=== PATIENT | female | born 1970 | race Caucasian/White ===

== ENCOUNTER 2022-01-22 07:48 | Inpatient (IN) ==
--- NOTE | 2022-01-22 07:52 | Emergency Department Note ---
Impression & Plan Reactive airway disease, Acute respiratory failure with hypoxia and hypercarbia, Bilateral lower leg cellulitis ED Provider Note NAME: RAJEEV ARELLANO AGE: 51 SEX: F : 1970 ARRIVES VIA: Ambulance INFORMANT: Patient, ED PROVIDER(S): Jacky Willis MD Chief Complaint: Shortness of breath HPI: Patient presents from a skilled facility due to concern for verbalizing shortness of breath earlier today and was noted to be hypotensive and hypoxic with a systolic in the 90s and SPO2 86 to low 90s at the facility. EMS stated the patient had an improved blood pressure and was never hypoxic and room air sats were in the 90s. Patient did receive a DuoNeb in route. The patient states that she does have cough but is not sure as whether or not it is productive. Patient has any chest pain or abdominal pain nausea vomiting. Patient denies any head or neck pain. No recent falls. History may be limited given the patient's prior history of trisomy 21. ROS: See HPI for pertinent positives and negatives. A total of 10 systems were reviewed and otherwise negative. May be limited given patient's history of trisomy 21. Past medical history: See below Surgical history: See below Social history: See below Physical Exam: GENERAL: NAD, wearing a mask, non-toxic. Wearing glasses. EYE EXAM: Normal conjunctiva. PERRL, no anisocoria and EOM's grossly intact w/o pain. NECK: Supple, no nuchal rigidity, no adenopathy, non-tender. No signs of meningismus. FROM of the neck with good chin to chest and neck extension. No stridor. LUNGS: Audible wheezes throughout. Slightly prolonged expiratory phase. Normal chest wall mechanics. HEART: NSR, no MRG. ABDOMEN: Abdomen soft, non-tender, normo-active bowel sounds, no masses, no rebound or guarding. BACK: No CVA TTP. SKIN: No rashes and no bruising. UPPER EXTREMITIES: Upper extremities are grossly normal. LOWER EXTREMITIES: Grossly normal, 1-2+ symmetric bilateral lower extremity edema with associated erythema. No fluctuance or drainage, compartments are soft neurovascular tact distally. NEURO EXAM: A&O x3, cranial nerves II-XII grossly intact, normal speech, moves all 4 extremities. Differential diagnoses: Reactive airway disease, pneumonia, pneumothorax, COPD, CHF, infections, cardiac ischemia, pulmonary embolism, musculoskeletal, gastrointestinal, as well as other pathologies. Course: Patient was seen and evaluated the bedside. Full history physical exam was performed. EKG interpreted by me Normal sinus rhythm, rate of 63, normal intervals, normal axis, T wave version lead III no ST elevations. Imaging Studies: See Below Cardiac monitoring: An order was placed for continuous cardiac monitoring. The monitor shows a rate of 67 with sinus rhythm. MDM: Patient presented due to concern for hypoxemia and associated shortness of breath. Did review patient's most recent visit back in November and patient did have some pulmonary vascular congestion. The patient was treated from a respiratory standpoint with duo nebs and steroids. The patient was trialed on BiPAP to see if she would tolerate. Patient did have chest x-ray completed along with COVID swab troponin BMP and VBG. Patient does have symmetric bilateral lower extremities erythema. Rocephin was ordered. Patient's blood work showed a normal white count H&H and platelet count. The patient's kidney function was unremarkable as the patient is at virtual baseline with creatinine 1.35. Slightly elevated. Patient did receive additional IV fluids as the patient's troponin and BNP were negative but the patient did have an elevated PCO2 of 80 the VBG pH is 7.31. Patient was also ordered additional neb treatments. I did encourage the patient remain on the BiPAP. The patient's chest x-ray does not show any acute findings. I did speak with Amy Poole PA-C and the patient was admitted by Dr. Murillo. Critical Care: I have personally spent 77 minutes of critical care time in direct management of this patient. This includes bedside care, interpretation of diagnostic studies, and testing, discussion with consultants, patient, and family members, and other require inpatient management activities. This 77 minutes is in excess of all separately billable procedures. Past Med/Surg History Medical History Acute respiratory failure with hypercapnia Acute respiratory failure with hypoxia and hypercapnia Dementia Depression Down syndrome Hx of breast lump Hypercapnia Hypercholesteremia Hypertension Hypoxia Primary hypothyroidism Surgical History S/P cataract surgery Family History Unknown History not obtained Per new pt paperwork family history is "unknown" Social History Smoking Status: Never smoker Hx Alcohol Use: No Hx Substance Use: No Feels Safe at Home: Yes Allergies Allergies Allergy/AdvReac Type Severity Reaction Status Date / Time No Known Drug Allergies Allergy Verified 12/23/21 12:57 Home Meds Home Medications Medication Instructions Recorded Confirmed atorvastatin 10 mg tablet 10 mg PO HS 01/18/19 01/22/22 bupropion HCl 300 mg 24 hr tablet, 300 mg PO DAILY 01/18/19 01/22/22 extended release calcium carbonate 600 mg calcium 600 mg PO DAILY 01/18/19 01/22/22 (1,500 mg) tablet carboxymethylcellulose sodium 0.5 1 drp ophthalmic (eye) BID 01/18/19 01/22/22 % eye drops in a dropperette donepezil 10 mg tablet 10 mg PO DAILY 01/18/19 01/22/22 quetiapine 25 mg tablet 25 mg PO DAILY 01/18/19 01/22/22 levothyroxine 100 mcg tablet 125 mcg PO DAILY 10/15/21 01/22/22 docusate sodium 100 mg capsule 100 mg PO BID 01/22/22 01/22/22 Results & Data (ED) Vital Signs Vital Signs - 24 hr 01/22/22 07:55 01/22/22 07:55 01/22/22 08:01 Temperature 36.6 C Temperature Source Oral Pulse Rate 64 Pulse Rate [Apical] Respiratory Rate 20 Respiratory Effort / Characteristics Respiratory Depth Blood Pressure 109/48 L Blood Pressure [Left Arm] Blood Pressure Mean 68 Blood Pressure Mean [Left Arm] Pulse Oximetry 93 92 99 Oxygen Delivery Method Room Air Room Air Nasal Cannula Nasal Cannula Oxygen Flow Rate 0 4 Fraction of Inspired Oxygen Sepsis Recent Fever Within 48 Hours No Sepsis New/Unexplained Change in Mental Status No Sepsis Action Taken by Nursing No Action Required Oxygen Flow Rate - Titration 4 Pulse Oximetry Post Tiitration 99 01/22/22 08:09 01/22/22 08:12 01/22/22 09:41 Temperature Temperature Source Pulse Rate 67 Pulse Rate [Apical] 67 60 Respiratory Rate 34 H 34 H 25 H Respiratory Effort / Characteristics Spontaneous Spontaneous Non-Labored Spontaneous Respiratory Depth Shallow Blood Pressure Blood Pressure [Left Arm] Blood Pressure Mean Blood Pressure Mean [Left Arm] Pulse Oximetry 96 96 95 Oxygen Delivery Method BiPAP BiPAP Oxygen Flow Rate Fraction of Inspired Oxygen 24 24 21 Sepsis Recent Fever Within 48 Hours Sepsis New/Unexplained Change in Mental Status Sepsis Action Taken by Nursing Oxygen Flow Rate - Titration Pulse Oximetry Post Tiitration 01/22/22 09:49 Temperature Temperature Source Pulse Rate Pulse Rate [Apical] 62 Respiratory Rate 20 Respiratory Effort / Characteristics Respiratory Depth Blood Pressure Blood Pressure [Left Arm] 126/69 Blood Pressure Mean Blood Pressure Mean [Left Arm] 88 Pulse Oximetry 95 Oxygen Delivery Method BiPAP Oxygen Flow Rate Fraction of Inspired Oxygen Sepsis Recent Fever Within 48 Hours Sepsis New/Unexplained Change in Mental Status Sepsis Action Taken by Nursing Oxygen Flow Rate - Titration Pulse Oximetry Post Tiitration Home Medications Current Medication List: was personally reviewed by me Laboratory Data Attestation: I reviewed the patient's lab results. Result diagrams: 01/22/22 08:35 01/22/22 08:35 Lab Results 01/22/22 01/22/22 01/22/22 Range/Units 08:05 08:35 08:35 WBC 5.23 (4.8-10.8) K/ul RBC 4.28 (3.93-5.22) M/uL Hgb 13.6 (12.0-16.0) g/dl Hct 42.2 (34.1-44.9) % MCV 98.6 (80.0-100.0) fL MCH 31.8 (25.0-34.0) pg MCHC 32.2 (32.0-36.0) g/dL RDW Std Deviation 50.4 H (36.4-46.3) fL RDW Coeff of Matt 13.7 (11.5-14.5) % Plt Count 153 (130-400) K/uL MPV 10.1 (9.4-12.3) fL Immature Gran % (Auto) 1.1 % Neut % (Auto) 33.4 % Lymph % (Auto) 52.0 % [place] % (Auto) 10.1 % Eos % (Auto) 2.3 % Baso % (Auto) 1.1 % Neut # (Auto) 1.74 (1.4-6.5) K/uL Lymph # (Auto) 2.72 (1.2-3.4) K/uL [place] # (Auto) 0.53 (0.24-0.82) K/uL Eos # (Auto) 0.12 (0-0.50) K/uL Baso # (Auto) 0.06 (0-0.2) K/uL Immature Gran # (Auto) 0.06 H (0.00-0.02) K/uL PT (9.0-12.0) Seconds INR (0.9-1.1) APTT (21.0-31.0) Seconds PTT Ratio VBG pH (7.36-7.41) VBG pCO2 (38-50) mmHg VBG pO2 mmHg VBG HCO3 mmol/L VBG O2 Saturation % VBG Base Excess mEq/L Sodium 139 (136-145) mmol/L Potassium 4.4 (3.5-5.1) mmol/L Chloride 100 (98-107) mmol/L Carbon Dioxide 35 H (21-32) mmol/L Anion Gap 4 (3-11) BUN 20 (6-23) mg/dl Creatinine 1.35 H (0.6-1.2) mg/dl Est Cr Clr Drug Dosing 62.2 ml/min Est GFR ( Amer) 51.8 ml/min Est GFR (Non-Af Amer) 44.7 ml/min BUN/Creatinine Ratio 14.8 (10-20) Glucose 108 H (70-99(Fasting)) mg/dl Calcium 8.9 (8.5-10.1) mg/dl Magnesium 1.9 (1.7-2.4) mg/dl Total Bilirubin 0.4 (0.2-1.0) mg/dl AST 23 (13-39) U/L ALT 14 (7-52) U/L Alkaline Phosphatase 80 (34-104) U/L Troponin I High Sens 6.2 (0-14) pg/ml B-Natriuretic Peptide (0-100) pg/ml Total Protein 6.1 (6.0-8.3) gm/dl Albumin 3.7 (3.4-5.0) gm/dl Globulin 2.4 L (2.5-4.0) gm/dl Albumin/Globulin Ratio 1.5 (0.9-2) Procalcitonin (0-0.5) ng/ml SARS-CoV-2, RNA, NAAT NEGATIVE (NEGATIVE) 01/22/22 01/22/22 01/22/22 Range/Units 08:35 08:35 08:35 WBC (4.8-10.8) K/ul RBC (3.93-5.22) M/uL Hgb (12.0-16.0) g/dl Hct (34.1-44.9) % MCV (80.0-100.0) fL MCH (25.0-34.0) pg MCHC (32.0-36.0) g/dL RDW Std Deviation (36.4-46.3) fL RDW Coeff of Matt (11.5-14.5) % Plt Count (130-400) K/uL MPV (9.4-12.3) fL Immature Gran % (Auto) % Neut % (Auto) % Lymph % (Auto) % [place] % (Auto) % Eos % (Auto) % Baso % (Auto) % Neut # (Auto) (1.4-6.5) K/uL Lymph # (Auto) (1.2-3.4) K/uL [place] # (Auto) (0.24-0.82) K/uL Eos # (Auto) (0-0.50) K/uL Baso # (Auto) (0-0.2) K/uL Immature Gran # (Auto) (0.00-0.02) K/uL PT (9.0-12.0) Seconds INR (0.9-1.1) APTT (21.0-31.0) Seconds PTT Ratio VBG pH 7.31 L (7.36-7.41) VBG pCO2 80 H (38-50) mmHg VBG pO2 33 mmHg VBG HCO3 40 mmol/L VBG O2 Saturation < 60.0 % VBG Base Excess 10.6 mEq/L Sodium (136-145) mmol/L Potassium (3.5-5.1) mmol/L Chloride (98-107) mmol/L Carbon Dioxide (21-32) mmol/L Anion Gap (3-11) BUN (6-23) mg/dl Creatinine (0.6-1.2) mg/dl Est Cr Clr Drug Dosing ml/min Est GFR ( Amer) ml/min Est GFR (Non-Af Amer) ml/min BUN/Creatinine Ratio (10-20) Glucose (70-99(Fasting)) mg/dl Calcium (8.5-10.1) mg/dl Magnesium (1.7-2.4) mg/dl Total Bilirubin (0.2-1.0) mg/dl AST (13-39) U/L ALT (7-52) U/L Alkaline Phosphatase (34-104) U/L Troponin I High Sens (0-14) pg/ml B-Natriuretic Peptide 20 (0-100) pg/ml Total Protein (6.0-8.3) gm/dl Albumin (3.4-5.0) gm/dl Globulin (2.5-4.0) gm/dl Albumin/Globulin Ratio (0.9-2) Procalcitonin < 0.05 (0-0.5) ng/ml SARS-CoV-2, RNA, NAAT (NEGATIVE) 01/22/22 Range/Units 09:03 WBC (4.8-10.8) K/ul RBC (3.93-5.22) M/uL Hgb (12.0-16.0) g/dl Hct (34.1-44.9) % MCV (80.0-100.0) fL MCH (25.0-34.0) pg MCHC (32.0-36.0) g/dL RDW Std Deviation (36.4-46.3) fL RDW Coeff of Matt (11.5-14.5) % Plt Count (130-400) K/uL MPV (9.4-12.3) fL Immature Gran % (Auto) % Neut % (Auto) % Lymph % (Auto) % [place] % (Auto) % Eos % (Auto) % Baso % (Auto) % Neut # (Auto) (1.4-6.5) K/uL Lymph # (Auto) (1.2-3.4) K/uL [place] # (Auto) (0.24-0.82) K/uL Eos # (Auto) (0-0.50) K/uL Baso # (Auto) (0-0.2) K/uL Immature Gran # (Auto) (0.00-0.02) K/uL PT 14.5 H (9.0-12.0) Seconds INR 1.4 H (0.9-1.1) APTT 29.1 (21.0-31.0) Seconds PTT Ratio 1.1 VBG pH (7.36-7.41) VBG pCO2 (38-50) mmHg VBG pO2 mmHg VBG HCO3 mmol/L VBG O2 Saturation % VBG Base Excess mEq/L Sodium (136-145) mmol/L Potassium (3.5-5.1) mmol/L Chloride (98-107) mmol/L Carbon Dioxide (21-32) mmol/L Anion Gap (3-11) BUN (6-23) mg/dl Creatinine (0.6-1.2) mg/dl Est Cr Clr Drug Dosing ml/min Est GFR ( Amer) ml/min Est GFR (Non-Af Amer) ml/min BUN/Creatinine Ratio (10-20) Glucose (70-99(Fasting)) mg/dl Calcium (8.5-10.1) mg/dl Magnesium (1.7-2.4) mg/dl Total Bilirubin (0.2-1.0) mg/dl AST (13-39) U/L ALT (7-52) U/L Alkaline Phosphatase (34-104) U/L Troponin I High Sens (0-14) pg/ml B-Natriuretic Peptide (0-100) pg/ml Total Protein (6.0-8.3) gm/dl Albumin (3.4-5.0) gm/dl Globulin (2.5-4.0) gm/dl Albumin/Globulin Ratio (0.9-2) Procalcitonin (0-0.5) ng/ml SARS-CoV-2, RNA, NAAT (NEGATIVE) Administered Medications Azithromycin 500 mg/ Dextrose 255 mls @ 125 mls/hr IV ONE ONE Stop: 01/22/22 15:06 Last Admin: 01/22/22 14:00 Dose: 125 mls/hr Documented By: ENS Discontinued Medications Albuterol (Albut/Ipratrop 3mg/0.5mg Neb 3 Ml Vial) 3 ml INH NOW STA Stop: 01/22/22 07:59 Last Admin: 01/22/22 08:11 Dose: 3 ml Documented By: KMS Albuterol (Albut/Ipratrop 3mg/0.5mg Neb 3 Ml Vial) 6 ml NEB NOW STA; Protocol Stop: 01/22/22 09:21 Last Admin: 01/22/22 09:40 Dose: 6 ml Documented By: EM Furosemide (Furosemide Inj 20 Mg/2 Ml Vial) 20 mg IV ONE ONE Stop: 01/22/22 12:07 Last Admin: 01/22/22 12:32 Dose: 20 mg Documented By: AY Sodium Chloride (Nss 1000ml) 250 mls @ 999 mls/hr IV .Q16M ONE Stop: 01/22/22 08:17 Last Infusion: 01/22/22 09:12 Dose: 0 mls/hr Documented By: Admin: 01/22/22 08:55 Dose: 999 mls/hr Documented By: OL Ceftriaxone Sodium (Rocephin) 2,000 mg in 70 mls @ 140 mls/hr IV NOW STA Stop: 01/22/22 08:31 Last Infusion: 01/22/22 09:27 Dose: 0 mls/hr Documented By: Admin: 01/22/22 08:55 Dose: 140 mls/hr Documented By: OL Sodium Chloride (Nss 1000ml) 500 mls @ 999 mls/hr IV .Q31M ONE Stop: 01/22/22 09:50 Last Infusion: 01/22/22 10:19 Dose: 0 mls/hr Documented By: Admin: 01/22/22 09:48 Dose: 999 mls/hr Documented By: OL Lorazepam (Lorazepam 2 Mg/2 Ml Syr) 1 mg IV NOW STA; Protocol Stop: 01/22/22 08:24 Last Admin: 01/22/22 09:00 Dose: Not Given Documented By: OL Magnesium Oxide (Magnesium Oxide 400 Mg Tab) 400 mg PO ONCE ONE Stop: 01/22/22 12:16 Last Admin: 01/22/22 12:32 Dose: 400 mg Documented By: AY Methylprednisolone (Methylprednisolone 125 Mg/2 Ml Vial) 60 mg IV NOW STA Stop: 01/22/22 07:59 Last Admin: 01/22/22 08:55 Dose: 60 mg Documented By: OL Imaging Data Radiologist's Impression: Chest X-Ray 01/22/22 07:58 XR chest 1V portable CLINICAL HISTORY: Dyspnea. COMPARISON STUDY: Chest radiograph December 14, 2021. FINDINGS: Lung volumes are normal. Lungs are clear. There is no pneumothorax or pleural effusion. Cardiac size is normal. Mediastinal contours are normal. There is no evidence for pulmonary edema. Pulmonary vascular congestion has slightly improved. IMPRESSION: No acute cardiopulmonary findings. ACT 112: Negative or not required by law. Electronically signed by: Darryl Hays M.D. 01/22/2022 8:33 AM Discharge Plan Visit Data Chief Complaint: Shortness of Breath/Dyspnea Stated Complaint: SOB ED Provider: Jacky Willis Discharge Problem: Reactive airway disease, Acute respiratory failure with hypoxia and hypercarbia, Bilateral lower leg cellulitis
[2022-01-22] MEDS ORDERED: ALBUT/IPRATROP 3MG/0.5MG NEB 3 ML VIAL INH STA (07:58)
[2022-01-22] MEDS ORDERED: methylPREDNISolone 125 MG/2 ML VIAL IV STA (07:58)
[2022-01-22] MEDS ORDERED: cefTRIAXone SODIUM 2,000 MG/70 ML BAG IV STA (08:02)
[2022-01-22] MEDS ORDERED: SODIUM CHLORIDE 0.9% 1000ML 250 ML IV ONE (08:02)
[2022-01-22] MEDS ORDERED: LORazepam 2 MG/2 ML SYR IV STA (08:23)
--- NOTE | 2022-01-22 08:34 | XRay Report ---
XR chest 1V portable CLINICAL HISTORY: Dyspnea. COMPARISON STUDY: Chest radiograph December 14, 2021. FINDINGS: Lung volumes are normal. Lungs are clear. There is no pneumothorax or pleural effusion. Car diac size is normal. Mediastinal contours are normal. There is no evidence for pulmonary edema. Pulmo nary vascular congestion has slightly improved. IMPRESSION: No acute cardiopulmonary findings. ACT 112: Negative or not required by law. Electronically signed by: Darryl Hays M.D. 01/22/2022 8:33 AM
[2022-01-22 08:51] LABS: Hematocrit (blood only) 42.2 % (34.1-44.9); Hemoglobin 13.6 g/dl (12.0-16.0); Mean Corpuscular Hemoglobin 31.8 pg (25.0-34.0); Mean Corpuscular Hgb Conc 32.2 g/dL (32.0-36.0); Mean Corpuscular Volume 98.6 fL (80.0-100.0); Mean Platelet Volume 10.1 fL (9.4-12.3); Platelet Count 153 K/uL (130-400); RDW Coefficient of Variation 13.7 % (11.5-14.5); RDW Standard Deviation 50.4 fL (36.4-46.3); Red Blood Count 4.28 M/uL (3.93-5.22); White Blood Count 5.23 K/ul (4.8-10.8)
[2022-01-22 09:02] LABS: Base Excess VBG 10.6 mEq/L; HCO3 VBG 40 mmol/L; Oxygen Saturation VBG < 60.0 %; PCO2 VBG 80 mmHg (38-50); PO2 VBG 33 mmHg; pH VBG 7.31 (7.36-7.41)
[2022-01-22] MEDS ORDERED: SODIUM CHLORIDE 0.9% 1000ML 500 ML IV ONE (09:20)
[2022-01-22] MEDS ORDERED: ALBUT/IPRATROP 3MG/0.5MG NEB 3 ML VIAL NEB STA (09:20)
[2022-01-22 09:21] LABS: Albumin Globulin Ratio 1.5 (0.9-2); Albumin Level 3.7 gm/dl (3.4-5.0); BUN Creatinine Ratio 14.8 (10-20); Bilirubin,Total 0.4 mg/dl (0.2-1.0); Calcium 8.9 mg/dl (8.5-10.1); Creatinine Clr Calc Pharmacy 62.2 ml/min; Est GFR (African American) 51.8 ml/min; Est GFR (Non-African American) 44.7 ml/min; Globulin 2.4 gm/dl (2.5-4.0); Magnesium 1.9 mg/dl (1.7-2.4); Potassium 4.4 mmol/L (3.5-5.1); Total Protein 6.1 gm/dl (6.0-8.3)
[2022-01-22 09:23] LABS: Troponin I High Sensitivity 6.2 pg/ml (0-14)
[2022-01-22 09:43] LABS: Basophils # (auto) 0.06 K/uL (0-0.2); Basophils % (auto) 1.1 %; Eosinophils # (auto) 0.12 K/uL (0-0.50); Eosinophils % (auto) 2.3 %; Immature Granulocytes # (auto) 0.06 K/uL (0.00-0.02); Immature Granulocytes % (auto) 1.1 %; Lymphocytes # (auto) 2.72 K/uL (1.2-3.4); Monocytes # (auto) 0.53 K/uL (0.24-0.82); Monocytes % (auto) 10.1 %; Neutrophils # (auto) 1.74 K/uL (1.4-6.5); Neutrophils % (auto) 33.4 %
[2022-01-22 09:46] LABS: INR 1.4 (0.9-1.1); Partial Thromboplastin Ratio 1.1; Partial Thromboplastin Time 29.1 Seconds (21.0-31.0); Prothrombin Time 14.5 Seconds (9.0-12.0)
--- NOTE | 2022-01-22 10:49 | History & Physical Report ---
Date of Service January 22, 2022 Assessment & Plan (1) Acute respiratory failure with hypoxia and hypercapnia: (2) Dementia: (3) Primary hypothyroidism: (4) Depression: (5) Down syndrome: Plan Ms. Wayen is a 51 year old female who presents to the [facility] from her home at [facility] with shortness of breath and hypotension. VBG done; will obtain ABG. On Bipap and improving. Pulm consult for new respiratory failure (possible COPD), CXR in AM, IV abx x 5 days. Consideration for her symptoms being cardiogenic in nature vs coexisting alveolar disease. Will consult pulmonary for further direction. Acute Respiratory failure with hypoxia and hypercapnia: Multi-factorial. 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 CXR negative today; compared with 12/14 with vascular congestion. Possible cardiogenic in nature; will give one dose Lasix now. Pulmonary consult placed; poss PFT's when stable, none in history. No history of asthma or documented COPD If tolerating Bipap, may need to look at Pulm recc on Trilogy VBG: pH 7.31, CO2 80, HCO3 40; will repeat Last ECHO 07/03: EF 55%; will repeat today procal pending Pt was placed on Bipap in ED FiO2 21%, Pinsp 8, PEEP 5 Mg+ 1.9; replete with PO; trend in AM. Started on Rocephin in ED. Will order Azithromycin IV x 5 days Methylprednisone IV TID CXR in AM. Covid negative BNP and Trop neg Down Syndrome: Some history obtained not reliable due to intellect challenges Pt lives at [facility]; has 09/11 nursing caregiver Follows bowel regimen every third day; due today. They use MOM PO once. Dementia: Stable; on Aricept FAST score: all of 6 requires staff to anticipate most of her ADL needs Primary Hypothyroidism: Stable; TSH 12/31: 0.87; continue Levothyroxine Depression with Anxiety: Follows at [facility] with Psych caregiver notes audible and visual hallucinations Takes Seroquel and Buproprion; continue HLD: Stable; continue atorvastatin lipid panel in AM Disposition: PCP: Dr. uDmont Code: Full VTE Prophylaxis: Lovenox Plan to return to [facility] upon DC I personally was able to review all current laboratory work and diagnostic images obtained in the ED. Additionally, I was able to review the patients past medication reconciliation and history with direct visualization in the patients chart. I collaborated about this patient with Dr. Murillo. History of Present Illness Chief Complaint: shortness of breath/hypotension Primary Care Provider: Christine Dumont MD Ms. Wayne is a 51 year old female who presents to the [facility] from her home at [facility] with shortness of breath and hypotension. Per EMS she was noted to be hypoxic in the mid to high 80s and hypotensive with a SBP in the 90s. In route she was given a duoneb treatment. CXR was obtained and negative. She was recently in the ED on 12/14/2021 for similar symptoms and some vascular congestion was noted. Patient was placed on Bipap FiO2 21% and is tolerating well. Will admit patient and check ABG. She was given a dose of Methylprednisone and was started on Rocephin for possible bilateral lower extremity cellulitis. Patient has a PMH that includes Trisomy 21, HLD, primary HTN, hypothyroidism, dementia, and depression with anxiety. In the ED, the patient was sitting upright in her bed in no apparent distress. She is awake, alert, and oriented to herself, but all medical details obtained from her caregiver Marla in the room. Patient denies SOTO, dizziness, SOB and CP. Poor historian and not reliable with ROS. During my review of the chart, the patients most recent ECHO was 07/08 with an EF of 55%. Patient does not have a reportable pulmonary history with no report of asthma or COPD. No PFTs on file. Pt does have a rescue inhaler but has not used it recently. Consideration for her symptoms being cardiogenic in nature vs coexisting alveolar disease. Will consult pulmonary for further direction. Patient will be admitted under the hospitalist service for further evaluation and management. Please see A/P for further details. Allergies Allergy/AdvReac Type Severity Reaction Status Date / Time No Known Drug Allergies Allergy Verified 12/23/21 12:57 Home Medications Medication Instructions Recorded Confirmed Type atorvastatin 10 mg tablet 10 mg PO HS 01/18/19 01/22/22 History bupropion HCl 300 mg 24 hr tablet, 300 mg PO DAILY 01/18/19 01/22/22 History extended release calcium carbonate 600 mg calcium 600 mg PO DAILY 01/18/19 01/22/22 History (1,500 mg) tablet carboxymethylcellulose sodium 0.5 1 drp ophthalmic (eye) BID 01/18/19 01/22/22 History % eye drops in a dropperette donepezil 10 mg tablet 10 mg PO DAILY 01/18/19 01/22/22 History quetiapine 25 mg tablet 25 mg PO DAILY 01/18/19 01/22/22 History levothyroxine 100 mcg tablet 125 mcg PO DAILY 10/15/21 01/22/22 History docusate sodium 100 mg capsule 100 mg PO BID 01/22/22 01/22/22 History Past Med/Surg History Medical History Acute respiratory failure with hypercapnia Acute respiratory failure with hypoxia and hypercapnia Dementia Depression Down syndrome Hx of breast lump Hypercapnia Hypercholesteremia Hypertension Hypoxia Primary hypothyroidism Surgical History S/P cataract surgery Family History Unknown History not obtained Per new pt paperwork family history is "unknown" Social History Smoking Status: Never smoker Hx Alcohol Use: No Hx Substance Use: No Preferred Language: Albanian Communication Ability: Effective 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 Lungs posteriorly expiratory wheezes GI: Abdomen large S/NT/ND, hypoactive bowel sounds, (-) CVA tenderness Musculoskeletal: 4/5 B/L UE strength, 4/5 B/L LE strength. No gait disturbance; uses walker Skin: (-) rashes , (-) erythema. Psych: euthymic mood Results & Data Results & Data ([facility]) Vital Signs (Past 12 Hours) Vital Signs Temp Pulse Pulse Resp BP BP Pulse Ox 01/22/22 09:49 62 20 126/69 95 01/22/22 09:41 60 25 H 95 01/22/22 08:12 67 34 H 96 01/22/22 08:09 67 34 H 96 01/22/22 08:01 99 01/22/22 07:55 92 01/22/22 07:55 36.6 C 64 20 109/48 L 93 O2 Del Method O2 Flow Rate FiO2 01/22/22 09:49 BiPAP 01/22/22 09:41 BiPAP 21 01/22/22 08:12 BiPAP 24 01/22/22 08:09 24 01/22/22 08:01 Nasal Cannula 4 01/22/22 07:55 Room Air, Nasal Cannula 0 01/22/22 07:55 Room Air Laboratory Results Short CBC 01/22/22 Range/Units 08:35 WBC 5.23 (4.8-10.8) K/ul Hgb 13.6 (12.0-16.0) g/dl Hct 42.2 (34.1-44.9) % Plt Count 153 (130-400) K/uL BMP 01/22/22 08:35 Sodium 139 Potassium 4.4 Chloride 100 Carbon Dioxide 35 H BUN 20 Creatinine 1.35 H Glucose 108 H Calcium 8.9 Liver Function 01/22/22 Range/Units 08:35 Total Bilirubin 0.4 (0.2-1.0) mg/dl AST 23 (13-39) U/L ALT 14 (7-52) U/L Alkaline Phosphatase 80 (34-104) U/L Albumin 3.7 (3.4-5.0) gm/dl Diagnostic Findings Chest X-Ray 01/22/22 07:58 XR chest 1V portable CLINICAL HISTORY: Dyspnea. COMPARISON STUDY: Chest radiograph December 14, 2021. FINDINGS: Lung volumes are normal. Lungs are clear. There is no pneumothorax or pleural effusion. Cardiac size is normal. Mediastinal contours are normal. There is no evidence for pulmonary edema. Pulmonary vascular congestion has slightly improved. IMPRESSION: No acute cardiopulmonary findings. ACT 112: Negative or not required by law. Electronically signed by: Darryl Hays M.D. 01/22/2022 8:33 AM ECG Additional Comments: NSR Vent. Rate : 063 BPM Atrial Rate : 063 BPM P-R Int : 128 ms QRS Dur : 076 ms QT Int : 410 ms QTc Int : 419 ms Code Status & VTE Plan Code Status full code in the event of cardiac or respiratory arrest VTE Prophylaxis Plan VTE Prophylaxis will be ordered: Yes Supervising Physician Co-Signing Physician Notes 51-year-old lady from a skilled assisted living with PMH of Down syndrome, dementia, primary hypothyroidism, depression with anxiety, HLD presented to ED 01/22 with complaint of shortness of breath and hypertension. Per EMS, she was noted to be hypoxic in the 80s and hypotensive with SBP in the 90s. Per patient's caregiver at bedside, her SPO2 varied between 84 to 91% and blood pressure was in 90s/60s [generally her blood pressure is in 130s/80s]. Patient reports some dry cough, denies any fever or chest pain or sore throat. Her baseline creatinine is around 1.3-1.5. Admitting CXR with no acute findings. Admitting BNP of 20. Patient does take Lasix every other day for lower extremity swelling. Per caregiver, patient does have history of heart f ailure. We will get updated echo. Received a dose of iv lasix today. Patient was wheezing on exam. Admitting VBG with hypercapnia noted. Patient was placed on BiPAP in the ED. Patient received Solu-Medrol in the ED. Likely reactive airway disease, concern for asthma, not a prior diagnosis of asthma COPD per patient's caregiver. We will continue with Solu-Medrol 3 times daily. rocephin/azithro for pulmonary coverage initiated initially, procal and WBC normal, will monitor off of antibiotic. Pulmonology consult. Monitor and replete electrolytes. Continue with/resume home meds as and when appropriate. Also concern for likely MICHI/OHS secondary to morbid obesity, will benefit from outpatient sleep study. On exam: GENERAL: Alert and oriented x3. NAD, on BiPAP, obese class III. HEENT: No pallor, no icterus. Pupils equal, round and reactive to light. Oral mucosa moist. NECK: No JVD, no neck masses. HEART: S1 and S2 heard. Regular rate and rhythm. No murmur, no gallop. RESPIRATORY SYSTEM: Normal AP diameter. No accessory muscle use. + wheezing, no crackles. ABDOMEN: Soft, bowel sounds present, nontender, no distention. CENTRAL NERVOUS SYSTEM: No facial droop. Speech is clear. Obeys simple commands. Moves extremities. EXTREMITIES: 1-2+ edema, no erythema seen. I have seen and examined the patient and have discussed the case with the provider above. I agree with the assessment and plan as stated.
[2022-01-22] MEDS ORDERED: FUROSEMIDE INJ 20 MG/2 ML VIAL IV ONE (12:06)
[2022-01-22] MEDS ORDERED: MAGNESIUM OXIDE 400 MG TAB PO ONE (12:15)
--- NOTE | 2022-01-22 12:19 | Pulmonary Consultation ---
Date of Consultation January 22, 2022 Assessment & Plan (1) Reactive airway disease: Asthma complication type: with acute exacerbation Asthma persi stence: unspecified Asthma severity: unspecified severity Qualified Code(s): J45.901 - Unspecified asthma with (acute) exacerbation (2) Acute respiratory failure with hypoxia and hypercapnia: (3) Morbid obesity: Plan Chest x-ray 01/22/2022 personally reviewed: Portable film, good respiratory eff ort, bilateral costophrenic and cardiophrenic encircling, no clear lung infiltrate appreciated VBG 01/22/2022: pH 7.31/80/33 -- Acute on chronic hypercapnic respiratory failure Likely secondary to MICHI/OHS Possibility of asthma is also there, expiratory wheeze could also be from dynamic collapse COVID-19 NAAT negative Continue with BiPAP nightly and as needed shortness of breath Will repeat ABG in the morning, if the patient is still hypercapnic and she might benefit from trilogy machine Do not over oxygenate the patient. Keep O2 saturation between 88-92% -- Morbid obesity with probable MICHI/OHS Bicarb 35 in the serum -- Lower extremity edema Could be from pulmonary hypertension Would recommend 2D echo Plan: Continue with BiPAP 01/22 Do not over oxygenate the patient Keep O2 saturation between 88-92% Decree Solu-Medrol to 40 mg every 12, start the patient on Perforomist nebulized twice daily Please note the above document was generated using voice recognition software. It may contain grammatical, syntax or spelling errors.Any formal questions or concerns about the content, text or information contained within the body of this dictation should be directly addressed to the provider for clarification. History of Present Illness History of Present Illness 51-year-old female presented to the hospital with complaints of shortness of breath Past medical history Down syndrome, dyslipidemia, hypothyroidism, depression with anxiety Patient was found to be mildly hypercapnic on the VBG, pulmonary were consulted for the same At the time of examination patient was saturating well on room air Patient is a poor historian. Patient said that she is feeling better since coming to the hospital She was on room air saturating 94%. Denied any chest pain, no headache, occasional cough with clear phlegm No diarrhea, no fever or chills at home. Social history: Lifetime non-smoker. Allergies Allergy/AdvReac Type Severity Reaction Status Date / Time No Known Drug Allergies Allergy Verified 12/23/21 12:57 Home Medications Medication Instructions Recorded Confirmed Type atorvastatin 10 mg tablet 10 mg PO HS 01/18/19 01/22/22 History bupropion HCl 300 mg 24 hr tablet, 300 mg PO DAILY 01/18/19 01/22/22 History extended release calcium carbonate 600 mg calcium 600 mg PO DAILY 01/18/19 01/22/22 History (1,500 mg) tablet carboxymethylcellulose sodium 0.5 1 drp ophthalmic (eye) BID 01/18/19 01/22/22 History % eye drops in a dropperette donepezil 10 mg tablet 10 mg PO DAILY 01/18/19 01/22/22 History quetiapine 25 mg tablet 25 mg PO DAILY 01/18/19 01/22/22 History levothyroxine 100 mcg tablet 125 mcg PO DAILY 10/15/21 01/22/22 History docusate sodium 100 mg capsule 100 mg PO BID 01/22/22 01/22/22 History Patient History Medical History Acute respiratory failure with hypercapnia Acute respiratory failure with hypoxia and hypercapnia Dementia Depression Down syndrome Hx of breast lump Hypercapnia Hypercholesteremia Hypertension Hypoxia Primary hypothyroidism Surgical History S/P cataract surgery Family History Unknown History not obtained Per new pt paperwork family history is "unknown" Social History Smoking Status: Never smoker Hx Alcohol Use: No Hx Substance Use: No Preferred Language: Vietnamese Communication Ability: Effective Litharge Supervisor Required: No Beliefs That Will Affect Care: None Current Living Situation: Other Current Living Situation Comment: Lives at the [facility] Feels Safe at Home: Yes Safety Concerns: Feels Safe At This Time Assistive Devices: Glasses and Walker Review of Systems Review of Systems: All systems reviewed & are unremarkable except as noted in HPI & below Physical Exam Physical Exam: Constitutional: No acute distress HEENT: EOMI, PERRLA, thick short neck Respiratory system: Decreased air entry bilaterally, no rhonchi, mild crackles bilateral lower lobes, minimal expiratory wheeze CVS: S1-S2 positive, no murmurs or gallops Abdomen: Soft, nontender, nondistended, positive bowel sounds x4 Extremities: +2 pulses bilaterally radialis/ dorsalis pedis, no cyanosis, +2 pitting edema bilateral lower extremity Neuro: Awake alert oriented to self and place Psych: Normal mood and affect G/U: No [place] Skin: no rashes, warm and dry Lymphatic: no cervical or axillary lymphadenopathy Results & Data Results & Data ([facility]) Vital Signs (Past 12 Hours) Vital Signs Temp Pulse Pulse Resp BP BP Pulse Ox 01/22/22 09:49 62 20 126/69 95 01/22/22 09:41 60 25 H 95 01/22/22 08:12 67 34 H 96 01/22/22 08:09 67 34 H 96 01/22/22 08:01 99 01/22/22 07:55 92 01/22/22 07:55 36.6 C 64 20 109/48 L 93 O2 Del Method O2 Flow Rate FiO2 01/22/22 09:49 BiPAP 01/22/22 09:41 BiPAP 21 01/22/22 08:12 BiPAP 24 01/22/22 08:09 24 01/22/22 08:01 Nasal Cannula 4 01/22/22 07:55 Room Air, Nasal Cannula 0 01/22/22 07:55 Room Air Laboratory Results 01/22/22 08:35 01/22/22 08:35 PG Care Time/CCT Total # of Minutes Spent Total Time Spent with Patient: Total time spent is greater than 50% in coordination of care (as documented) at patient's floor/unit and/or counseling patient: Coding Level of Care Code 47117 Initial Inpt Care Lvl 3 Diagnoses Reactive airway disease J45.901 Asthma complication type: with acute exacerbation Asthma persistence: unspecified Asthma severity: unspecified severity Acute respiratory failure with hypoxia and hypercapnia J96.01; J96.02 Morbid obesity E66.01
[2022-01-22 12:53] LABS: Appearance Urine Clear (Clear); Bacteria Urine Automated Negative (Negative); Bilirubin Urine Negative (Negative); Blood Urine Negative (Negative); Color Urine Yellow; Epithelial Cell Urine Auto >30 /lpf (0-5); Glucose Urine UA Negative (Negative); Ketones Urine Negative (Negative); Leukocyte Esterase Urine Trace (Negative); Nitrite Urine Negative (Negative); Specific Gravity Urine 1.021 (1.000-1.030); Urobilinogen Urine Negative (Negative)
[2022-01-22 12:55] LABS: Protein Urine Trace (Negative)
[2022-01-22] MEDS ORDERED: POLYETHYLENE (MIRALAX) 17 GM PACK PO PRN (13:04)
[2022-01-22] MEDS ORDERED: MAGNESIUM HYDROXIDE SUSP 30 ML UDC PO PRN (13:04)
[2022-01-22] MEDS ORDERED: ALUMINUM/MAGNESIUM SUSP 30 ML UDC PO PRN (13:04)
[2022-01-22] MEDS ORDERED: AZITHROMYCIN 500 MG in DEXTROSE 5% 250 ML IV ONE (13:04)
[2022-01-22] MEDS ORDERED: ONDANSETRON INJ 2 MG/ML 2 ML VIAL IV PRN (13:04)
[2022-01-22] MEDS ORDERED: ACETAMINOPHEN 325 MG TAB PO PRN (13:04)
--- NOTE | 2022-01-22 13:30 | Electrocardiogram Report ---
Test Reason : Blood Pressure : / mmHG Vent. Rate : 063 BPM Atrial Rate : 063 BPM P-R Int : 128 ms QRS Dur : 076 ms QT Int : 410 ms P-R-T Axes : 045 019 012 degrees QTc Int : 419 ms Normal sinus rhythm Normal ECG When compared with ECG of 14-DEC-2021 12:00, No significant change was found Confirmed by Evin Montgomery ([id number]) on 01/22/2022 1:30:11 PM Referred By: Confirmed By:Kei Montgomery
[2022-01-22] MEDS ORDERED: methylPREDNISolone 40 MG in SYRINGE 0 ML IV SCH (14:00)
[2022-01-22 16:52] LABS: Base Excess ABG 6.6 mEq/L (-9-1.8); HCO3 ABG 31 mmol/L (19-24); Oxygen Saturation ABG 96.3 % (90-95); PCO2 ABG 40 mmHg (35-46); PO2 ABG 69 mmHg (80-95); pH ABG 7.49 (7.35-7.45)
[2022-01-22 17:29] LABS: Allen Test POS (Pos)
[2022-01-22] MEDS ORDERED: FORMOTEROL 20 MCG/2 ML VIAL ONE (19:01)
[2022-01-22] MEDS: FORMOTEROL 20 MCG/2 ML VIAL NEB SCH (19:25)
[2022-01-22] MEDS: ARTIFICIAL TEARS OP SCH (20:18)
[2022-01-22] MEDS: methylPREDNISolone 40 MG in SYRINGE 0 ML IV SCH (20:18)
[2022-01-22] MEDS: ATORVASTATIN 10 MG TAB PO SCH (20:19)
[2022-01-22] MEDS: DOCUSATE SODIUM 100 MG CAP PO SCH (20:19)
[2022-01-23] MEDS: LEVOTHYROXINE SODIUM 125 MCG TABLET PO SCH (06:02)
[2022-01-23 06:54] LABS: HCO3 ABG 34 mmol/L (19-24); Oxygen Saturation ABG 92.9 % (90-95); PCO2 ABG 44 mmHg (35-46); PO2 ABG 61 mmHg (80-95); pH ABG 7.49 (7.35-7.45)
[2022-01-23 06:57] LABS: Allen Test Pos (Pos)
[2022-01-23] MEDS: FORMOTEROL 20 MCG/2 ML VIAL NEB SCH ×2 (07:04→19:30)
[2022-01-23 07:28] LABS: BUN Creatinine Ratio 16.8 (10-20); Calcium 8.7 mg/dl (8.5-10.1); Creatinine Clr Calc Pharmacy 68.6 ml/min; Est GFR (African American) 60.4 ml/min; Est GFR (Non-African American) 52.1 ml/min; Magnesium 1.8 mg/dl (1.7-2.4); Potassium 4.3 mmol/L (3.5-5.1)
[2022-01-23 07:33] LABS: Hematocrit (blood only) 38.8 % (34.1-44.9); Hemoglobin 13.2 g/dl (12.0-16.0); Mean Corpuscular Hemoglobin 31.4 pg (25.0-34.0); Mean Corpuscular Volume 92.4 fL (80.0-100.0); Mean Platelet Volume 10.4 fL (9.4-12.3); Platelet Count 180 K/uL (130-400); RDW Coefficient of Variation 13.6 % (11.5-14.5); RDW Standard Deviation 45.7 fL (36.4-46.3); White Blood Count 8.77 K/ul (4.8-10.8)
--- NOTE | 2022-01-23 08:02 | Pulmonology Progress Note ---
Date of Service January 23, 2022 Assessment & Plan (1) Reactive airway disease: Asthma complication type: with acute exacerbation Asthma persistence: unspecified Asthma severity: unspecified severity Qualified Code(s): J45.901 - Unspecified asthma with (acute) exacerbation (2) Acute respiratory failure with hypoxia and hypercapnia: (3) Morbid obesity: Plan Chest x-ray 01/22/2022 personally reviewed: Portable film, good respiratory effort, bilateral costophrenic and cardiophrenic encircling, no clear lung infiltrate appreciated VBG 01/22/2022: pH 7.31/80/33 ABG on room air 01/23/2022: 7.49/44/61 -- Acute on chronic hypercapnic respiratory failure Likely secondary to MICHI/OHS Possibility of asthma is also there, expiratory wheeze could also be from dynamic collapse COVID-19 NAAT negative Continue with BiPAP nightly and as needed shortness of breath Will repeat ABG in the morning, if the patient is still hypercapnic and she might benefit from trilogy machine Do not over oxygenate the patient. Keep O2 saturation between 88-92% -- Morbid obesity with probable MICHI/OHS Bicarb 35 in the serum -- Lower extremity edema Likely from combination of diastolic dysfunction and MICHI/OHS 2D echo 01/23/2022: EF 60-65%, grade 2 diastolic dysfunction, RV normal in size and function Plan: I think patient will benefit from CPAP/BiPAP at home Doing a dedicated polysomnography would be the best way to go Keep O2 saturation between 88-92% Do not over oxygenate Decrease Solu-Medrol to daily Case was discussed with Dr. Murillo Please note the above document was generated using voice recognition software. It may contain grammatical, syntax or spelling errors.Any formal questions or concerns about the content, text or information contained within the body of this dictation should be directly addressed to the provider for clarification. Admission and Anticipated Discharge Date Admission Date: January 22, 2022 Subjective Patient seen and examined at bedside. No acute distress, no adverse events overnight. Patient used BiPAP only for an hour or so overnight. Says that she is feeling better when it comes to her breathing Denies any headache, no nausea, no vomiting Fair appetite No chest pain. Review of Systems Review of Systems: All systems reviewed & are unremarkable except as noted in Subjective Physical Exam Physical Exam: Constitutional: No acute distress HEENT: EOMI, PERRLA, thick short neck Respiratory system: Decreased air entry bilaterally, no rhonchi, mild crackles bilateral lower lobes, no wheeze CVS: S1-S2 positive, no murmurs or gallops Abdomen: Soft, nontender, nondistended, positive bowel sounds x4 Extremities: +2 pulses bilaterally radialis/ dorsalis pedis, no cyanosis, +2 pitting edema bilateral lower extremity Neuro: Awake alert oriented to self and place Psych: Normal mood and affect G/U: No [place] Skin: no rashes, warm and dry Lymphatic: no cervical or axillary lymphadenopathy Results & Data Results & Data ([facility]) Vital Signs (Past 12 Hours) Vital Signs Temp Pulse Pulse Resp BP Pulse Ox O2 Del Method 01/23/22 07:46 75 01/23/22 07:46 37.3 C 75 22 116/71 91 Room Air 01/23/22 07:07 74 19 90 Room Air 01/23/22 03:13 37.1 C 72 20 129/71 90 Room Air 01/23/22 01:19 01/22/22 23:09 37.4 C 75 20 128/68 95 BiPAP 01/22/22 22:39 71 25 H 95 O2 Flow Rate FiO2 01/23/22 07:46 01/23/22 07:46 01/23/22 07:07 21 01/23/22 03:13 01/23/22 01:19 21 01/22/22 23:09 2 01/22/22 22:39 2 Laboratory Results 01/23/22 06:45 01/23/22 06:45 PG Care Time/CCT Total # of Minutes Spent Total Time Spent with Patient: Total time spent is greater than 50% in coordination of care (as documented) at patient's floor/unit and/or counseling patient: Coding Level of Care Code 84475 Subseq Hosp Care Lvl 2 Diagnoses Reactive airway disease J45.901 Asthma complication type: with acute exacerbation Asthma persistence: unspecified Asthma severity: unspecified severity Acute respiratory failure with hypoxia and hypercapnia J96.01; J96.02 Morbid obesity E66.01
[2022-01-23] MEDS ORDERED: AZITHROMYCIN 250 MG in DEXTROSE 5% 250 ML IV SCH (09:00)
[2022-01-23] MEDS ORDERED: ENOXAPARIN INJ 30 MG/0.3 ML SYR SQ SCH (09:00)
[2022-01-23] MEDS: methylPREDNISolone 40 MG in SYRINGE 0 ML IV SCH (09:16)
[2022-01-23] MEDS: ARTIFICIAL TEARS OP SCH ×2 (09:18→20:21)
[2022-01-23] MEDS: CALCIUM CARBONATE 1250MG TAB PO SCH (09:19)
[2022-01-23] MEDS: buPROPion XL 300 MG TABCR PO SCH (09:19)
[2022-01-23] MEDS: QUEtiapine FUMARATE 25 MG TABLET PO SCH (09:19)
[2022-01-23] MEDS: DOCUSATE SODIUM 100 MG CAP PO SCH ×2 (09:19→20:21)
[2022-01-23] MEDS: DONEPEZIL HCL 10 MG TAB PO SCH (09:20)
[2022-01-23] MEDS: ENOXAPARIN INJ 40 MG/0.4 ML SYR SQ SCH (09:21)
--- NOTE | 2022-01-23 13:49 | Electrocardiogram Report ---
Test Reason : Blood Pressure : / mmHG Vent. Rate : 077 BPM Atrial Rate : 077 BPM P-R Int : 142 ms QRS Dur : 080 ms QT Int : 386 ms P-R-T Axes : 066 025 016 degrees QTc Int : 436 ms Normal sinus rhythm Normal ECG When compared with ECG of 22-JAN-2022 08:13, No significant change was found Confirmed by Evin Montgomery ([id number]) on 01/23/2022 1:49:23 PM Referred By: REFERRED SELF Confirmed By:Kei Montgomery
[2022-01-23] MEDS: FUROSEMIDE 20 MG TAB PO SCH (14:30)
--- NOTE | 2022-01-23 14:31 | Hospitalist Progress Note ---
Date of Service January 23, 2022 Assessment & Plan (1) Acute respiratory failure with hypoxia and hypercapnia: (2) Dementia: (3) Primary hypothyroidism: (4) Depression: (5) Down syndrome: Plan 51 year old female who presented 01/22 to the [facility] from her home at [place] with shortness of breath and hypotension. She is being managed for the following: Acute Respiratory failure with hypoxia and hypercapnia: Multi-factorial. 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 Could be underlying asthma, also can be contributed by her underlying CHF history. Admitting CXR negative; compared with 12/14 with vascular congestion. Admitting VBG with CO2 retention. Patient was found to be hypoxic prior to arrival which was the reason for admission. 07/03 echo with EF of 55%, 01/23 echo with EF of 60 to 65%, grade 2 diastolic dysfunction, no ventricular wall motion abnormalities noted. Possible cardiogenic in nature; received an IV dose of Lasix at admission, will continue her home dose of Lasix but daily (takes 20 mg every other day) Discussed with pulmonology, possible underlying MICHI/OHS given her Down syndrome, possibility of asthma. Patient will benefit from outpatient polysomnography, will need BiPAP 10/ upon discharge, will be started on Perforomist twice daily and budesonide 250 MCG twice daily from this admission. Patient will need pulmonary function test as an outpatient in 4 to 6 weeks. Patient received Rocephin and azithromycin on the day of admission, Pro-Adebayo was negative, continue to monitor off of antibiotic. Patient will need tapering dose of steroid and then budesonide started upon discharge. Down Syndrome: Pt lives at [place]; has 24/ nursing caregiver Follows bowel regimen every third day; They use MOM PO once. Dementia: Stable; on Aricept FAST score: all of 6 requires staff to anticipate most of her ADL needs Primary Hypothyroidism: Stable; TSH 12/31: 0.87; continue Levothyroxine Depression with Anxiety: Follows at [facility] with Psych caregiver notes audible and visual hallucinations Takes Seroquel and Buproprion; continue HLD: Stable; continue atorvastatin lipid panel in AM Disposition: PCP: Dr. Dumont Code: Full VTE Prophylaxis: Lovenox Disposition: PT/OT, CM to assist with DC planning. Likely DC in next 1 to 2 days. Patient will need BiPAP 10/6 upon discharge. Admission and Anticipated Discharge Date Admission Date: January 22, 2022 Subjective Patient seen and examined at bedside as a follow-up of acute respiratory failure with hypoxia and hypercapnia. Patient was sitting up in bed, on room air, reports eating okay, denies any shortness of breath or chest pain or cough, denies any new acute events overnight. Patient denies any feeling of heart racing or any acute problems with her bowel and bladder habits. Per RN, patient had has been able to maintain on room air, some dyspnea with exertion noted while going to the bathroom. Appetite has been okay. Overnight patient used BiPAP only for an hour. Patient reports she is feeling better. Physical Exam Physical Exam: GENERAL: Alert and oriented x3. NAD, on room air, obese class III. HEENT: No pallor, no icterus. Pupils equal, round and reactive to light. Oral mucosa moist. NECK: No JVD, no neck masses. HEART: S1 and S2 heard. Regular rate and rhythm. No murmur, no gallop. RESPIRATORY SYSTEM: Normal AP diameter. No accessory muscle use. + wheezing--has improved, no crackles. ABDOMEN: Soft, bowel sounds present, nontender, no distention. CENTRAL NERVOUS SYSTEM: No facial droop. Speech is clear. Obeys simple comma nds. Moves extremities. EXTREMITIES: 1+ edema, no erythema seen. Results & Data Results & Data ([facility]) Vital Signs (Past 12 Hours) Vital Signs Temp Pulse Pulse Resp BP Pulse Ox O2 Del Method 01/23/22 07:45 Room Air 01/23/22 12:00 37.0 C 76 22 142/78 H 91 Room Air 01/23/22 07:46 75 01/23/22 07:46 37.3 C 75 22 116/71 91 Room Air 01/23/22 07:07 74 19 90 Room Air 01/23/22 03:13 37.1 C 72 20 129/71 90 Room Air FiO2 01/23/22 07:45 01/23/22 12:00 01/23/22 07:46 01/23/22 07:46 01/23/22 07:07 21 01/23/22 03:13
[2022-01-23] MEDS: ATORVASTATIN 10 MG TAB PO SCH (20:22)
[2022-01-24] MEDS: LEVOTHYROXINE SODIUM 125 MCG TABLET PO SCH (05:36)
[2022-01-24 07:40] LABS: Hematocrit (blood only) 40.5 % (34.1-44.9); Hemoglobin 13.2 g/dl (12.0-16.0); Mean Corpuscular Hemoglobin 31.2 pg (25.0-34.0); Mean Corpuscular Hgb Conc 32.6 g/dL (32.0-36.0); Mean Corpuscular Volume 95.7 fL (80.0-100.0); Mean Platelet Volume 10.1 fL (9.4-12.3); Platelet Count 170 K/uL (130-400); RDW Standard Deviation 49.3 fL (36.4-46.3); Red Blood Count 4.23 M/uL (3.93-5.22); White Blood Count 8.33 K/ul (4.8-10.8)
[2022-01-24] MEDS: FORMOTEROL 20 MCG/2 ML VIAL NEB SCH (08:02)
[2022-01-24 08:13] LABS: BUN Creatinine Ratio 20.2 (10-20); Calcium 8.9 mg/dl (8.5-10.1); Creatinine Clr Calc Pharmacy 67.9 ml/min; Est GFR (African American) 60.4 ml/min; Est GFR (Non-African American) 52.1 ml/min; Phosphorus 3.8 mg/dl (2.5-4.9); Potassium 4.4 mmol/L (3.5-5.1)
[2022-01-24] MEDS: FUROSEMIDE 20 MG TAB PO SCH (08:54)
[2022-01-24] MEDS: CALCIUM CARBONATE 1250MG TAB PO SCH (08:54)
[2022-01-24] MEDS: DONEPEZIL HCL 10 MG TAB PO SCH (08:54)
[2022-01-24] MEDS: buPROPion XL 300 MG TABCR PO SCH (08:54)
[2022-01-24] MEDS: ARTIFICIAL TEARS OP SCH (08:54)
[2022-01-24] MEDS: DOCUSATE SODIUM 100 MG CAP PO SCH (08:54)
[2022-01-24] MEDS: QUEtiapine FUMARATE 25 MG TABLET PO SCH (08:54)
[2022-01-24] MEDS: ENOXAPARIN INJ 40 MG/0.4 ML SYR SQ SCH (08:55)
[2022-01-24] MEDS ORDERED: methylPREDNISolone 40 MG in SYRINGE 0 ML IV SCH (09:00)
[2022-01-24 10:16] LABS: Base Excess VBG 8.1 mEq/L; HCO3 VBG 35 mmol/L; Oxygen Saturation VBG 71.2 %; PCO2 VBG 58 mmHg (38-50); PO2 VBG 43 mmHg; pH VBG 7.39 (7.36-7.41)
--- NOTE | 2022-01-24 10:50 | Pulmonology Progress Note ---
Date of Service January 24, 2022 Assessment & Plan (1) Reactive airway disease: Asthma complication type: with acute exacerbation Asthma persistence: unspecified Asthma severity: unspecified severity Qualified Code(s): J45.901 - Unspecified asthma with (acute) exacerbation (2) Acute respiratory failure with hypoxia and hypercapnia: (3) Morbid obesity: Plan Chest x-ray 01/22/2022 personally reviewed: Portable film, good respiratory effort, bilateral costophrenic and cardiophrenic encircling, no clear lung infiltrate appreciated VBG 01/22/2022: pH 7.31/80/33 ABG on room air 01/23/2022: 7.49/44/61 -- Acute on chronic hypercapnic respiratory failure Likely secondary to MICHI/OHS Possibility of asthma is also there, expiratory wheeze could also be from dynamic collapse COVID-19 NAAT negative Continue with BiPAP nightly and as needed shortness of breath Will repeat ABG in the morning, if the patient is still hypercapnic and she might benefit from trilogy machine Do not over oxygenate the patient. 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 I do think patient will benefit from a dedicated sleep study but it will be difficult for patient to be compliant given her underlying mental challenges. Would recommend to step to check for oxygen on exertion prior to discharge No further recommendation from pulmonary perspective. We will sign off Please call directly with any questions Case was discussed with Dr. Murillo Please note the above document was generated using voice recognition software. It may contain grammatical, syntax or spelling errors.Any formal questions or concerns about the content, text or information contained within the body of this dictation should be directly addressed to the provider for clarification. Admission and Anticipated Discharge Date Admission Date: January 22, 2022 Subjective Seen and examined at bedside. No acute distress, no adverse events overnight. Patient was sitting on a chair at the time of examination She was saturating 93% on room air Said her breathing is better. Denies any chest pain, no headache, no nausea, no vomiting Review of Systems Review of Systems: All systems reviewed & are unremarkable except as noted in Subjective Physical Exam Physical Exam: Constitutional: No acute distress HEENT: EOMI, PERRLA, thick short neck Respiratory system: Decreased air entry bilaterally, no rhonchi, mild crackles bilateral lower lobes, no wheeze CVS: S1-S2 positive, no murmurs or gallops Abdomen: Soft, nontender, nondistended, positive bowel sounds x4 Extremities: +2 pulses bilaterally radialis/ dorsalis pedis, no cyanosis, +1 pitting edema bilateral lower extremity Neuro: Awake alert oriented to self and place Psych: Normal mood and affect G/U: No [place] Skin: no rashes, warm and dry Lymphatic: no cervical or axillary lymphadenopathy Results & Data Results & Data ([facility]) Vital Signs (Past 12 Hours) Vital Signs Temp Pulse Pulse Pulse Pulse Resp BP 01/24/22 09:00 66 01/24/22 09:00 01/24/22 08:00 36.9 C 18 L 66 18 120/59 L 01/24/22 08:02 66 16 01/24/22 03:45 66 01/24/22 02:54 36.5 C 60 18 148/81 H 01/24/22 01:04 66 01/23/22 23:00 36.8 C 69 20 137/75 Pulse Ox Pulse Ox O2 Del Method O2 Del Method O2 Flow Rate O2 Flow Rate 01/24/22 09:00 01/24/22 09:00 Room Air 01/24/22 08:00 97 01/24/22 08:02 93 Room Air 01/24/22 03:45 97 Nasal Cannula 2 01/24/22 02:54 98 Nasal Cannula 2 01/24/22 01:04 96 Nasal Cannula 2 01/23/22 23:00 97 Nasal Cannula 2 Laboratory Results 01/24/22 07:06 01/24/22 07:06 PG Care Time/CCT Total # of Minutes Spent Total Time Spent with Patient: Total time spent is greater than 50% in coordination of care (as documented) at patient's floor/unit and/or counseling patient: Coding Level of Care Code 60902 Subseq Hosp Care Lvl 2 Diagnoses Reactive airway disease J45.901 Asthma complication type: with acute exacerbation Asthma persistence: unspecified Asthma severity: unspecified severity Acute respiratory failure with hypoxia and hypercapnia J96.01; J96.02 Morbid obesity E66.01
--- NOTE | 2022-01-24 14:45 | Discharge Summary ---
Discharge Summary Date of Service January 24, 2022 Notes For Next Care Provider Patient will need PCP follow-up in 1 week time as a part of transition of care. Patient will likely need BMP. Patient is started on Perforomist and budesonide for likely reactive airway disease as patient presented with wheezing along with hypercapnia/hypoxia. Patient will need outpatient dedicated sleep study and will likely need BiPAP. BiPAP was denied by insurance while in hospital during discharge. Patient will also need pulmonary function test in 6 weeks time upon discharge. Patient is also discharged on a tapering dose of steroid. Patient advised to take her Lasix every other day, will need evaluation if she is retaining fluid and may need dose adjustment with Lasix. Medication Changes From Visit Perforomist and budesonide added, use twice a day as prescribed. Tapering dose of prednisone added, he will be done with prednisone doses in 5 days. Admission HPI Per Admitting Provider Ms. Wayne is a 51 year old female who presents to the [facility] from her home at [facility] with shortness of breath and hypotension. Per EMS she was noted to be hypoxic in the mid to high 80s and hypotensive with a SBP in the 90s. In route she was given a duoneb treatment. CXR was obtained and negative. She was recently in the ED on 12/14/2021 for similar symptoms and some vascular congestion was noted. Patient was placed on Bipap FiO2 21% and is tolerating well. Will admit patient and check ABG. She was given a dose of Methylprednisone and was started on Rocephin for possible bilateral lower extremity cellulitis. Patient has a PMH that includes Trisomy 21, HLD, primary HTN, hypothyroidism, dementia, and depression with anxiety. In the ED, the patient was sitting upright in her bed in no apparent distress. She is awake, alert, and oriented to herself, but all medical details obtained from her caregiver Marla in the room. Patient denies SOTO, dizziness, SOB and CP. Poor historian and not reliable with ROS. During my review of the chart, the patients most recent ECHO was 07/08 with an EF of 55%. Patient does not have a reportable pulmonary history with no report of asthma or COPD. No PFTs on file. Pt does have a rescue inhaler but has not used it recently. Consideration for her symptoms being cardiogenic in nature vs coexisting alveolar disease. Will consult pulmonary for further direction. Patient will be admitted under the hospitalist service for further evaluation and management. Please see A/P for further details. Admission Exam Per Admitting Provider Neuro: AAOx2, PERRLA, no aphagia, memory changes, CNII-XII grossly intact HEENT: head normocephalic, moist mucus membranes CV: S1/S2, (-) M/G/R, (-) edema, cap refill < 3 seconds Resp: On Bipap; FiO2 21%, PEEP5, Pinsp 8. Lungs posteriorly expiratory wheezes GI: Abdomen large S/NT/ND, hypoactive bowel sounds, (-) CVA tenderness Musculoskeletal: 4/5 B/L UE strength, 4/5 B/L LE strength. No gait disturbance; uses walker Skin: (-) rashes , (-) erythema. Psych: euthymic mood Principal Dx & Hospital Course #1 = Principal Diagnosis (1) Acute respiratory failure with hypoxia and hypercapnia: (2) Dementia: (3) Primary hypothyroidism: (4) Depression: (5) Down syndrome: Plan 51 year old female who presented 01/22 to the [facility] from her home at [facility] with shortness of breath and hypotension. She is being managed for the following: Acute Respiratory failure with hypoxia and hypercapnia: Multi-factorial. 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 Could be underlying asthma, also can be contributed by her underlying CHF history. Admitting CXR negative; compared with 12/14 with vascular congestion. Admitting VBG with CO2 retention. Patient was found to be hypoxic prior to arrival which was the reason for admission. 07/03 echo with EF of 55%, 01/23 echo with EF of 60 to 65%, grade 2 diastolic dysfunction, no ventricular wall motion abnormalities noted. Possible cardiogenic in nature; received an IV dose of Lasix at admission, fluid restriction of 1.8 L/day, patient advised to take Lasix every other day and to be evaluated by PCP in a week time on outpatient visit. Patient to get BMP in a week time. Discussed with pulmonology, possible underlying MICHI/OHS given her Down syndrome, possibility of asthma. Patient will benefit from outpatient polysomnography, will need BiPAP 01/22 upon discharge [insurance declined], started on Perforomist twice daily and budesonide 250 MCG twice daily from this admission. Patient will need pulmonary function test as an outpatient in 4 to 6 weeks.OK to dc from Pul POV. Patient will be discharged on tapering dose of steroid. Two-step test will be done prior to discharge. Down Syndrome: Pt lives at [facility]; has 24/7 nursing caregiver Follows bowel regimen every third day; They use MOM PO once. Dementia: Stable; on Aricept FAST score: all of 6 requires staff to anticipate most of her ADL needs Primary Hypothyroidism: Stable; TSH 12/31: 0.87; continue Levothyroxine Depression with Anxiety: Follows at [facility] with Psych caregiver notes audible and visual hallucinations Takes Seroquel and Buproprion; continue HLD: Stable; continue atorvastatin lipid panel in AM Disposition: PCP: Dr. Dumont Code: Full Patient being discharged to skilled facility with following instruction at the point of discharge: Follow-up with your primary care physician within a week time. You will likely be ordered blood test BMP in a week time by your PCP upon visit. Coordinate with your primary care physician for dedicated sleep study as an outpatient and also pulmonary function test in 6 weeks upon discharge. Because of the concern of sleep apnea and hypoventilation syndrome, he will need sleep study as an outpatient to establish the diagnosis. Because of the concern of reactive airway disease, you are being discharged on p .o. steroid tapering dose, and also on inhalers. Use them as prescribed. Your hypoxia could also be due to your heart failure component, continue to use your Lasix every other day and restrict fluid intake to 1.8 L/day. Take your medications as prescribed. Discharge Exam GENERAL: Alert and oriented x3. NAD, on room air, obese class III. HEENT: No pallor, no icterus. Pupils equal, round and reactive to light. Oral mucosa moist. NECK: No JVD, no neck masses. HEART: S1 and S2 heard. Regular rate and rhythm. No murmur, no gallop. RESPIRATORY SYSTEM: Normal AP diameter. No accessory muscle use. + wheezing--has improved, no crackles. ABDOMEN: Soft, bowel sounds present, nontender, no distention. CENTRAL NERVOUS SYSTEM: No facial droop. Speech is clear. Obeys simple commands. Moves extremities. EXTREMITIES: 1+ edema, no erythema seen. Updated Medication List Medication Instructions Recorded Confirmed Type atorvastatin 10 mg tablet 10 mg PO HS 01/18/19 01/22/22 History bupropion HCl 300 mg 24 hr tablet, 300 mg PO DAILY 01/18/19 01/22/22 History extended release calcium carbonate 600 mg calcium 600 mg PO DAILY 01/18/19 01/22/22 History (1,500 mg) tablet carboxymethylcellulose sodium 0.5 1 drp ophthalmic (eye) BID 01/18/19 01/22/22 History % eye drops in a dropperette donepezil 10 mg tablet 10 mg PO DAILY 01/18/19 01/22/22 History quetiapine 25 mg tablet 25 mg PO DAILY 01/18/19 01/22/22 History levothyroxine 100 mcg tablet 125 mcg PO DAILY 10/15/21 01/22/22 History docusate sodium 100 mg capsule 100 mg PO BID 01/22/22 01/22/22 History budesonide 0.25 mg/2 mL suspension 0.25 mg (2 mL) inhalation BID #60 01/24/22 Rx for nebulization mL formoterol fumarate 20 mcg/2 mL 20 mcg (2 mL) NEB BID #120 mL 01/24/22 Rx solution for nebulization (Perforomist) furosemide 20 mg tablet 20 mg PO Q OTHER DAY #15 tabs 01/24/22 Rx prednisone 20 mg tablet 20 mg PO DAILY 5 days #5 tabs 01/24/22 Rx Hospital Stay Data Consultations 01/22/22 10:54 ED Decision to Admit Stat 01/22/22 12:06 Consult Pulmonology Routine Pending Results Patient Have Any Pending Studies at Discharge: No Discharge Instructions Given to Patient (Per Discharging Provider) Follow-up with your primary care physician within a week time. You will likely be ordered blood test BMP in a week time by your PCP upon visit. Coordinate with your primary care physician for dedicated sleep study as an outpatient and also pulmonary function test in 6 weeks upon discharge. Because of the concern of sleep apnea and hypoventilation syndrome, he will need sleep study as an outpatient to establish the diagnosis. Because of the concern of reactive airway disease, you are being discharged on p.o. steroid tapering dose, and also on inhalers. Use them as prescribed. Your hypoxia could also be due to your heart failure component, continue to use your Lasix every other day and restrict fluid intake to 1.8 L/day. Take your medications as prescribed. Total Time Total Time Spent Total Time Spent (In Minutes): 45
== END 2022-01-24 15:52 | disposition home or self-care (01) | DRG 189 ==
LOC: ED 07:48 → 2S 11:11

== ENCOUNTER 2023-04-24 14:23 | Inpatient (IN) ==
--- OUTSIDE RECORDS SUMMARY | 2023-04-24 14:29 | External Medical Summary | Summary of Care ---
Author Name Unknown Organization [facility] Address [address] [place] [address] Phone [phone] Care Team Providers Care Plant Mechanic Name Role Phone Christine Dumont MD Primary Care Provider [phone] Reason for Referral * Evaluate & Treat - Unlimited Visits (Within 10 days (routine)) - Authorized Specialty Diagnoses / Procedures Referred By Mable quigley Referred To Contact Orthopaedic Surgery / Orthopedics Diagnoses Personal history of fall Acute pain of left knee Hip pain, left Christine Dumont MD [address] [place] [phone] Referral ID Status Reason Start Date Expiration Date Visits Requested Visits Authorized [id number] Authorized Specialty Services Required 3 [phone] Question Answer Referral Priority Within 10 days (routine) Where should this appointment be scheduled? [facility] What body part is the patient being seen for? Thigh/Knee - lat hip What condition is the patient being seen for? Sprain/Strain/Tear/Other Reason for Visit * Reason Comments Emergency Department Follow-Up The pt's aide stated that the pt is following up after a recent trip to the [facility] ED r/t altered mental status. 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 Devices (WHEEL CHAIR K1 BASIC DESK ARM) MISCIndications:Hip pain, bilateral Use as directed. Bilateral hip pain 1 Each 0 02/09/2017 Active Misc. Devices (WHEELCHAIR) MISCIndications:Guilherme ntia due to medical condition with behavioral disturbance (HCC),Down's syndrome,Hallucinati ons,Difficulty walking DX F02.81, Q90.9, R44.3 Please dispense one standard wheelchair with leg rests 1 Each 0 02/24/2017 Active Misc. Devices (BENJAMIN ROLLING WALKER BASIC) MISCIndications:Hip pain, right Rt HIP pain and imbalance 1 Each 0 09/15/2017 Active Restasis 0.05 % Ophthalmic Emulsion (cycloSPORINE) Instill 1 Drop into both eyes in the morning and 1 Drop before bedtime. affected eye(s). 0 04/29/2021 Active Sodium Fluoride 1.1 % Dental Cream (Denta 5000 Plus) Use a pea size amount as toothpaste twice daily 153 g 4 03/11/2022 Active Spacer/Aero-Holding Chambers DeviceIndications:Re active airway disease without complication, unspecified asthma severity, unspecified whether persistent Use with inhaler. 1 Each 0 03/23/2022 Active Medical Compression StockingsIndications :Edema of both legs Please put compression stockings on in the morning and remove in the evening. 2 Each 0 04/08/2022 Active Budesonide-Formotero l Fumarate 160-4.5 MCG/ACT Inhalation Aerosol (Symbicort) Inhale 2 Puffs by mouth in the morning and 2 Puffs before bedtime. 10.2 g 12 04/22/2022 Active Donepezil HCl 10 MG Oral Tablet (Aricept)Indications :Memory change TAKE ONE TABLET BY MOUTH DAILY (5PM) 31 Tablet 11 06/25/2022 Active Ciclopirox 0.77 % External Gel apply small amount to affected webspaces twice daily as needed. let air dry prior to sock/shoe application. 0 08/19/2022 Active Debrox 6.5 % Otic Solution (Carbamide Peroxide)Indications :Bilateral impacted cerumen Instill 5 drops twice daily To both ear canals for 4 days once a month , lay on side for 5 min after placing drops. 15 mL 11 08/25/2022 Active Nyamyc [id number] UNIT/GM External Powder (Nystatin)Indication s:Candidal dermatitis Apply topically to affected area 2 times a day. Apply topically to dermatitis around breasts and abdominal folds as needed. 60 g 1 09/02/2022 Active Calcium 600 1500 (600 Ca) MG Oral Tablet (Calcium Carbonate) TAKE 1 TABLET BY MOUTH DAILY 31 Tablet 09/22/2022 Active Albuterol Sulfate HFA 108 (90 Base) MCG/ACT Inhalation Aerosol Solution INHALE 2 PUFFS BY MOUTH EVERY 4 HOURS NEEDED FOR COUGH, SHORTNESS OF BREATH 18 g 1 10/29/2022 Active Famotidine 20 MG Oral Tablet (Pepcid)Indications: Dysphagia, unspecified type TAKE 1 TABLET BY MOUTH DAILY 31 Tablet 5 11/21/2022 Active Docusate Sodium 100 MG Oral Capsule (Stool Softener)Indications :Constipation, unspecified constipation type TAKE 1 CAPSULE BY MOUTH TWICE DAILY( 8am.8pm) 62 Capsule 11/23/2022 Active Atorvastatin Calcium 40 MG Oral Tablet (Lipitor)Indications :Dyslipidemia, goal LDL below 100 TAKE 1 TABLET BY MOUTH ONCE DAILY 31 Tablet 5 11/21/2022 Active Vitamin D (Cholecalciferol) 25 MCG (1000 UT) Oral Capsule Take 1 Capsule by mouth daily. 30 Capsule 01/14/2023 Active Levothyroxine Sodium 137 MCG Oral TabletIndications:Hy pothyroidism due to acquired atrophy of thyroid TAKE 1 TABLET BY MOUTH ONCE DAILY AT LEAST 30 MINUTES PRIOR TO BREAKFAST OR OTHER MEDS FOR HYPERTHYROIDISM. 31 Tablet 11 02/23/2023 Active MEDICAL INSTRUCTIONS Okay for Stacey to receive flu vaccine now and covid booster in 4-6 weeks. 1 Each 1 02/25/2023 Active Desitin 40 % External Paste (Zinc Oxide)Indications:Sk in breakdown APPLY A THIN LAYER TO BUTTOCKS TWICE DAILY TO PREVENT BREAKDOWN, NO STOP DATE 113 g 5 03/04/2023 Active Furosemide 20 MG Oral Tablet (Lasix)Indications:R espiratory failure with hypoxia and hypercapnia, unspecified chronicity (HCC),Grade II diastolic dysfunction,Obesity hypoventilation syndrome (HCC) Take 1 Tablet by mouth every other day. AND may take extra 20 mg tablet daily up to 3 days for weight gain more than 3 pounds in 24 hours or more than 5 pounds in 48 hours 30 Tablet 11 03/04/2023 Active traZODone HCl 50 MG Oral Tablet (Desyrel) Take 2 Tablets by mouth at bedtime. 0 03/24/2023 Active buPROPion HCl ER (SR) 200 MG Oral Tablet Extended Release 12 Hour (Wellbutrin SR) Take 1 Tablet by mouth in the morning. In the morning.. 0 03/24/2023 Active QUEtiapine Fumarate 100 MG Oral Tablet (SEROquel) Take 1 Tablet by mouth in the morning and 1 Tablet before bedtime. 0 03/23/2023 Active RSVPreF3 Vac Recomb Adjuvanted 120 MCG/0.5ML Intramuscular Suspension ReconstitutedIndicat ions:Need for RSV vaccination 0.5ml one dose 1 Each 0 03/30/2023 Active Acetaminophen 500 MG Oral Tablet (Tylenol)Indications :Personal history of fall,Acute pain of left knee,Hip pain, left TWO pills twice a day x 5 days from 04/05/2023 then 1 tab every 4 hrs as needed for pain/fever 30 Tablet 0 04/05/2023 Active Acetaminophen 500 MG Oral Tablet (Tylenol)Indications :Personal history of fall,Acute pain of left knee one pill twice a day x 5 days then 1 tab every 4 hrs as needed for pain/fever 0 03/30/2023 04/05/20 23 Discontinu ed(Refill) documented as of this encounter (statuses as of 04/09/2023) Active Problems Problem Noted Date Diagnosed Date Dyslipidemia 08/26/2022 Super obese 08/26/2022 Grade II diastolic dysfunction 06/26/2022 Obesity hypoventilation syndrome 06/26/2022 MICHI (obstructive sleep apnea) 06/26/2022 Reactive airway disease without complication 01/2023 Physician orders for life-chavira staining treatment (POLST) form indicates patient wish for full code resuscitation status 01/30/2022 Chronic kidney disease, stage 3b 08/27/2020 Overview: Per CKD protocol Renal osteodystrophy 06/03/2018 Dementia due to medical cond ition with behavioral disturbance 06/23/2016 Hypothyroidism due to acquired atrophy of thyroi d 06/23/2016 Dyslipidemia, goal LDL below 100 04/04/2009 Overview: Per Lipid Taxonomy. Depression with anxiety 02/17/2005 Overview: [facility] by [facility]. Down's syndrome 07/29/2004 documented as of this encounter (statuses as of 04/09/2023) Resolved Problems Problem Noted Date Diagnosed Date Resolved Date Body mass index (BMI) of 45. 0 to 49.9 in adult 07/27/2022 08/26/2022 Overview: Per Obesity protocol - Per Obesity protocol - Per Obesity protocol - Per Obesity protocol - Per Obesity protocol - Nocturnal hypoxia 06/26/2022 08/26/2022 Body mass index (BMI) of 50. 0 to 59.9 in adult 04/27/2022 07/30/2022 Overview: Per Obesity protocol - Per Obesity protocol - Per Obesity protocol - Per Obesity protocol - Body mass index (BMI) of 45. 0 to 49.9 in adult 03/02/2022 04/30/2022 Overview: Per Obesity protocol - Per Obesity protocol - Per Obesity protocol - Mass of right lung 08/29/2021 Overview: 09/07--cxr-New right perihilar mass measuring up to 2.[address] is recommended for further evaluation. Body mass index (BMI) of 50. 0 to 59.9 in adult 07/28/2021 03/05/2022 Overview: Per Obesity protocol - Per Obesity protocol - Body mass index (BMI) of 45. 0 to 49.9 in adult 02/27/2019 07/31/2021 Overview: Per Obesity protocol - Body mass index (BMI) of 40. 0 to 44.9 in adult 02/28/2018 03/03/2019 Overview: Per Obesity protocol #1 Obesity, Class I, BMI 30.0-3 4.9 (see actual BMI) 02/21/2013 03/04/2018 Overview: Per Obesity protocol #1 Dyslipidemia, goal LDL below 160 12/12/2008 04/04/2009 Overview: Per Lipid Taxonomy. KIDNEY DZ,CHRONIC (GFR>30-59) STAGE III 06/21/2007 08/29/2020 Overview: Added per CKD clinical protocol 1 Allergic rhinitis 07/30/2004 08/26/2022 Hallucinations 07/29/2004 04/29/2021 ABN LIVER FUNCTION STUDY 07/29/200402/2022 documented as of this encounter (statuses as of 04/09/2023) Immunizations Name Administration Dates Next Due COVID-19 mRNA, LNP-s, No Pre serve, 2-Dose Series (Moderna) 06/14/2020,05/10/2020 COVID-19, mRNA, LNP-s, PF, B ooster, 100mcg/0.5mg (Moderna) 09/26/2021,04/07/2021 Covid-19, Mrna, Lnp-s, Pf, B ivalent, 50 Mcg, IM, 12 yrs and above (Moderna) 03/06/2022 H1N1 2009 Influenza, IM 03/19/2009 Hepatitis B, 20+ yrs 03/30/2023,10/26/2022,09/22 PPD 09/22/2022, 2,04/29/2020,04/25,05/10/2018,07/20/2017,06/23/2016 ,07/15/2015,07/11/2013,07/21/2011,07/19,08/06/2008,07/27/2006, 5 Pneumococcal Conjugate Vacci ne, 20-valent ([id number]) 01/30/2022 Seasonal Influenza Virus Vac cine, Unspecified Formulation 01/31/2021,01/08/2020,01/25/2018,12/29,01/15/2016,02/14/2015,02/09/2013 ,02/11/2012,02/18/2011,01/11/2010,10/2008,02/08/2008,03/31/2006, 5 Seasonal Influenza, PF, 6 M & above, IM , (FluLaval or Fluzone) 03/04/2023,01/30/2022,01/31/2021,01/07,01/25/2018 Seasonal Influenza, Quadriva lent, No Preserve, IM 12/29/2016,01/15/2016,02/14/2015 Seasonal Influenza, Quadriva lent, No Preserve, Mdck 01/17/2019 Seasonal Influenza, Split, I IV3, With Preserve, Inj 02/03/2014,02/09/2013,02/11/2012,02/18,01/11/2010,01/23/2009,02/08/2008 ,03/31/2006,02/17/2005 02/03/2015 TDAP (age 10 and older)(Boostrix) 07/11/2013 Tetanus Toxid Adsorbed 04/19/1993 Zoster Vaccine Recombinant (Shingrix) 09/18/2020,04/29/2020 documented as of this encounter Social History Tobacco Use Types Packs/Day Years Used Date Smoking Tobacco: Never Smokeless Tobacco: Never Alcohol Use Standard Drinks/Week Comments No 0 (1 standard drink = 0.6 oz pur e alcohol) PHQ-2 Answer Date Recorded PHQ Adult Total Score 0 09/22/2022 Hunger Vital Sign Answer Date Recorded Within the past 12 months, y ou worried that your food would run out before you got the money to buy more. Never true 09/23/19 23 Within the past 12 months, t he food you bought just didn't last and you didn't have money to get more. Never true 09/22/2022 Sex and Gender Information Value Date Recorded Sex Assigned at Not on file Gender Identity Not on file Sexual Orientation Not on file Job Start Date Occupation Industry Not on file Not on file Not on file documented as of this encounter Last Filed Vital Signs Vital Sign Reading Time Taken Comments Blood Pressure 104/60 04/05/2023 1:52 PM EST Pulse 60 04/05/2023 1:52 PM EST Temperature 35.4 C (95.7 F) 04/05/2023 1:52 PM ES T Respiratory Rate - - Oxygen Saturation - - Inhaled Oxygen Concentration - - Weight 105.6 kg (232 lb 14.4 oz) 04/05/2023 1:52 PM EST Height - - Body Mass Index 50.4 07/31/2022 12:10 PM EDT documented in this encounter Progress Notes * Christine Dumont MD - 04/05/2023 2:01 PM EST SUBJECTIVE: Stacey Wayne is a 52 year old female. Chief Complaint Patient presents with Emergency Department Follow-Up The pt's aide stated that the pt is following up after a recent trip to the [facility] ED r/t altered mental status. HPI: Patient with a problem list as below presents today accompanied by her caregiver for ER follow-up from 03/30/23 I saw her ER f/u from 03/26/2023 on , seen status post fall injuring her left knee and had struck her head. Had some tenderness over the anterior left knee no bruising. CT cervical spine-no acute fracture or subluxation, straightening of cervical lordosis, multilevel cervical spondylosis and degenerative disc disease. CT head-no acute findings, sinuses clear. X-ray of the pelvis, left hip, left knee negative per ER report, final report awaited. No medication changes at discharge -since the fall she has been very afraid to walk, she does good some days but with certain other caregiver she does not walk, 1 time she sat down and they had to call an ambulance to get her up. Also had some medication changes per her psychiatrist due to increase in hallucinations. Wellbutrin decreased from 300 mg XL to 200 mg ER, Seroquel increased to 100 mg twice a day from 50/100 and trazodone 50 mg added at night, she remains somnolent during the day. Is not scheduled for CPAP titration at the [facility] till 05/27/23 -seen in the ED 03/30/2023 as caregiver felt there was a lapse in her consciousness. ED labs-WBC 4.3(nml LL in our lab , at er 4.8), rest CBC normal, normal CMP except BUN/CR 29/1.4, bicarb 34, mg 2, UA concentrated and a poor sample. EKG normal sinus rhythm no acute findings. Knee x-ray was normal. -patient had received her hep B 3rd dose on the and she also got COVID booster that evening atP. By the time patient was in the ER she was following all commands, smiling and was interactive. --has not been very ambulatory, complains of pain in the knee as well as on the lateral hip, they are unsure if she got Tylenol on a regular basis, they have been icing the area, will increase Tylenol to 2 tablets twice daily for 5 days continue icing the area 2 to 3 times a day, refer to ortho forevaluation. She was also referred to physical therapy, she is unsure when she is scheduled for. --labs 03/23/23-stable BMP with a BUN/CR 20/1.4, bicarb 26, A1c 5.5%, FBS 96, lipids-189/93/76/94 Patient is a pleasant female accompanied by her vehicle modification technician/s from the [facility]. Down syndrome, depression with anxiety, dementia with behavioral disturbance, history of auditory and visual hallucinations f/b Psychiatry at [facility] CKD 3 without hypertension, renal osteodystrophy followed by Nephrology. Dyslipidemia on [id number], inc 20mg 05/11, hypothyroidism, morbid obesity History of allergic rhinitis, constipation., intermittent intertrigo under breast, dry eyes 08/2017- Mild hip arthritis and degenerative changes of the spine on x-ray of the hip 03/08- MBS- no aspiration.;;Recommended thin liquids and regular diet 02/07--diagnosis of diastolic LV dysfunction, obesity hypoventilation with hypoxia and hypercapnia,possible RAD 03/31/22--ALYSON-nml Since last visit saw Nephrology 03/04/23, was advised to attempt to decrease Lasix to 20 mg every other day and may take extra 20 mg daily up to 3 days if weight gain more than 3 lb in 24 hours or more than 5 lb in 48 hours Saw Cardiology 03/22/2023, no med changes were done, fu 1 yrs -per caregiver they have not had to do any extra doses of Lasix. Wt Readings from Last 6 Encounters: 04/05/23 105.6 kg (232 lb 14.4 oz) 03/30/23 107.7 kg (237 lb 6.4 oz) 03/22/23 107.5 kg (237 lb) 03/04/23 106.9 kg (235 lb 9.6 oz) 12/28/22 108.7 kg (239 lb 9.6 oz) 12/09/22 106.5 kg (234 lb 11.2 oz) BP Readings from Last 6 Encounters: 04/05/23 104/60 03/30/23 112/72 03/22/23 100/62 03/04/23 90/52 12/28/22 112/64 12/09/22 102/62 Had covid inf 02/08 Had covid booster , RSV vaccine. Completed Hep B vaccine series 03/30/23 Immunization History Administered Date(s) Administered COVID-19 mRNA, LNP-s, No Preserve, 2-Dose Series (Moderna) 05/10/2020, 06/14/2020 COVID-19, mRNA, LNP-s, PF, Booster, 100mcg/0.5mg (Moderna) 04/07/2021, 09/26/2021 Covid-19, Mrna, Lnp-s, Pf, Bivalent, 50 Mcg, IM, 12 yrs and above (Moderna) 03/06/2022 H1N1 2009 Influenza, IM 03/19/2009 Hepatitis B, 20+ yrs 09/22/2022, 10/26/2022, 03/30/2023 PPD 07/25/2004, 07/27/2006, 08/06/2008, 08/08/2009, 07/21/2011, 07/11/2013, 07/15/2015, 06/23/2016,07/20/2017, 05/10/2018, 04/25/2019, 04/29/2020, 09/19/2021, 09/22/2022 Pneumococcal Conjugate Vaccine, 20-valent ([id number]) 01/30/2022 Seasonal Influenza Virus Vaccine, Unspecified Formulation 02/17/2005, 03/31/2006, 02/08/2008, 01/23/2009, 01/11/2010, 02/18/2011, 02/11/2012, 02/09/2013, 02/14/2015, 01/15/2016, 12/29/2016, 01/25/2018, 01/08/2020, 01/31/2021 Seasonal Influenza, PF, 6 M & above, IM , (FluLaval or Fluzone) 01/25/2018, 01/08/2020, 01/31/2021, 01/30/2022, 03/04/2023 Seasonal Influenza, Quadrivalent, No Preserve, IM 02/14/2015, 01/15/2016, 12/29/2016 Seasonal Influenza, Quadrivalent, No Preserve, Mdck 01/17/2019 Seasonal Influenza, Split, IIV3, With Preserve, Inj 02/17/2005, 03/31/2006, 02/08/2008, 01/23/2009,01/11/2010, 02/18/2011, 02/11/2012, 02/09/2013, 02/03/2014 TDAP (age 10 and older)(Boostrix) 07/11/2013 Tetanus Toxid Adsorbed 04/19/1993 Zoster Vaccine Recombinant (Shingrix) 04/29/2020, 09/18/2020 Patient Active Problem List Diagnosis Code Down's syndrome Q90.9 Depression with anxiety F41.8 Dyslipidemia, goal LDL below 100 E78.5 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 Devices (WHEEL CHAIR K1 BASIC DESK ARM) MISC Use as directed. Bilateral hip pain 1 Each 0 [facility] [facility] DX F02.81, Q90.9, R44.3 Please dispense one standard wheelchair with leg rests 1 Each 0 Misc. Devices (BENJAMIN ROLLING WALKER BASIC) [facility] Rt HIP pain and imbalance 1 Each 0 Restasis 0.05 % Ophthalmic Emulsion (cycloSPORINE) Instill 1 Drop into both eyes in the morning and1 Drop before bedtime. affected eye(s). Sodium Fluoride 1.1 % Dental Cream (Denta 5000 Plus) Use a pea size amount as toothpaste twice daily 153 g 4 Spacer/Aero-Holding Chambers Device Use with inhaler. 1 Each 0 Medical Compression Stockings Please put compression stockings on in the morning and remove in the evening. 2 Each 0 Budesonide-Formoterol Fumarate 160-4.5 MCG/ACT Inhalation Aerosol (Symbicort) Inhale 2 Puffs by mouth in the morning and 2 Puffs before bedtime. 10.2 g 12 Donepezil HCl 10 MG Oral Tablet (Aricept) TAKE ONE TABLET BY MOUTH DAILY (5PM) 31 Tablet 11 Ciclopirox 0.77 % External Gel apply small amount to affected webspaces twice daily as needed. let air dry prior to sock/shoe application. Debrox 6.5 % Otic Solution (Carbamide Peroxide) Instill 5 drops twice daily To both ear canals for 4 days once a month , lay on side for 5 min after placing drops. 15 mL 11 Nyamyc [id number] UNIT/GM External Powder (Nystatin) Apply topically to affected area 2 times a day. Apply topically to dermatitis around breasts and abdominal folds as needed. 60 g 1 Calcium 600 1500 (600 Ca) MG Oral Tablet (Calcium Carbonate) TAKE 1 TABLET BY MOUTH DAILY 31 [id number] Albuterol Sulfate HFA 108 (90 Base) MCG/ACT Inhalation Aerosol Solution INHALE 2 PUFFS BY MOUTH EVERY 4 HOURS NEEDED FOR COUGH, SHORTNESS OF BREATH 18 g 1 Famotidine 20 MG Oral Tablet (Pepcid) TAKE 1 TABLET BY MOUTH DAILY 31 Tablet 5 Docusate Sodium 100 MG Oral Capsule (Stool Softener) TAKE 1 CAPSULE BY MOUTH TWICE DAILY( 8am.8pm) 62 Capsule 5 Atorvastatin Calcium 40 MG Oral Tablet (Lipitor) TAKE 1 TABLET BY MOUTH ONCE DAILY 31 Tablet 5 Vitamin D (Cholecalciferol) 25 MCG (1000 UT) Oral Capsule Take 1 Capsule by mouth daily. 30 Capsule5 Levothyroxine Sodium 137 MCG Oral Tablet TAKE 1 TABLET BY MOUTH ONCE DAILY AT LEAST 30 MINUTES PRIOR TO BREAKFAST OR OTHER MEDS FOR HYPERTHYROIDISM. 31 Tablet 11 MEDICAL INSTRUCTIONS Okay for Stacey to receive flu vaccine now and covid booster in 4-6 weeks. 1Each 1 Desitin 40 % External Paste (Zinc Oxide) APPLY A THIN LAYER TO BUTTOCKS TWICE DAILY TO PREVENT BREAKDOWN, NO STOP DATE 113 g 5 Furosemide 20 MG Oral Tablet (Lasix) Take 1 Tablet by mouth every other day. AND may take extra 20 mg tablet daily up to 3 days for weight gain more than 3 pounds in 24 hours or more than 5 pounds in48 hours 30 Tablet 11 traZODone HCl 50 MG Oral Tablet (Desyrel) Take 2 Tablets by mouth at bedtime. buPROPion HCl ER (SR) 200 MG Oral Tablet Extended Release 12 Hour (Wellbutrin SR) Take 1 Tablet by mouth in the morning. In the morning.. QUEtiapine Fumarate 100 MG Oral Tablet (SEROquel) Take 1 Tablet by mouth in the morning and 1 Tablet before bedtime. Acetaminophen 500 MG Oral Tablet (Tylenol) one pill twice a day x 5 days then 1 tab every 4 hrs as needed for pain/fever RSVPreF3 Vac Recomb Adjuvanted 120 MCG/0.5ML Intramuscular Suspension Reconstituted 0.5ml one dose 1 Each 0 No current facility-administered medications for this visit. Review of patient's allergies indicates: No Known Allergies OBJECTIVE: BP 104/60 | Pulse 60 | Temp 35.4 C (95.7 F) | Wt 105.6 kg (232 lb 14.4 oz) | LMP (LMP Unknown) | BMI 50.40 kg/m | BSA 2.06 m PHYSICAL EXAM: General: alert, healthy, no distress, well developed Neck: supple, short, no adenopathy, thyroid Not enlarged without nodularity Heart: regular rhythm and rate,No murmurs. Lungs: lungs clear to auscultation Extremities: no edema Left knee--no bruise, good ROM,TTP left medial knee, is able to stand but refuses to come up onto exam table Gait--with support ambulates few steps, is afraid to walk ASSESSMENT/PLAN: Excessive somnolence disorder (Primary) Obesity hypoventilation syndrome (HCC) Down's syndrome MICHI (obstructive sleep apnea) ---try to sleep on Right side with long pillow on sides and try to keep HOB 30 deg with wedge pillow. --await cpap titration in may, check to see if she can get on a cancellation list Personal history of fall - ORTHOPAEDICS REFERRAL OP - Acetaminophen 500 MG Oral Tablet (Tylenol); TWO pills twice a day x 5 days from 04/05/2023 then 1tab every 4 hrs as needed for pain/fever Acute pain of left knee - ORTHOPAEDICS REFERRAL OP - Acetaminophen 500 MG Oral Tablet (Tylenol); TWO pills twice a day x 5 days from 04/05/2023 then 1tab every 4 hrs as needed for pain/fever Hip pain, left - ORTHOPAEDICS REFERRAL OP - Acetaminophen 500 MG Oral Tablet (Tylenol); TWO pills twice a day x 5 days from 04/05/2023 then 1tab every 4 hrs as needed for pain/fever Apply cold compress to affected area 2-3 timed /d 15 min each for 5 days, for symptomatic relief. 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 X-ray reports received CT head and CT C-spine negative for acute findings, multilevel cervical spondylosis and degenerative disc disease with straightening of cervical lordosis X-ray left knee-questionable lateral subluxation of patella on AP view likely positional, x-ray left hip-no abnormalities Seen by ortho at 04/07/2023-, had rpt xrays knee-rec to cyt cons Rx (This note was completed using the dictation program Fluency Direct. As such, there may be misspellings, word substitutions, or other variations that should not change the essence of the clinical content of this encounter note. If there is need for further clarification, please direct questions to the provider listed above.) Patient and / caregiver verbalize understanding of above instructions and agrees with plan of care. Christine Dumont MD 04/05/2023 documented in this encounter Nursing Notes * Clapper, Ayaz Florentin, DIGITAL ENGINEER - 04/05/2023 1:52 PM EST Chief Complaint Patient presents with Emergency Department Follow-Up The pt's aide stated that the pt is following up after a recent trip to the [facility] ED r/t altered mental status. documented in this encounter Plan of Treatment Upcoming Encounters Date Type Department Care Team (Late st Contact Info) Description 04/27/2023 3:15 PM EST Office Visit Dental Hygiene, [place] [address], [place] [id number] Reny Ruffin, [facility] [address] [place] [address] 05/05/2023 1:45 PM EST Office Visit Orthopaedics [facility] [address] [facility] [place] [address] Ayaz Butler PA-C [address] [facility] [place] [address] 06/22/2023 7:40 AM EST Laboratory Laboratory, [place] [address] [place] [id number] [place] [address] [place] [address] 06/28/2023 10:00 AM EDT Office Visit General Internal Medicine [facility] [place] [address] [place] [address] Christine Dumont MD [address] [facility] [place] [address] 09/14/2023 3:00 PM EDT Office Visit Nephrology, [facility] [address] [place] [address] Katlin Berry PA-C [address] [place] [address] 09/24/2023 2:40 PM EDT Office Visit General Internal Medicine [facility] [place] [address] [facility] [place] [address] Christine Dumont MD [address] [facility] [place] [address] 10/26/2023 10:45 AM EDT Imaging Radiology [facility] [address] [facility] [place] [address] Scheduled Referrals Name Type Priority Associated Diagnoses Order Schedule ORTHOPAEDICS REFERRAL OP Referral Within 10 days (routine) Personal history of fall Acute pain of left knee Hip pain, left Ordered: 04/05/2023 Health Maintenance Due Date Last Done Comments HIV Screening 06/19/1983 COVID-19 Vaccine ( season) 2022 03/06/2022, 09/26/2021, 04/07/2021, Additional history exists PAP SMEAR-EVERY 5 YRS,AGES 21-100 03/15/2023 03/15/2018, 08/16/2014, 06/17/2010, Additional history exists DTaP,Tdap,and Td Vaccines (2 - Td or Tdap) 07/12/2023 07/11/2013 GFR 09/22/2023 03/23/2023, 070 10/2022, 07/31/2022, Additional history exists Depression Screening 09/23/2023 09/22/2022 Mammogram 10/15/2023 10/14/2022, 09/18, 10/13/2021, Additional history exists CKD HGB USE SMARTSET 81150 10/24/202310/23, 10/23/2022, 03/27/2022, Additional history exists CKD PHOS USE SMARTSET 70687 10/24/2023 07/0 10/2022, 03/27/2022, 12/31/2021, Additional history exists TSH 10/24/2023 10/23/2022, 08/17, 06/24/2022, Additional history exists Albumin/Creatinine Ratio 03/06/2024 023, 12/31/2021, 05/01/2021, Additional history exists Diabetes Screening 03/23/2026 03/23/2023, 1 05/24/2022, 03/23/2023, Additional history exists Lipid Panel 03/23/2028 03/23/2023, 070 10/2022, 06/24/2022, Additional history exists Pap Smear Discontinued 03/15/2018, 07/20, 06/22/2011 (Done elsewhere), Additional history exists Cologuard Discontinued 08/02/2018 Colorectal Cancer Screening Discontinued Zoster Vaccines Completed 09/18/2020, 04/29/2020 Pneumococcal Vaccine: Pediatrics (0 to 5 Years) and At-Risk Patients (6 to 64 Years) Completed 01/30/2022 Influenza Vaccine (FLU shot) Completed 03/04/2023, 01/30/2022, 01/31/2021, Additional history exists Hepatitis B Completed 03/30/2023, 10/17, 09/22/2022 Colonoscopy Discontinued Fecal Occult Blood Test Discontinued GARDASIL-HPV IMMUNIZATION SERIES Aged Out No longer eligible based on patient's age to complete this topic MENINGOCOCCAL (MENACTRA/MENVEO) Aged Out No longer eligible based on patient's age to complete this topic Sigmoidoscopy Discontinued documented as of this encounter Medical Devices Not on filedocumented as of this encounter Visit Diagnoses Diagnosis Excessive somnolence disorder- Primary Hypersomnia, unspecified Obesity hypoventilation syndrome (HCC) Obesity hypoventilation syndrome Down's syndrome MICHI (obstructive sleep apnea) Obstructive sleep apnea (adult) (pediatric) Personal history of fall Acute pain of left knee Hip pain, left Pain in joint, pelvic region and thigh Hallucination, visual Psychophysical visual disturbances 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
--- OUTSIDE RECORDS SUMMARY | 2023-04-24 14:29 | External Medical Summary | Summary of Care ---
Author Name Unknown Organization [facility] Address [address] [place] [address] Phone [phone] Care Team Providers Care Open Hearth Melter Name Role Phone Christine Dumont MD Primary Care Provider [phone] Reason for Referral * Evaluate & Treat - Unlimited Visits (Within 10 days (routine)) - Authorized Specialty Diagnoses / Procedures Referred By Mable quigley Referred To Contact Physical Therapy / Physical Medicine And Rehab Diagnoses Left knee injury, initial encounter Ayaz Butler PA-C [address] [facility] [address] Referral ID Status Reason Start Date Expiration Date Visits Requested Visits Authorized [id number] Authorized Specialty Services Required [phone] Question Answer Referral Priority Within 10 days (routine) Where should this appointment be scheduled? [facility] Comments Probable ligamentous injury left knee underlying osteoarthritis Reason for Visit * Reason Comments NEW PATIENT Left knee injury 11/2022 * Evaluate & Treat - Unlimited Visits (Within 10 days (routine)) - Authorized Specialty Diagnoses / Procedures Referred By Mable quigley Referred To Contact Orthopaedic Surgery / Orthopedics Diagnoses Personal history of fall Acute pain of left knee Hip pain, left Christine Dumont MD [address] [facility] [place] [address] Referral ID Status Reason Start Date Expiration Date Visits Requested Visits Authorized [id number] Authorized Specialty Services Required [phone] Encounter Details Date Type Department Care Team (Late st Contact Info) Description 04/07/2023 2:00 PM EST Office Visit Orthopaedics [facility] [address] [place] [address] Ayaz Butler PA-C [address] [place] [address] Left knee injury, initial encounter* Allergies No known active allergiesdocumented as of this encounter (statuses as of 04/07/2023) Medications Medication Sig Dispensed Refills Start Date End Date Status Misc. Devices (WHEEL CHAIR K1 BASIC DESK ARM) MISCIndications:Hip pain, bilateral Use as directed. Bilateral hip pain 1 Each 0 02/09/2017 Active Misc. Devices (WHEELCHAIR) MISCIndications:Demen tia due to medical condition with behavioral disturbance (HCC),Down's syndrome,Hallucinatio ns,Difficulty walking DX F02.81, Q90.9, R44.3 Please dispense [...] 153 g 4 03/11/2022 Active Spacer/Aero-Holding Chambers DeviceIndications:[place] ctive airway disease without complication, unspecified asthma severity, unspecified whether persistent Use with inhaler. 1 Each 0 03/23/2022 Active Medical Compression StockingsIndications: Edema of both legs Please put compression stockings on in the morning and remove in the evening. 2 Each 0 04/08/2022 Active Budesonide-Formoterol Fumarate 160-4.5 MCG/ACT Inhalation Aerosol (Symbicort) Inhale 2 Puffs by mouth in the morning and 2 Puffs before bedtime. 10.2 g 12 04/22/2022 Active Donepezil HCl 10 MG Oral Tablet (Aricept)Indications: Memory change TAKE ONE TABLET BY MOUTH DAILY (5PM) 31 Tablet 11 06/25/2022 Active Ciclopirox 0.77 % External Gel apply small amount to affected webspaces twice daily as needed. let air dry prior to sock/shoe application. 0 08/19/2022 Active Debrox 6.5 % Otic Solution (Carbamide Peroxide)Indications: Bilateral impacted cerumen Instill 5 drops twice daily To both ear canals for 4 days once a month , lay on side for 5 min after placing drops. 15 mL 11 08/25/2022 Active Nyamyc 778252 UNIT/GM External Powder (Nystatin)Indications :Candidal dermatitis Apply topically to affected area 2 times a day. Apply topically to dermatitis around breasts and abdominal folds as needed. 60 g 1 09/02/2022 Active Calcium 600 1500 (600 Ca) MG Oral Tablet (Calcium Carbonate) TAKE 1 TABLET BY MOUTH DAILY 31 Tablet 11 09/22/2022 Active Albuterol Sulfate HFA 108 (90 Base) MCG/ACT Inhalation Aerosol Solution INHALE 2 PUFFS BY MOUTH EVERY 4 HOURS NEEDED FOR COUGH, SHORTNESS OF BREATH 18 g 1 10/29/2022 Active Famotidine 20 MG Oral Tablet (Pepcid)Indications:D ysphagia, unspecified type TAKE 1 TABLET BY MOUTH DAILY 31 Tablet 5 11/21/2022 Active Docusate Sodium 100 MG Oral Capsule (Stool Softener)Indications: Constipation, unspecified constipation type TAKE 1 CAPSULE BY MOUTH TWICE DAILY( 8am.8pm) 62 Capsule 11/23/2022 Active Atorvastatin Calcium 40 MG Oral Tablet (Lipitor)Indications: Dyslipidemia, goal LDL below 100 TAKE 1 TABLET BY MOUTH ONCE DAILY 31 Tablet 5 11/21/2022 Active Vitamin D (Cholecalciferol) 25 MCG (1000 UT) Oral Capsule Take 1 Capsule by mouth daily. 30 Capsule 01/14/2023 Active Levothyroxine Sodium 137 MCG Oral TabletIndications:Hyp othyroidism due to acquired atrophy of thyroid TAKE 1 TABLET BY MOUTH ONCE DAILY AT LEAST 30 MINUTES PRIOR TO BREAKFAST OR OTHER MEDS FOR HYPERTHYROIDISM. 31 Tablet 11 02/23/2023 Active MEDICAL INSTRUCTIONS Okay for Stacey to receive flu vaccine now and covid booster in 4-6 weeks. 1 Each 1 02/25/2023 Active Desitin 40 % External Paste (Zinc Oxide)Indications:Ski n breakdown APPLY A THIN LAYER TO BUTTOCKS TWICE DAILY TO PREVENT BREAKDOWN, NO STOP DATE 113 g 5 03/04/2023 Active Furosemide 20 MG Oral Tablet (Lasix)Indications:Re spiratory failure with hypoxia and hypercapnia, unspecified chronicity [...] Vac Recomb Adjuvanted 120 MCG/0.5ML Intramuscular Suspension ReconstitutedIndicati ons:Need for RSV vaccination 0.5ml one dose 1 Each 0 03/30/2023 Active Acetaminophen 500 MG Oral Tablet (Tylenol)Indications: Personal history of fall,Acute pain of left knee,Hip pain, left TWO pills twice a day x 5 days from 04/05/2023 then 1 tab every 4 hrs as needed for pain/fever 30 Tablet 0 04/05/2023 Active documented as of this encounter (statuses as of 04/07/2023) Active Problems Problem Noted Date Diagnosed Date [...] 02/17/2005 Overview: treated by dr castaneda at [facility]. Down's syndrome 07/29/2004 documented as of this encounter (statuses as of 04/07/2023) Resolved Problems Problem Noted Date Diagnosed Date [...] as of this encounter (statuses as of 04/07/2023) Immunizations Name Administration Dates Next Due COVID-19 mRNA, LNP-s, No Pre serve, 2-Dose Series (Moderna) 06/14/2020,05/10/2020 COVID-19, mRNA, LNP-s, PF, B ooster, 100mcg/0.5mg (Moderna) 09/26/2021,04/07/2021 Covid-19, Mrna, Lnp-s, Pf, B ivalent, 50 Mcg, IM, 12 yrs and above (Moderna) 03/06/2022 H1N1 2009 Influenza, IM 03/19/2009 Hepatitis B, 20+ yrs 03/30/2023,10/26/2022,09/22 PPD 09/22/2022,,04/29/2020,04/25,05/10/2018,07/20/2017,06/23/2016 ,07/15/2015,07/11/2013,07/21/2011,07/19,08/06/2008,07/27/2006 Pneumococcal Conjugate Vacci ne, 20-valent ([id number]) 01/30/2022 Seasonal Influenza Virus Vac cine, Unspecified Formulation 01/31/2021,01/08/2020,01/25/2018,12/29,01/15/2016,02/14/2015,02/09/2013 ,02/11/2012,02/18/2011,01/11/2010,10/2008,02/08/2008,03/31/2006, 5 Seasonal Influenza, PF, 6 M & above, IM , (FluLaval or Fluzone) 03/04/2023,01/30/2022,01/31/2021,01/07,01/25/2018 Seasonal Influenza, Quadriva lent, No Preserve, IM 12/29/2016,01/15/2016,02/14/2015 Seasonal Influenza, Quadriva lent, No Preserve, Mdck 01/17/2019 Seasonal Influenza, Split, I IV3, With Preserve, Inj 02/03/2014,02/09/2013,02/11/2012,02/18,01/11/2010,01/23/2009,02/08/2008 ,03/31/2006 02/03/2015 TDAP (age 10 and older)(Boostrix) 07/11/2013 [...] on file documented as of this encounter Progress Notes * Ayaz Butler PA-C - 04/07/2023 2:38 PM EST Subjective Stacey Wayne is a 52 year old female. Chief Complaint Patient presents with NEW PATIENT Left knee injury 03/26/2023 HPI: New patient referred from the emergency department status post injury that occurred 12 days ago on 03/26/2023. The patient is a resident at a local nursing facility. Recent change in medications, including 2nd medications cause the patient to fall asleep while using the toilet. The patient fell asleep and ultimately fell off the toilet landing on her left knee and experiencing pain and difficulty with weight-bearing. Was evaluated local emergency department, x- rays were obtained and referred to Orthopedics. His never injured the left knee in the past. Denies any calf pain. With nursing staff member and she states that when the patient is not focusing on the left knee she has actually been standing and weight-bearing. The patient then recalls her injury and scared she may sustain a subsequent fall and is then reluctant to attempt any kind of weight- bearing whatsoever. And cycles. Denies any swelling, redness, bruising, numbness or tingling distally. Again, no calf pain. PMH: Patient Active Problem List Diagnosis Code Down's syndrome Q90.9 Depression with anxiety F41.8 Dyslipidemia, goal LDL below 100 E78.5 Dementia due to medical condition with behavioral disturbance ([facility]) F02.818 Hypothyroidism due to acquired atrophy of thyroid E03.4 Renal osteodystrophy N25.0 Chronic kidney disease, stage 3b ([facility]) N18.32 Physician orders for life-sustaining treatment (POLST) [...] directed. Bilateral hip pain 1 Each 0 Misc. Devices (WHEELCHAIR) MISC DX F02.81, Q90.9, R44.3 Please dispense one standard wheelchair with leg rests 1 Each 0 Misc. Devices (BENJAMIN ROLLING WALKER BASIC) [facility] [place] HIP pain and imbalance 1 Each [...] after placing drops. 15 mL 11 Nyamyc 700126 UNIT/GM External Powder (Nystatin) Apply topically to affected area 2 times a day. Apply topically to dermatitis around breasts and abdominal folds as needed. 60 g 1 Calcium 600 1500 (600 Ca) MG Oral Tablet (Calcium Carbonate) TAKE 1 TABLET BY MOUTH DAILY 31 [id number] Albuterol Sulfate HFA 108 (90 Base) MCG/ACT [...] the morning and 1 Tablet before bedtime. [id number] Vac Recomb Adjuvanted 120 MCG/0.5ML Intramuscular Suspension Reconstituted 0.5ml one dose 1 Each 0 Acetaminophen 500 MG Oral Tablet (Tylenol) TWO pills twice a day x 5 days from 04/05/2023 then 1 tab every 4 hrs as needed for pain/fever 30 Tablet 0 No current facility-administered medications for this visit. Past Medical History: Diagnosis Date Allergic rhinitis Down's syndrome Hallucinations Sleep apnea, obstructive Super obese 08/26/2022 Past Surgical History: Procedure Laterality Date INSERTION OF LENS PROSTHESIS 06/23/06 Left Review of patient's allergies indicates: No Known Allergies No family history on file. Family Status Relation Status Mo Fa Social History Socioeconomic History Marital status: Single Spouse name: Not on file Number of children: Not on file Years of education: Not on file Highest education level: Not on file Occupational History Not on file Tobacco Use Smoking status: Never Smokeless tobacco: Never Vaping Use Vaping Use: Never used Substance and Sexual Activity Alcohol use: No Drug use: No Sexual activity: Never Other Topics Concern Service Not Asked Blood Transfusions Not Asked Caffeine Concern Not Asked Occupational Exposure Not Asked Hobby Hazards Not Asked Sleep Concern Not Asked Stress Concern Not Asked Weight Concern Not Asked Special Diet Not Asked Back Care Not Asked Exercise Not Asked Bike Helmet Not Asked Seat Belt Yes Self-Exams Not Asked Social History Narrative Not on file Social Determinants of Health Financial Resource Strain: Not on file Food Insecurity: No Food Insecurity (09/22/2022) Hunger Vital Sign Worried About Running Out of Food in the Last Year: Never true Ran Out of Food in the Last Year: Never true Transportation Needs: Not on file Physical Activity: Not on file Stress: Not on file Social Connections: Not on file Intimate Partner Violence: Not on file Housing Stability: Not on file Objective LMP (LMP Unknown) complete review of systems negative General: alert and oriented x3 female, no acute distress, appears currently stated age, pleasant, well nourished, here with a fellow staff member Skin: Left knee does not reveal any erythema, effusion, ecchymosis, abrasion, laceration, skin breakdown otherwise Neurovascular: Left lower extremity is neurovascularly intact with good sensation strength throughout, calf supple nontender, toes were mobile, +5 strength dorsi and plantar flexion of the foot, FHL,EHL, TA gastroc are intact, distal pulses +2 capillary refill under 2 seconds Musculoskeletal: Left knee ROM 0-115 both actively and passively, endpoints of flexion inhibited secondary to body habitus, no jointline tenderness, crepitation noted in PFJ, femoral condyles and tibial plateau nontender. If anything, the patient reports this is tickling her and is laughing. Ligamen tously I believe I can appreciate laxity when testing her valgus stress as well as her anterior drawer. Unfortunately, the patient is a poor historian and we are unaware if the patient has ever had previous falls presenting more as an acute on chronic type of scenario. Nonetheless, I do appreciate ligamentous laxity left knee. Extensor mechanism intact. No obvious cystic change or masses the popliteal fossa. Pes anserine bursa and patellar tendon nontender. Hip and ankle atraumatic. Patient canperform straight leg raise. X-rays of the left knee reveals subtle medial subluxation of the tibiofemoral joint consistent withosteoarthritis. Reviewed with Dr. Raman and he is in agreement. There is myxn-af-wkwgprhj medial joint space narrowing. There is no advanced osteophytosis. Subtle sclerosis along medial tibial plateau indicative of chronic abnormal wear. No acute findings such as fracture dislocation or subluxation. Unable to identify any type of obvious cystic changes or masses in the bone. Official radiology report to follow accordingly and we listed in the patient's chart under imaging. Personal interpretation and documentation regarding today's plain film radiographs performed by myself. ASSESSMENT/PLAN: Knee injury, left, initial encounter (Primary) - XR KNEE 4 OR MORE VIEWS Impression: Knee injury resulting in possible acute on chronic ACL injury and probable MCL sprain. Underlying moderate osteoarthritis left knee Plan: Today 's findings were discussed with the patient. They were educated regarding their diagnosis. With the patient's current mental handicap there was concern on both our orthopedic end as well as the nursing facility that the patient would not be able to with stand and achieve accurate direction for postoperative protocols from a surgery, therefore we would hold off on obtaining further imaging with an MRI. We also discussed bracing and with the body habitus of the thigh to lower leg ratio we have concern for be able to place any type of immobilizing device over the left knee or brace. We do stress formal physical therapy and I placed an order for this today. Can also use topical modalities as well as thermal agents. Again, the patient is a nursing staff states that she has been ambulating on left lower extremity when she has not focused on or concerned about sustaining a subsequent fall. I feel confident ruling out any type of urgent or emergent pathology after completing the patient has clinical findings today on skin exam, neurovascular status and musculoskeletal exam. I would like to reassess the patient in approximately 4-6 weeks and determine how the patient has been able to increase the amount of weight-bearing as well as responsive physical therapy. Of note, the nursing staff also states that the patient tends to use her rolling wheelchair and scooter versus provide efforts for ambulating. Adding this injury has been extra challenging but they will continue to work to achieve increased repetitions of weight-bearing left lower extremity and she does overall seemed to tolerate this would not focusing on her prior fall and injury. The patient has no other questions or concerns. Pleased with today 's care. Call sooner if needed. This chart was completed in part utilizing [employer] Speech Voice Recognition Software. Grammatical errors, random word insertions, prounoun errors, and incomplete sentences are an occasional consequence of this system due to software limitations, ambient noise, and hardware issues. Any formal questions or concerns about the content, text, or information contained within the body of this dictation should be directly addressed to the provider for clarification. Ayaz Butler PA-C documented in this encounter Nursing Notes * Kadie Hallman LPN - 04/07/2023 2:16 PM EST New patient left knee pain seen at ER 03/26/2023. Patient denies any pain today, Patient denies any PT or injections or injury or bracing or surgery documented in this encounter Plan of Treatment Upcoming Encounters Date Type Department Care Team (Late st Contact Info) Description 04/27/2023 3:15 PM EST Office Visit Dental [facility] [address] [place] [address] [facility] [address] [place] [address] 05/05/2023 1:45 PM EST Office Visit Orthopaedics [facility] [address] [facility] [place] [address] Ayaz Butler PA-C [address] [facility] [place] [address] 06/22/2023 7:40 AM EST Laboratory Laboratory, [facility] [address] [place] [address] [facility] [address] [place] [address] 06/28/2023 10:00 AM EDT Office Visit General Internal Medicine [facility] [place] [address] [place] [address] Christine Dumont MD [address] [facility] [place] [address] 09/14/2023 3:00 PM EDT Office Visit Nephrology, [facility] [address] [facility] [place], [place] [address] Katlin Berry PA-C [address] [facility] [place] [address] 09/24/2023 2:40 PM EDT Office Visit General Internal Medicine [facility] [address] [facility] [place] [address] Christine Dumont MD [address] [facility] [place] [address] 10/26/2023 10:45 AM EDT Imaging Radiology [address] [facility] [place] [address] Pending Results Name Type Priority Associated Diagnoses Date /Time XR KNEE 4 OR MORE VIEWS Medical Imaging Routine 04/07/2023 3:06 PM EST Scheduled Orders Name Type Priority Associated Diagnoses Orde r Schedule XR KNEE 4 OR MORE VIEWS Medical Imaging Routine Ordered: 023 Scheduled Referrals Name Type Priority Associated Diagnoses Orde r Schedule PHYSICAL THERAPY REFERRAL OP Referral Within 10 days (routine) Left knee injury, initial encounter Ordered: 04/07/2023 Health Maintenance Due Date Last Done Comments HIV Screening 06/19/1983 COVID-19 Vaccine ( season) 2022 03/06/2022, 09/26/2021, 04/07/2021, Additional history exists PAP SMEAR-EVERY 5 YRS,AGES 21-100 03/15/2023 03/15/2018, 08/16/2014, 06/17/2010, Additional history exists DTaP,Tdap,and Td Vaccines (2 - Td or Tdap) 07/12/2023 07/11/2013 GFR 09/22/2023 03/23/2023, 10/2022, 07/31/2022, Additional history exists Depression Screening 09/23/2023 09/22/2022 Mammogram 10/15/2023 10/14/2022, 09/18, 10/13/2021, Additional history exists CKD HGB USE SMARTSET 97076 10/24/202310/23, 10/23/2022, 03/27/2022, Additional history exists CKD PHOS USE SMARTSET 70401 10/24/2023 07/0 10/2022, 03/27/2022, 12/31/2021, Additional history [...] as of this encounter Visit Diagnoses Diagnosis Left knee injury, initial encounter- Primary documented in this encounter Advance Directives Documents on File Type Date Recorded Patient Administrative Personal Assistant Expl anation POLST 01/30/2022 [place] [facility]AIN[facility] Care Teams Open [employer]earth Melter Relationship Specialty Start Date End Date Christine Dumont MD [address] [place] [address] [place], [place] [address] PCP - General Internal Medicine 02/06/21 documented as of this encounter
--- OUTSIDE RECORDS SUMMARY | 2023-04-24 14:29 | External Medical Summary | Summary of Care ---
Author Name Unknown Organization [facility] Address [address] [place] [address] Phone [phone] Care Team Providers Care Revenue Manager Name Role Phone Christine Dumont MD Primary Care Provider [phone] Encounter Details Date Type Department Care Team (Latest Contact Info) Description 03/26/2023 9:05 PM EST - 03/26/2023 11:59 PM EST Hospital Encounter Radiology Film File [address] [place] [address] Discharge Disposition: Home - Self Care Allergies No known active allergiesdocumented as of this encounter (statuses as of 04/08/2023) Medications Medication Sig Dispensed Refills Start Date [...] 153 g 4 03/11/2022 Active Spacer/Aero-Holding Chambers DeviceIndications:[place] ctive airway disease without complication, unspecified asthma [...] drops. 15 mL 11 08/25/2022 Active Nyamyc 339511 UNIT/GM External Powder (Nystatin)Indications :Candidal dermatitis Apply [...] MOUTH TWICE DAILY( 8am.8pm) 62 Capsule 5 11/23/2022 Active Atorvastatin Calcium 40 MG Oral Tablet (Lipitor)Indications: Dyslipidemia, goal LDL below 100 TAKE 1 TABLET BY MOUTH ONCE DAILY 31 Tablet 5 11/21/2022 Active Vitamin D (Cholecalciferol) 25 MCG (1000 UT) Oral Capsule Take 1 Capsule by mouth daily. 30 Capsule 5 01/14/2023 Active Levothyroxine Sodium 137 MCG Oral [...] 48 hours 30 Tablet 11 03/04/2023 Active documented as of this encounter (statuses as of 04/08/2023) Active Problems Problem Noted Date Diagnosed Date [...] 02/17/2005 Overview: treated by dr castaneda at [facility] service unit. Down's syndrome 07/29/2004 documented as of this encounter (statuses as of 04/08/2023) Resolved Problems Problem Noted Date Diagnosed Date [...] as of this encounter (statuses as of 04/08/2023) Immunizations Name Administration Dates Next Due COVID-19 mRNA, LNP-s, No Pre serve, 2-Dose Series (Moderna) 06/14/2020,05/10/2020 COVID-19, mRNA, LNP-s, PF, B ooster, 100mcg/0.5mg (Moderna) 09/26/2021,04/07/2021 Covid-19, Mrna, Lnp-s, Pf, B ivalent, 50 Mcg, IM, 12 yrs and above (Moderna) 03/06/2022 H1N1 2009 Influenza, IM 03/19/2009 Hepatitis B, 20+ yrs 10/26/2022,09/22/2022 PPD 09/22/2022,,04/29/2020,04/25,05/10/2018,07/20/2017,06/23/2016 ,07/15/2015,07/11/2013,07/21/2011,07/19,08/06/2008,07/27/2006 Pneumococcal Conjugate Vacci ne, 20-valent ([id number]) 01/30/2022 Seasonal Influenza Virus Vac cine, Unspecified [...] on file documented as of this encounter Plan of Treatment Upcoming Encounters Date Type Department Care Team (Late st Contact Info) Description 04/27/2023 3:15 PM EST Office Visit Dental Hygiene, [address] [address] Augustin Reny, [address] [place] [address] 05/05/2023 1:45 PM EST Office Visit Orthopaedics [facility] 132 [facility] [place] [address] Ayaz Butler PA-C 132 [facility] [place] [address] 06/22/2023 7:40 AM EST Laboratory Laboratory, [place] [address] [place] [phone] [facility] [address] [place] [address] 06/28/2023 10:00 AM EDT Office Visit General Internal Medicine [facility] [address] [place] [address] Christine Dumont MD [address] [place] [address] 09/14/2023 3:00 PM EDT Office Visit Nephrology, [facility] [address] [place] [address] Katlin Berry PA-C [address] [place] [address] 09/24/2023 2:40 PM EDT Office Visit General Internal Medicine [facility] [address] [place] [address] Christine Dumont MD [address] [place] [address] 10/26/2023 10:45 AM EDT Imaging Radiology [facility] 1st [facility] [place] [address] [facility] [place] [address] Health Maintenance Due Date Last Done Comments HIV Screening 06/19/1983 COVID-19 Vaccine (6 - 2023-24 season) 2022 03/06/2022, 09/26/2021, 04/07/2021, Additional history exists PAP SMEAR-EVERY 5 YRS,AGES 21-100 03/15/2023 03/15/2018, 08/16/2014, 06/17/2010, Additional history exists DTaP,Tdap,and Td Vaccines (2 - Td or Tdap) 07/12/2023 07/11/2013 GFR 09/22/2023 03/23/2023, 07/0 10/2022, 07/31/2022, Additional history exists Depression Screening 09/23/2023 09/22/2022 Mammogram 10/15/2023 10/14/2022, 09/18, 10/13/2021, Additional history exists CKD HGB USE SMARTSET 55733 10/24/202310/23, 10/23/2022, 03/27/2022, Additional history exists CKD PHOS USE SMARTSET 67612 10/24/2023 07/0 10/2022, 03/27/2022, 12/31/2021, Additional history exists TSH 10/24/2023 10/23/2022, 051 , 06/24/2022, Additional history exists Albumin/Creatinine Ratio 03/06/2024 023, 12/31/2021, 05/01/2021, Additional history exists Diabetes Screening 03/23/2026 03/23/2023, 1 05/24/2022, 03/23/2023, Additional history exists Lipid Panel 03/23/2028 03/23/2023, 07/0 10/2022, 06/24/2022, Additional history exists Pap Smear Discontinued 03/15/2018, 04/3 , 06/22/2011 (Done elsewhere), Additional history exists Cologuard [...] Not on filedocumented as of this encounter Procedures Procedure Name Priority Date/Time Associated Diagnosis Comments RADIOLOGY EXAM - GENERAL RAD (IMAGES ONLY,NO REPORT) Routine 03/26/2023 9:05 PM EST documented in this encounter Results * RADIOLOGY EXAM - GENERAL RAD (IMAGES ONLY,NO REPORT) (03/26/2023 9:05 PM EST) 03/26/2023 9:02 PM EST Narrative Scheduling, Silent - 04/07/2023 2:40 PM EST This is an imaging study not interpreted or resulted by a [employer] or [employer] contracted radiologist. 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 FOR LIFE-SUSTAINING TREATMENT Care Teams Revenue Manager Relationship Specialty Start Date End Date Christine Dumont MD 200 [facility] [place] [address] PCP - General Internal Medicine 02/06/21 documented as of this encounter
--- OUTSIDE RECORDS SUMMARY | 2023-04-24 14:29 | External Medical Summary | Summary of Care ---
Author Name Unknown Organization [facility] Address [address] [place] [address] Phone [phone] Care Team Providers Care Cat Swamper Name Role Phone Christine Dumont MD Primary Care Provider [phone] Encounter Details Date Type Department Care Team (Late st Contact Info) Description 03/30/2023 Orders Only Orthopaedics [facility] [address] [place] [address] Ayaz Butler PA-C [address] [place] [address] Allergies No known active allergiesdocumented as of [...] 1 Each 0 02/24/2017 Active Misc. Devices (WatchFrog) MISCIndications:Hip pain, right Rt HIP pain and [...] drops. 15 mL 11 08/25/2022 Active Nyamyc 677115 UNIT/GM External Powder (Nystatin)Indications :Candidal dermatitis Apply [...] 1 TABLET BY MOUTH DAILY 31 Tablet 11/21/2022 Active Docusate Sodium 100 MG Oral [...] OR OTHER MEDS FOR HYPERTHYROIDISM. 31 Tablet 02/23/2023 Active MEDICAL INSTRUCTIONS Okay for Stacey [...] one dose 1 Each 0 03/30/2023 Active documented as of this encounter (statuses [...] 02/17/2005 Overview: treated by dr castaneda at [facility] service unit. Down's syndrome 07/29/2004 [...] 09/22/2022,,04/29/2020,04/25,05/10/2018,07/20/2017,06/23/2016 ,07/15/2015,07/11/2013,07/21/2011,07/19,08/06/2008,07/27/2006 Pneumococcal Conjugate Vacci ne, 20-valent ([id number]) 01/30/2022 Seasonal Influenza Virus Vac cine, Unspecified [...] 3:15 PM EST Office Visit Dental Hygiene, [place] [address] [place] [address] Reny Ruffin, [facility] [address] [place] [address] 06/22/2023 7:40 AM EST Laboratory Laboratory, [place] [address] [place] [phone] [place] [address] [place] [address] 06/28/2023 10:00 AM EDT Office Visit General Internal Medicine [facility] [address] [place] [address] Christine Dumont MD [address] [place] [address] 09/14/2023 3:00 PM EDT Office Visit Nephrology, [facility] [address] [place] [address] Katlin Berry PA-C [address] [place] [address] [place] [address] 09/24/2023 2:40 PM EDT Office Visit General Internal Medicine [facility] [address] [place] [address] Christine Dumont MD [address] [facility] [place] [address] 10/26/2023 10:45 AM EDT Imaging Radiology [facility] 1st [facility] [address] [place] [address] Health Maintenance Due Date Last Done Comments HIV Screening 06/19/1983 COVID-19 Vaccine (2022- season) 2022 03/06/2022, 09/26/2021, 04/07/2021, Additional history exists PAP SMEAR-EVERY 5 YRS,AGES 21-100 03/15/2023 03/15/2018, 08/16/2014, 06/17/2010, Additional history exists DTaP,Tdap,and Td Vaccines (2 - Td or Tdap) 07/12/2023 07/11/2013 GFR 09/22/2023 03/23/2023, 07/0 10/2022, 07/31/2022, Additional history exists Depression Screening 09/23/2023 09/22/2022 Mammogram 10/15/2023 10/14/2022, 09/18, 10/13/2021, Additional history exists CKD HGB USE SMARTSET 91345 10/24/202310/23, 10/23/2022, 03/27/2022, Additional history exists CKD PHOS USE SMARTSET 21446 10/24/2023 07/0 10/2022, 03/27/2022, 12/31/2021, Additional history [...] - GENERAL RAD (IMAGES ONLY,NO REPORT) Routine 03/30/2023 11:30 PM EST documented in this encounter Results * RADIOLOGY EXAM - GENERAL RAD (IMAGES ONLY,NO REPORT) (03/30/2023 11:30 PM EST) 03/30/2023 11:3 0 PM EST Narrative Scheduling, Silent - 04/07/2023 2:42 PM EST This is an imaging study not interpreted or resulted by a [facility] or [employer] contracted radiologist. Ayaz Butler PA-C RADIOLOGY (RAD GENERAL) documented in this encounter Advance Directives Documents on File Type Date Recorded Patient House Calls Nurse Practitioner Expl anation POLST 01/30/2022 [place] OR [facility] FOR LIFE-SUSTAINING TREATMENT Care Teams Cat Swamper Relationship Specialty Start Date End Date Christine Dumont MD [address] [place] [address] PCP - General Internal Medicine 02/06/21 documented as of this encounter
--- OUTSIDE RECORDS SUMMARY | 2023-04-24 14:29 | External Medical Summary | Summary of Care ---
Author Name Unknown Organization [facility] Address [address] [place] [address] Phone [phone] Care Team Providers Care Senior Research Executive Name Role Phone Christine Dumont MD Primary Care Provider [phone] Encounter Details Date Type Department Care Team (Latest Contact Info) Description 03/30/2023 11:30 PM EST - 03/30/2023 11:59 PM EST Hospital Encounter Radiology Film File [address] [place] [address] Discharge Disposition: Home - Self [...] drops. 15 mL 11 08/25/2022 Active Nyamyc [id number] UNIT/GM External Powder (Nystatin)Indications :Candidal dermatitis Apply [...] 09/22/2022,,04/29/2020,04/25,05/10/2018,07/20/2017,06/23/2016 ,07/15/2015,07/11/2013,07/21/2011,07/19,08/06/2008,07/27/2006 Pneumococcal Conjugate Vacci ne, 20-valent ([id number]) 01/30/2022 Seasonal Influenza Virus Vac cine, Unspecified [...] 3:15 PM EST Office Visit Dental Hygiene, [place] [address] [place] [address] Reny Ruffin, [facility] [address] [place] [address] 05/05/2023 1:45 PM EST Office Visit Orthopaedics [facility] 132 [facility] [place] [address] Ayaz Butler PA-C [facility] [place] [address] 06/22/2023 7:40 AM EST Laboratory Laboratory, [place] [address] [place] [phone] [place] [address] [place] [address] 06/28/2023 10:00 AM EDT Office Visit [facility] Internal [facility] [place] [address] [place] [address] Christine Dumont MD [address] [facility] [place] [address] 09/14/2023 3:00 PM EDT Office Visit Nephrology, [facility] [place] [address] [place] [address] Katlin Berry PA-C [address] [place] [address] 09/24/2023 2:40 PM EDT Office Visit General Internal Medicine [facility] [address] [place] [address] Christine Dumont MD [address] [facility] [place] [address] 10/26/2023 10:45 AM EDT Imaging Radiology [address] 132 [facility] [place] [address] Health Maintenance Due Date Last Done Comments HIV Screening 06/19/1983 COVID-19 Vaccine (2022- season) 2022 03/06/2022, 09/26/2021, 04/07/2021, Additional history exists PAP SMEAR-EVERY 5 YRS,AGES 21-100 03/15/2023 03/15/2018, 08/16/2014, 06/17/2010, Additional history exists DTaP,Tdap,and Td Vaccines (2 - Td or Tdap) 07/12/2023 07/11/2013 GFR 09/22/2023 03/23/2023, 0710/2022, 07/31/2022, Additional history exists Depression Screening 09/23/2023 09/22/2022 Mammogram 10/15/2023 10/14/2022, 09/18, 10/13/2021, Additional history exists CKD HGB USE SMARTSET 77715 10/24/202310/23, 10/23/2022, 03/27/2022, Additional history exists CKD PHOS USE SMARTSET 88256 10/24/2023 07/0 10/2022, 03/27/2022, 12/31/2021, Additional history exists TSH 10/24/2023 10/23/2022, 08/17, 06/24/2022, Additional history exists Albumin/Creatinine Ratio 03/06/202403/06/2 023, 12/31/2021, 05/01/2021, Additional history exists Diabetes Screening 03/23/2026 03/23/2023, 1 05/24/2022, 03/23/2023, Additional history exists Lipid Panel 03/23/2028 03/23/2023, 10/2022, 06/24/2022, Additional history exists Pap Smear [...] interpreted or resulted by a [facility] or [employer] contracted radiologist. 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
--- OUTSIDE RECORDS SUMMARY | 2023-04-24 14:29 | External Medical Summary | Summary of Care ---
Author Name Unknown Organization [facility] Address [address] [place] [address] Phone [phone] Care Team Providers Care Corn Sheller Name Role Phone Christine Dumont MD Primary Care Provider [phone] Encounter Details Date Type Department Care Team (Late st Contact Info) Description 03/26/2023 Result Scan Unspecified Department <No scans attached> Allergies No known active allergiesdocumented as of this encounter (statuses as of 04/14/2023) Medications Medication Sig Dispensed Refills Start Date [...] 153 g 4 03/11/2022 Active Spacer/Aero-Holding Chambers DeviceIndications:[place] ctive airway disease without complication, unspecified asthma [...] drops. 15 mL 11 08/25/2022 Active Nyamyc [id number] UNIT/GM External Powder (Nystatin)Indications :Candidal dermatitis Apply [...] as of this encounter (statuses as of 04/14/2023) Active Problems Problem Noted Date Diagnosed Date [...] 02/17/2005 Overview: treated by dr castaneda at [facility] service unit. Down's syndrome 07/29/2004 documented as of this encounter (statuses as of 04/14/2023) Resolved Problems Problem Noted Date Diagnosed Date [...] as of this encounter (statuses as of 04/14/2023) Immunizations Name Administration Dates Next Due COVID-19 mRNA, LNP-s, No Pre serve, 2-Dose Series (Moderna) 06/14/2020,05/10/2020 COVID-19, mRNA, LNP-s, PF, B ooster, 100mcg/0.5mg (Moderna) 09/26/2021,04/07/2021 Covid-19, Mrna, Lnp-s, Pf, B ivalent, 50 Mcg, IM, 12 yrs and above (Moderna) 03/06/2022 H1N1 2009 Influenza, IM 03/19/2009 Hepatitis B, 20+ yrs 10/26/2022,09/22/2022 PPD 09/22/2022,,04/29/2020,04/25,05/10/2018,07/20/2017,06/23/2016 ,07/15/2015,07/11/2013,07/21/2011,07/19,08/06/2008,07/27/2006 Pneumococcal Conjugate Vacci ne, 20-valent ([id number]) 01/30/2022 Seasonal Influenza Virus Vac cine, Unspecified [...] 3:15 PM EST Office Visit Dental Hygiene, [place] [address] [place] [address] Reny Ruffin, [facility] [address] [place] [address] 05/05/2023 1:45 PM EST Office Visit Orthopaedics [facility] 132 [facility] [place] [address] Ayaz Butler PA-C 132 [facility] [place] [address] 06/22/2023 7:40 AM EST Laboratory Laboratory, [place] [address] [place] [address] [facility] [address] [place] [address] 06/28/2023 10:00 AM EDT Office Visit General Internal Medicine [facility] [address] [place] [address] Christine Dumont MD [address] [place] [address] 09/14/2023 3:00 PM EDT Office Visit Nephrology, [facility] [address] [place] [address] Katlin Berry PA-C [address] [place] [address] 09/24/2023 2:40 PM EDT Office Visit General Internal Medicine [facility] [address] [place] [address] Christine Dumont MD [address] [place] [address] 10/26/2023 10:45 AM EDT Imaging Radiology [facility] 1st [facility] [place] [address] Health Maintenance Due Date Last Done Comments [...] Additional history exists CKD HGB USE SMARTSET 01312 10/24/202310/23, 10/23/2022, 03/27/2022, Additional history exists CKD PHOS USE SMARTSET 70853 10/24/2023 07/0 10/2022, 03/27/2022, 12/31/2021, Additional history [...] Additional history exists Hepatitis B Completed 03/30/2023, 1 , 09/22/2022 Colonoscopy Discontinued Fecal Occult Blood Test [...] Name Priority Date/Time Associated Diagnosis Comments RADIOLOGY SCANNED RESULT 03/26/2023 documented in this encounter Results * RADIOLOGY SCANNED RESULT (03/26/2023) 03/26/2023 No Physician Data Unknown DIAGNOSTIC RAD IOLOGY SERVICES documented in this encounter Advance Directives Documents on File Type Date Recorded Patient Concierge Expl anation POLST 01/30/2022 [place] OR [facility] FOR LIFE-SUSTAINING TREATMENT Care Teams Corn Sheller Relationship Specialty Start Date End Date Christine Dumont MD 200 [facility] [address] PCP - General Internal Medicine 02/06/21 documented as of this encounter
--- OUTSIDE RECORDS SUMMARY | 2023-04-24 14:30 | External Medical Summary | Summary of Care ---
Author Name Unknown Organization [facility] Address [address] [place] [address] Phone [phone] Care Team Providers Care Supplier Engineer Name Role Phone Christine Dumont MD Primary Care Provider [phone] Encounter Details Date Type Department Care Team (Late st Contact Info) Description 03/26/[address] [facility] [address] [place] [address] Ayaz Butler PA-C [address] [place] [address] Allergies No known active allergiesdocumented as of [...] 1 Each 0 02/24/2017 Active Misc. Devices (devsisters) MISCIndications:Hip pain, right Rt HIP pain and [...] drops. 15 mL 11 08/25/2022 Active Nyamyc 307508 UNIT/GM External Powder (Nystatin)Indications :Candidal dermatitis Apply [...] 02/17/2005 Overview: treated by dr castaneda at [facility]. Down's syndrome 07/29/2004 documented as [...] 09/22/2022,,04/29/2020,04/25,05/10/2018,07/20/2017,06/23/2016 ,07/15/2015,07/11/2013,07/21/2011,07/19,08/06/2008,07/27/2006 Pneumococcal Conjugate Vacci ne, 20-valent ([id number]) 01/30/2022 Seasonal Influenza Virus Vac cine, Unspecified [...] 3:15 PM EST Office Visit Dental Hygiene, [place] [address] [place] [address] Spencer Reny, [facility] [address] [place] [address] 06/22/2023 7:40 AM EST Laboratory Laboratory, [place] [address] [place] [phone] [facility] [address] [place] [address] 06/28/2023 10:00 AM EDT Office Visit General Internal Medicine [facility] [address] [place] [address] Christine Dumont MD [address] [place] [address] 09/14/2023 3:00 PM EDT Office Visit Nephrology, [facility] [address] [place] [address] ZeKatlin skelton PA-C 200 [facility] [place] [address] 09/24/2023 2:40 PM EDT Office Visit General Internal Medicine [facility] [address] [place] [address] Christine Dumont MD 200 [facility] [place] [address] 10/26/2023 10:45 AM EDT Imaging Radiology [facility] 1st [facility] [address] [place] [address] Health Maintenance Due Date Last Done Comments [...] Additional history exists CKD HGB USE SMARTSET 37006 10/24/202310/23, 10/23/2022, 03/27/2022, Additional history exists CKD PHOS USE SMARTSET 09364 10/24/2023 07/0 10/2022, 03/27/2022, 12/31/2021, Additional history [...] study not interpreted or resulted by a [employer] or [employer] contracted radiologist. Ayaz Butler PA-C RADIOLOGY (RAD GENERAL) documented in this encounter Advance Directives Documents on File Type Date Recorded Patient Hog Buyer Expl anation POLST 01/30/2022 [place] OR [facility] FOR LIFE-SUSTAINING TREATMENT Care Teams Supplier Engineer Relationship Specialty Start Date End Date Christine Dumont MD 200 [place] [address] PCP - General Internal Medicine 02/06/21 documented as of this encounter
--- OUTSIDE RECORDS SUMMARY | 2023-04-24 14:30 | External Medical Summary | Summary of Care ---
Author Name Unknown Organization [facility] Address [address] [place] [address] Phone [phone] Care Team Providers Care Progress Developer Name Role Phone Christine Dumont MD Primary Care Provider [phone] Reason for Referral * Evaluate & Treat - Unlimited Visits (Within 10 days (routine)) - Authorized Specialty Diagnoses / Procedures Referred By Mable quigley Referred To Contact Physical Therapy / Physical Medicine And Rehab Diagnoses Personal history of fall Acute pain of left knee Fear of falling Obesity hypoventilation syndrome (HCC) Down's syndrome Dementia due to medical condition with behavioral disturbance (HCC) MICHI (obstructive sleep apnea) Nocturnal hypoxia Hypersomnolence Christine Dumont MD [address] [place] [address] Referral ID Status Reason Start Date Expiration Date Visits Requested Visits Authorized [id number] Authorized Specialty Services Required 3 [phone] Question Answer Referral Priority Within 10 days (routine) Where should this appointment be scheduled? External Reason for Visit * Reason Comments Emergency Department Follow-Up The pt st ortiz she is here to follow up after a recent trip to the [facility] ED Encounter Details Date Type Department Care Team (Latest Contact Info) Description 03/30/2023 2:40 PM EST Office Visit General Internal Medicine [facility] [place] [address] Christine Dumont MD [address] [place] [address] Personal history of fall*; Acute pain of left knee; Fear of falling; Hypothyroidism due to acquired atrophy of thyroid; Obesity hypoventilation syndrome (HCC); Down's syndrome; Dementia due to medical condition with behavioral disturbance (HCC); MICHI (obstructive sleep apnea); Nocturnal hypoxia; Hypersomnolence; Need for hepatitis B vaccination; Need for RSV vaccination; Need for COVID-19 vaccine Allergies No known active allergiesdocumented as of this encounter (statuses as of 03/30/2023) Medications Medication Sig Dispensed Refills Start Date End Date Status Misc. Devices (WHEEL CHAIR K1 BASIC DESK ARM) MISCIndications:Hip pain, bilateral Use as directed. Bilateral hip pain 1 Each 0 02/10/20 17 Active Misc. Devices (WHEELCHAIR) MISCIndications:Dem entia due to medical condition with behavioral disturbance (HCC),Down's syndrome,Hallucinat ions,Difficulty walking DX F02.81, Q90.9, R44.3 Please dispense one standard wheelchair with leg rests 1 Each 0 02/25/20 17 Active Misc. Devices (BENJAMIN ROLLING WALKER BASIC) MISCIndications:Hip pain, right Rt HIP pain and imbalance 1 Each 0 09/16/19 18 Active Restasis 0.05 % Ophthalmic Emulsion (cycloSPORINE) Instill 1 Drop into both eyes in the morning and 1 Drop before bedtime. affected eye(s). 0 04/29/19 22 Active Sodium Fluoride 1.1 % Dental Cream (Denta 5000 Plus) Use a pea size amount as toothpaste twice daily 153 g 4 03/11/20 22 Active Spacer/Aero-Holding Chambers DeviceIndications:R eactive airway disease without complication, unspecified asthma severity, unspecified whether persistent Use with inhaler. 1 Each 0 03/23/20 22 Active Medical Compression StockingsIndication s:Edema of both legs Please put compression stockings on in the morning and remove in the evening. 2 Each 0 04/08/20 22 Active Budesonide-Formoter ol Fumarate 160-4.5 MCG/ACT Inhalation Aerosol (Symbicort) Inhale 2 Puffs by mouth in the morning and 2 Puffs before bedtime. 10.2 g 12 04/22/19 23 Active Donepezil HCl 10 MG Oral Tablet (Aricept)Indication s:Memory change TAKE ONE TABLET BY MOUTH DAILY (5PM) 31 Tablet 11 06/26/19 23 Active Ciclopirox 0.77 % External Gel apply small amount to affected webspaces twice daily as needed. let air dry prior to sock/shoe application. 0 08/20/19 23 Active Debrox 6.5 % Otic Solution (Carbamide Peroxide)Indication s:Bilateral impacted cerumen Instill 5 drops twice daily To both ear canals for 4 days once a month , lay on side for 5 min after placing drops. 15 mL 11 08/26/19 23 Active Nyamyc 264839 UNIT/GM External Powder (Nystatin)Indicatio ns:Candidal dermatitis Apply topically to affected area 2 times a day. Apply topically to dermatitis around breasts and abdominal folds as needed. 60 g 1 09/03/19 23 Active Calcium 600 1500 (600 Ca) MG Oral Tablet (Calcium Carbonate) TAKE 1 TABLET BY MOUTH DAILY 31 Tablet 09/23/19 23 Active Albuterol Sulfate HFA 108 (90 Base) MCG/ACT Inhalation Aerosol Solution INHALE 2 PUFFS BY MOUTH EVERY 4 HOURS NEEDED FOR COUGH, SHORTNESS OF BREATH 18 g 1 10/30/19 23 Active Famotidine 20 MG Oral Tablet (Pepcid)Indications :Dysphagia, unspecified type TAKE 1 TABLET BY MOUTH DAILY 31 Tablet 11/22/19 23 Active Docusate Sodium 100 MG Oral Capsule (Stool Softener)Indication s:Constipation, unspecified constipation type TAKE 1 CAPSULE BY MOUTH TWICE DAILY( 8am.8pm) 62 Capsule 11/24/19 23 Active Atorvastatin Calcium 40 MG Oral Tablet (Lipitor)Indication s:Dyslipidemia, goal LDL below 100 TAKE 1 TABLET BY MOUTH ONCE DAILY 31 Tablet 11/22/19 23 Active Vitamin D (Cholecalciferol) 25 MCG (1000 UT) Oral Capsule Take 1 Capsule by mouth daily. 30 Capsule 5 01/15/20 23 Active Levothyroxine Sodium 137 MCG Oral TabletIndications:H ypothyroidism due to acquired atrophy of thyroid TAKE 1 TABLET BY MOUTH ONCE DAILY AT LEAST 30 MINUTES PRIOR TO BREAKFAST OR OTHER MEDS FOR HYPERTHYROIDISM . 31 Tablet 11 02/24/20 Active MEDICAL INSTRUCTIONS Okay for Stacey to receive flu vaccine now and covid booster in 4-6 weeks. 1 Each 1 02/26/20 23 Active Desitin 40 % External Paste (Zinc Oxide)Indications:S kin breakdown APPLY A THIN LAYER TO BUTTOCKS TWICE DAILY TO PREVENT BREAKDOWN, NO STOP DATE 113 g 5 03/04/20 23 Active Furosemide 20 MG Oral Tablet (Lasix)Indications: Respiratory failure with hypoxia and hypercapnia, unspecified chronicity (HCC),Grade II diastolic dysfunction,Obesity hypoventilation syndrome (HCC) Take 1 Tablet by mouth every other day. AND may take extra 20 mg tablet daily up to 3 days for weight gain more than 3 pounds in 24 hours or more than 5 pounds in 48 hours 30 Tablet 11 03/04/20 23 Active traZODone HCl 50 MG Oral Tablet (Desyrel) Take 1 Tablet by mouth at bedtime. 0 03/24/20 23 Active buPROPion HCl ER (SR) 200 MG Oral Tablet Extended Release 12 Hour (Wellbutrin SR) Take 1 Tablet by mouth in the morning. In the morning.. 0 03/24/20 23 Active QUEtiapine Fumarate 100 MG Oral Tablet (SEROquel) Take 1 Tablet by mouth in the morning and 1 Tablet before bedtime. 0 03/23/20 23 Active Acetaminophen 500 MG Oral Tablet (Tylenol)Indication s:Personal history of fall,Acute pain of left knee one pill twice a day x 5 days then 1 tab every 4 hrs as needed for pain/fever 0 03/30/20 23 Active RSVPreF3 Vac Recomb Adjuvanted 120 MCG/0.5ML Intramuscular Suspension ReconstitutedIndica tions:Need for RSV vaccination 0.5ml one dose 1 Each 0 03/30/20 23 Active buPROPion XL (WELLBUTRIN XL) 300 MG TB24 TAKE ONE TABLET BY MOUTH IN THE MORNING 31 Tab 3 07/03/19 18 023 Discontinued QUEtiapine Fumarate 25 MG Oral Tablet (SEROquel) 50 mg in the morning and 100 mg at bedtime. 120 Tablet 5 04/29/19 22 023 Discontinued QUEtiapine Fumarate 100 MG Oral Tablet (SEROquel) 0 03/15/20 23 023 Discontinued(Re fill) documented as of this encounter (statuses as of 03/30/2023) Active Problems Problem Noted Date Diagnosed Date [...] as of this encounter (statuses as of 03/30/2023) Resolved Problems Problem Noted Date Diagnosed Date [...] as of this encounter (statuses as of 03/30/2023) Immunizations Name Administration Dates Next Due COVID-19 mRNA, LNP-s, No Pre serve, 2-Dose Series (Moderna) 06/14/2020,05/10/2020 COVID-19, mRNA, LNP-s, PF, B ooster, 100mcg/0.5mg (Moderna) 09/26/2021,04/07/2021 Covid-19, Mrna, Lnp-s, Pf, B ivalent, 50 Mcg, IM, 12 yrs and above (Moderna) 03/06/2022 H1N1 2009 Influenza, IM 03/19/2009 Hepatitis B, 20+ yrs 03/30/2023,10/26/2022,09/22 PPD 09/22/2022,,04/29/2020,04/25,05/10/2018,07/20/2017,06/23/2016 ,07/15/2015,07/11/2013,07/21/2011,07/19,08/06/2008,07/27/2006 Pneumococcal Conjugate Vacci ne, 20-valent ([id number]) 01/30/2022 Seasonal Influenza Virus Vac cine, Unspecified [...] Sign Reading Time Taken Comments Blood Pressure 112/72 03/30/2023 2:57 PM EST Pulse 60 03/30/2023 2:57 PM EST Temperature 35.1 C (95.2 F) 03/30/2023 2:57 PM ES T Respiratory Rate - - Oxygen Saturation - - Inhaled Oxygen Concentration - - Weight 107.7 kg (237 lb 6.4 oz) 03/30/2023 2:57 PM EST Height - - Body Mass Index 51.37 07/31/2022 12:10 PM EDT documented in this encounter Progress Notes * Ayaz Thompson LPN - 03/30/2023 3:35 PM EST Pre-Administration Time Out Procedure Performed: Yes Patient Identified (Ask Name/Date of ): Yes Does the patient have a fever greater than 101 degrees today? No Patient allergic to latex? No Has the patient ever fainted after receiving an injection? No VFC Stock: No Immunization(s) verified: Yes, Immunization Name: Hep B, VIS Sheet(s) given: Yes Verified Side and Site: Yes Verified Shot(s) with Parent(s)/Patient: Yes * Christine Dumont MD - 03/30/2023 2:58 PM EST SUBJECTIVE: Stacey Wayne is a 52 year old female. Chief Complaint Patient presents with Emergency Department Follow-Up The pt stated she is here to follow up after a recent trip to the [facility] ED HPI: Patient with a problem list as below presents today accompanied by her caregiver for ER follow-up from 03/26/2023, seen status post fall injuring her left knee and had struck her head. Had some tenderness over the anterior left knee no bruising. CT cervical spine-no acute fracture or subluxation, straightening of cervical lordosis, multilevel cervical spondylosis and degenerative disc disease. CT head-no acute findings, sinuses clear. X-ray of the pelvis, left hip, left knee negative per ER report, final report awaited. Nurse requested to call for the report. No medication changes at discharge -since the [...] [facility] till 05/27/23 Patient is a pleasant female [facility] Down syndrome, depression with anxiety, dementia with behavioral disturbance, history of auditory and visual hallucinations f/b Psychiatry at [facility] CKD 3 without hypertension, renal osteodystrophy followed by Nephrology. Dyslipidemia on [id number], inc 20mg 05/11, hypothyroidism, morbid obesity History [...] Lasix. Wt Readings from Last 6 Encounters: 03/30/23 107.7 kg (237 lb 6.4 oz) 03/22/23 107.5 kg (237 lb) 03/04/23 106.9 kg (235 lb 9.6 oz) 12/28/22 108.7 kg (239 lb 9.6 oz) 12/09/22 106.5 kg (234 lb 11.2 oz) 09/22/22 105.6 kg (232 lb 12.8 oz) BP Readings from Last 6 Encounters: 03/30/23 112/72 03/22/23 100/62 03/04/23 90/52 12/28/22 112/64 12/09/22 102/62 09/22/22 106/64 Had covid inf 02/08 Discussed about covid booster, RSV vaccine. Hep B vaccine 3 today Immunization History Administered Date(s) Administered COVID-19 mRNA, LNP-s, No Preserve, 2-Dose Series (Moderna) 05/10/2020, 06/14/2020 COVID-19, mRNA, LNP-s, PF, Booster, 100mcg/0.5mg (Moderna) 04/07/2021, 09/26/2021 Covid-19, Mrna, Lnp-s, Pf, Bivalent, 50 Mcg, IM, 12 yrs and above (Moderna) 03/06/2022 H1N1 2009 Influenza, IM 03/19/2009 Hepatitis B, 20+ yrs 09/22/2022, 10/26/2022 PPD 07/25/2004, 07/27/2006, 08/06/2008, 08/08/2009, 07/21/2011, 07/11/2013, 07/15/2015, 06/23/2016,07/20/2017, 05/10/2018, 04/25/2019, 04/29/2020, 09/19/2021, 09/22/2022 Pneumococcal Conjugate Vaccine, 20-valent ([id number]) 01/30/2022 Seasonal Influenza Virus Vaccine, Unspecified Formulation [...] 0 Misc. Devices (BENJAMIN ROLLING WALKER BASIC) MISC Rt HIP pain and imbalance 1 Each [...] after placing drops. 15 mL 11 Nyamyc [id number] UNIT/GM External Powder (Nystatin) Apply topically to affected area 2 times a day. Apply topically to dermatitis around breasts and abdominal folds as needed. 60 g 1 Calcium 600 1500 (600 Ca) MG Oral Tablet (Calcium Carbonate) TAKE 1 TABLET BY MOUTH DAILY 31 [id number] Albuterol Sulfate HFA 108 (90 Base) MCG/ACT [...] HCl 50 MG Oral Tablet (Desyrel) Take 1 Tablet by mouth at bedtime. buPROPion HCl ER (SR) 200 MG Oral Tablet Extended Release 12 Hour (Wellbutrin SR) Take 1 Tablet by mouth in the morning. In the morning.. QUEtiapine Fumarate 100 MG Oral Tablet (SEROquel) Take 1 Tablet by mouth in the morning and 1 Tablet before bedtime. No current facility-administered medications for this visit. Review of patient's allergies indicates: No Known Allergies OBJECTIVE: BP 112/72 | Pulse 60 | Temp 35.1 C (95.2 F) | Wt 107.7 kg (237 lb 6.4 oz) | LMP (LMP Unknown) |BMI 51.37 kg/m | BSA 2.08 m PHYSICAL EXAM: General: alert, healthy, no distress, well developed Neck: supple, short, no adenopathy, thyroid Not enlarged without nodularity Heart: regular rhythm and rate,No murmurs. Lungs: lungs clear to auscultation Extremities: no edema Left knee--no bruise, are pain left medial Gait--with support ambulates few steps, is afraid to walk ASSESSMENT/PLAN: Personal history of fall (Primary) - PHYSICAL THERAPY REFERRAL OP - Acetaminophen 500 MG Oral Tablet (Tylenol); one pill twice a day x 5 days then 1 tab every 4 hrs as needed for pain/fever Apply cold compress to affected area 2-3 timed /d 15 min each for 5 days, for symptomatic relief. Acute pain of left knee - PHYSICAL THERAPY REFERRAL OP - Acetaminophen 500 MG Oral Tablet (Tylenol); one pill twice a day x 5 days then 1 tab every 4 hrs as needed for pain/fever Fear of falling - PHYSICAL THERAPY REFERRAL OP Hypothyroidism due to acquired atrophy of thyroid TSH Results: Lab Results Component Value Date/Time TSH - [facility] 1.49 10/23/2022 08:25 AM TSH - [facility] 1.17 08/26/2022 03:27 PM TSH - [facility] 5.66 (H) 06/24/2022 07:57 AM TSH - [facility] 3.47 01/08/2020 12:15 PM TSH - [facility] 2.49 10/07/2018 02:31 PM TSH - [facility] 5.00 (H) 07/05/2018 12:22 PM Obesity hypoventilation syndrome (HCC) - PHYSICAL THERAPY REFERRAL OP Down's syndrome - PHYSICAL THERAPY REFERRAL OP Dementia due to medical condition with behavioral disturbance (HCC) - PHYSICAL THERAPY REFERRAL OP MICHI (obstructive sleep apnea) - PHYSICAL THERAPY REFERRAL OP Nocturnal hypoxia - PHYSICAL THERAPY REFERRAL OP Hypersomnolence - PHYSICAL THERAPY REFERRAL OP To let us know when she is [place] CPAP titration study Need for hepatitis B vaccination Dose 3 Need for RSV vaccination - RSVPreF3 Vac Recomb Adjuvanted 120 MCG/0.5ML Intramuscular Suspension Reconstituted; 0.5ml one dose Need for COVID-19 vaccine To get at pharmacy Follow Up: Return if symptoms worsen or fail to improve. (This note was completed using the dictation [...] with plan of care. Christine Dumont MD 03/30/2023 documented in this encounter Plan of Treatment Upcoming Encounters Date Type Department Care Team (Late st Contact Info) Description 04/27/2023 3:15 PM EST Office Visit Dental Hygiene, [place] [address] [place] [address] Reny Ruffin, [facility] [address] [place] [address] 06/22/2023 7:40 AM EST Laboratory Laboratory, [place] [address] [place] [id number] [place] [address] [place] [address] 06/28/2023 10:00 AM EDT Office Visit General Internal Medicine [facility] 200 [facility] [place], [place] [address] Christine Dumont MD 200 [facility] [place] [address] 09/14/2023 3:00 PM EDT Office Visit Nephrology, [facility] [address] [facility] [place] [address] Katlin Berry PA-C 200 [facility] [place] [address] 09/24/2023 2:40 PM EDT Office Visit General Internal Medicine [facility] 200 [facility] [place] [address] Christine Dumont MD 200 [facility] [place] [address] 10/26/2023 10:45 AM EDT Imaging Radiology [address] [employer] [place] [address] Scheduled Referrals Name Type Priority Associated Diagnoses Orde r Schedule PHYSICAL THERAPY REFERRAL OP Referral Within 10 days (routine) Personal history of fall Acute pain of left knee Fear of falling Obesity hypoventilation syndrome (HCC) Down's syndrome Dementia due to medical condition with behavioral disturbance (HCC) MICHI (obstructive sleep apnea) Nocturnal hypoxia Hypersomnolence Ordered: 03/30/2023 Health Maintenance Due Date Last Done Comments [...] Additional history exists CKD HGB USE SMARTSET 26473 10/24/202310/23, 10/23/2022, 03/27/2022, Additional history exists CKD PHOS USE SMARTSET 91984 10/24/2023 07/0 10/2022, 03/27/2022, 12/31/2021, Additional history [...] as of this encounter Visit Diagnoses Diagnosis Personal history of fall- Primary Acute pain of left knee Fear of falling Hypothyroidism due to acquired atrophy of thyroid Obesity hypoventilation syndrome (HCC) Obesity hypoventilation syndrome Down's syndrome Dementia due to medical condition with behavioral disturbance (HCC) Other persistent mental disorders due to conditions classified elsewhere MICHI (obstructive sleep apnea) Obstructive sleep apnea (adult) (pediatric) Nocturnal hypoxia Hypoxemia Hypersomnolence Hypersomnia, unspecified Need for hepatitis B vaccination Need for prophylactic vaccination and inoculation against viral hepatitis Need for RSV vaccination Need for prophylactic vaccination and inoculation against respiratory syncytial virus Need for COVID-19 vaccine documented in this encounter Advance Directives Documents on File Type Date Recorded Patient Organisational Psychologist Expl anation POLST 01/30/2022 [place] [facility] FOR LIFE-SUSTAINING TREATMENT Care Teams Progress Developer Relationship Specialty Start Date End Date Christine Dumont MD [address] [place] [address] PCP - General Internal Medicine 02/06/21 documented as of this encounter"
--- OUTSIDE RECORDS SUMMARY | 2023-04-24 14:30 | External Medical Summary | Summary of Care ---
Author Name Unknown Organization [facility] Address [address] [place] [address] Phone [phone] Care Team Providers Care Time Lock Expert Name Role Phone Christine Dumont MD Primary Care Provider [phone] Reason for Referral * Evaluate & Treat - Unlimited Visits (Within 10 days (routine)) - Authorized Specialty Diagnoses / Procedures Referred By Mable quigley Referred To Contact Orthopaedic Surgery / Orthopedics Diagnoses Personal history of fall Acute pain of left knee Hip pain, left Christine Dumont MD [address] [place] [address] Referral ID Status Reason Start Date Expiration Date Visits Requested Visits Authorized [id number] Authorized Specialty Services Required 3 [phone] [...] up after a recent trip to the [facility] ED r/t altered mental status. Encounter Details Date Type Department Care Team (Latest Contact Info) Description 04/05/2023 1:40 PM EST Office Visit General Internal Medicine [facility] [address] [place] [address] Christine Dumont MD [address] [place] [address] Excessive somnolence disorder*; Obesity hypoventilation syndrome (HCC); Down's syndrome; MICHI (obstructive sleep apnea); Personal history of fall; Acute pain of left knee; Hip pain, left; Hallucination, visual; Dementia due to medical condition with behavioral disturbance (HCC) Allergies No known active allergiesdocumented as of this encounter (statuses as of 04/05/2023) Medications Medication Sig Dispensed Refills Start Date [...] drops. 15 mL 11 08/25/2022 Active Nyamyc 164154 UNIT/GM External Powder (Nystatin)Indication s:Candidal dermatitis Apply [...] as of this encounter (statuses as of 04/05/2023) Active Problems Problem Noted Date Diagnosed Date [...] as of this encounter (statuses as of 04/05/2023) Resolved Problems Problem Noted Date Diagnosed Date [...] as of this encounter (statuses as of 04/05/2023) Immunizations Name Administration Dates Next Due COVID-19 mRNA, LNP-s, No Pre serve, 2-Dose Series (Moderna) 06/14/2020,05/10/2020 COVID-19, mRNA, LNP-s, PF, B ooster, 100mcg/0.5mg (Moderna) 09/26/2021,04/07/2021 Covid-19, Mrna, Lnp-s, Pf, B ivalent, 50 Mcg, IM, 12 yrs and above (Moderna) 03/06/2022 H1N1 2009 Influenza, IM 03/19/2009 Hepatitis B, 20+ yrs 03/30/2023,10/26/2022,09/22 PPD 09/22/2022, 2,04/29/2020,04/25,05/10/2018,07/20/2017,06/23/2016 ,07/15/2015,07/11/2013,07/21/2011,07/19,08/06/2008,07/27/2006 Pneumococcal Conjugate Vacci ne, 20-valent ([id number]) 01/30/2022 Seasonal Influenza Virus Vac cine, Unspecified [...] up after a recent trip to the [facility] ED r/t altered mental status. HPI: Patient [...] CPAP titration at the [facility] till 05/27/23 -seen in the ED 03/30/2023 [...] is a pleasant female accompanied by her block layer/s from the [facility]. Down syndrome, depression with anxiety, dementia with behavioral disturbance, history of auditory and visual hallucinations f/b Psychiatry at [facility] CKD 3 without hypertension, renal osteodystrophy followed by Nephrology. Dyslipidemia on [id number], inc 20mg 05/11, hypothyroidism, morbid obesity History [...] 04/29/2020, 09/19/2021, 09/22/2022 Pneumococcal Conjugate Vaccine, 20-valent ([id number]) 01/30/2022 Seasonal Influenza Virus Vaccine, Unspecified Formulation [...] wheelchair with leg rests 1 Each 0 [facility] Devices (BENJAMIN ROLLING WALKER BASIC) [facility] Rt HIP pain and imbalance 1 Each [...] after placing drops. 15 mL 11 Nyamyc [id number] UNIT/GM External Powder (Nystatin) Apply topically to affected area 2 times a day. Apply topically to dermatitis around breasts and abdominal folds as needed. 60 g 1 Calcium 600 1500 (600 Ca) MG Oral Tablet (Calcium Carbonate) TAKE 1 TABLET BY MOUTH DAILY 31 [id number] Albuterol Sulfate HFA 108 (90 Base) MCG/ACT [...] documented in this encounter Nursing Notes * Ayaz Thompson LPN - 04/05/2023 1:52 PM EST Chief Complaint Patient presents with Emergency Department Follow-Up The pt's aide stated that the pt is following up after a recent trip to the [facility] ED r/t altered mental status. documented in this encounter Plan of Treatment Upcoming Encounters Date Type Department Care Team (Late st Contact Info) Description 04/07/2023 2:00 PM EST Office Visit Orthopaedics [facility] [address] [place] [address] Ayaz Butler PA-C [address] [place] [address] 04/27/2023 3:15 PM EST Office Visit Dental Hygiene, [place] [address] [place], [place] [phone] Reny Ruffin, [facility] [address] [place], [place] [id number] 06/22/2023 7:40 AM EST Laboratory Laboratory, [place] [address] [place] [phone] [place] [address] [place] [address] 06/28/2023 10:00 AM EDT Office Visit General Internal Medicine [facility] [address] [place] [address] Christine Dumont MD [address] [place] [address] 09/14/2023 3:00 PM EDT Office Visit Nephrology, [facility] [address] [place] [address] Katlin Berry PA-C [address] [place] [address] 09/24/2023 2:40 PM EDT Office Visit General Internal Medicine [facility] [address] [place] [address] Christine Dumont MD [address] [place] [address] 10/26/2023 10:45 AM EDT Imaging Radiology [address] [place] [address] Scheduled Referrals Name Type Priority Associated Diagnoses [...] Additional history exists CKD HGB USE SMARTSET 30993 10/24/202310/23, 10/23/2022, 03/27/2022, Additional history exists CKD PHOS USE SMARTSET 69884 10/24/2023 07/0 10/2022, 03/27/2022, 12/31/2021, Additional history [...] Documents on File Type Date Recorded Patient Credit Risk Management Director Expl anation POLST 01/30/2022 [place] [facility] FOR LIFE-SUSTAINING TREATMENT Care Teams Time Lock Expert Relationship Specialty Start Date End Date Christine Dumont MD [address] [place] [address] PCP - General Internal Medicine 02/06/21 documented as of this encounter"
--- NOTE | 2023-04-24 15:24 | Emergency Department Note ---
Impression & Plan RSV (respiratory syncytial virus infection), Hypoxia, Cough, Shortness of breath ED Provider Note HISTORY OF PRESENT ILLNESS: Patient is a 52-year-old female presenting with shortness of breath. Patient's grain broker provides history given her intellectual disability. Patient reportedly was having a runny nose and a nonproductive cough starting 3 days ago. However, today she started having a cough productive of a clear white mucus and seem to be choking on her secretions. Slasher Tender reports that the patient turned blue in the face and they put a pulse ox on the patient and noted that her saturations were in the 70s. Reports that the patient was able to cough and clear her airway, but her saturations were still in the 50s, so they called 911. Patient was given a DuoNeb and route with EMS. She does not wear any supplemental oxygen at baseline. No reported fevers in the last 3 days. No DVT or PE history. She is not on any anticoagulation. ROS: as above PHYSICAL EXAM: Constitutional: Patient appears in no acute distress. HENT: Head: Normocephalic and atraumatic. Eyes: EOMI, PERRL Mouth/Throat: Mucous membranes moist. Neck: Trachea midline. Neck supple. Cardiovascular: RRR, No murmurs, rubs or gallops. Intact distal pulses. Pulmonary/Chest: No respiratory distress. Breath sounds clear and equal bilaterally. Coarse breath sounds bilaterally. Abdominal: Abdomen soft, no tenderness, rebound or guarding. Musculoskeletal: No edema, tenderness or deformity noted. Skin: Warm and dry. No rash, erythema, pallor or cyanosis Psychiatric: Appropriate mood and affect for situation. Neurological: Alert and keenly responsive. CN II-XII grossly intact, moving all extremities equally and fully. MDM: - Vitals signs showed hypotension and hypoxia. Started on 2L NC. - History obtained via patient's grain broker. Patient presents with cough and shortness of breath. Patient reportedly has had a nonproductive cough and runny nose for the last 3 days. Today she started having a productive cough and seemed to be choking on her secretions. Slasher Tender reports that patient's face turned blue and her oxygen saturations were in the 70s. They were able to clear her airway and her sats were in the 50s. Patient does not wear supplemental oxygen at baseline. No chest pain. - Chronic conditions affecting care: CKD stage 3; intellectual disability; hypothyroidism; HTN; HLD - Differential diagnoses include, but are not limited to: Congestive heart failure; acute coronary syndrome; COPD/asthma exacerbation; pulmonary edema; pulmonary embolism; pneumonia; pneumothorax; viral syndrome - Order placed for continuous cardiac monitoring. At this time, monitor showed rate of 72 bpm with normal sinus rhythm, per my interpretation. - External medical records reviewed. EMS run sheet was reviewed. Patient was hypoxic on their arrival and she was started on supplemental oxygen. - EKG interpreted by myself showed normal sinus rhythm. Rate 75 bpm. QTc 435. No acute ischemic changes. - Laboratory workup interpreted by myself showed slight leukopenia (WBC 4.72); thrombocytopenia (plt 122); normal PT/INR; baseline CKD; stable electrolytes; normal troponin; normal BNP - Viral panel positive for RSV - CXR negative for pneumonia, per my interpretation - UA negative for infection - VBG showed respiratory acidosis (pH 7.33; pCO2 70) - Patient given 10 mg IV decadron, given RSV and new oxygen requirement - Discussion was had with long term care phlebotomist about patient's case and need for admission - Hospitalist consulted for admission - Patient admitted to [facility] for further evaluation and management. ASSESSMENT AND PLAN: Diagnosis: cough; shortness of breath; RSV; hypoxia Plan: admit Past Med/Surg History Medical History (Updated 04/24/23 @ 17:29 by Ester Flynn MD) Post-menopausal Pharyngoesophageal dysphagia Osteoarthritis Obesity Mood disorder Memory loss Chronic kidney disease, stage 3 Hearing loss Hallucinations Hx of esophagitis Dry eyes Degenerative disc disease, lumbar Constipation Bursitis in one hip, unsure which side Asthma Arthritis GERD (gastroesophageal reflux disease) Cataracts, bilateral Sleep apnea no current device, getting tested again in 05/2023. Dementia Primary hypothyroidism Down syndrome Hypertension Hypercholesteremia Depression Hx of breast lump Surgical History (Updated 04/23/23 @ 14:03 by Shweta Caruso) Surgical history unknown Family History Unknown History not obtained Per new pt paperwork family history is "unknown" Social History Smoking Status: Unknown if ever smoked Second Hand Exposure: No; Do You Dip or Chew Tobacco: No; Hx Alcohol Use: No Hx Substance Use: No Preferred Language: Scottish Communication Ability: Effective Assistant Community Manager Required: No Beliefs That Will Affect Care: None Current Living Situation: Other Current Living Situation Comment: [facility] Feels Safe at Home: Yes Assistive Devices: Glasses Allergies Allergies Allergy/AdvReac Type Severity Reaction Status Date / Time No Known Allergies Allergy Verified 04/23/23 13:46 Home Meds Home Medications Medication Instructions Recorded Confirmed calcium carbonate 600 mg calcium 600 mg PO QAM 01/18/19 04/23/23 (1,500 mg) tablet donepezil 10 mg tablet 10 mg PO QPM 01/18/19 04/23/23 docusate sodium 100 mg capsule 100 mg PO BID 01/22/22 04/23/23 budesonide-formoterol HFA 160 2 inh inhalation BID 06/11/22 04/23/23 mcg-4.5 mcg/actuation aerosol inhaler (Symbicort) cyclosporine 0.05 % eye drops in a 1 drp OPB Q12H 06/11/22 04/23/23 dropperette (Restasis) zinc oxide-cod liver oil 40 % 1 applic topical BID 06/11/22 04/23/23 topical paste (Desitin) albuterol sulfate 90 mcg/actuation 2 puff inhalation Q4H PRN 12/03/22 04/23/23 aerosol inhaler (Ventolin HFA) COUGH/SHORT OF BREATH atorvastatin 40 mg tablet 40 mg PO QAM 12/03/22 04/23/23 cholecalciferol (vitamin D3) 25 25 mcg PO QAM 12/03/22 04/23/23 mcg (1,000 unit) capsule (Vitamin D3) ciclopirox 0.77 % topical gel 1 applic topical DAILY PRN 12/03/22 04/23/23 NEEDED famotidine 20 mg tablet 20 mg PO QAM 12/03/22 04/23/23 furosemide 20 mg tablet 20 mg PO DAILY PRN WT GAIN 3#/24 12/03/22 04/23/23 HRS OR 5#/48 HRS acetaminophen 500 mg tablet 500 mg PO Q4H PRN 03/30/23 04/23/23 (Tylenol Extra Strength) FEVER/SOTO/MENSTRUAL CRAMPS/PAIN aluminum-mag hydroxide-simethicone 10 ml PO TID PRN Indigestion 03/30/23 04/23/23 200 mg-200 mg-20 mg/5 mL oral susp bismuth subsalicylate 262 mg/15 mL 524 mg PO DIRECTED PRN 03/30/23 04/23/23 oral suspension (Pepto-Bismol) NAUSEA/VOMITING bupropion HCl 200 mg tablet,12 hr 200 mg PO QAM 03/30/23 04/23/23 sustained-release carbamide peroxide 6.5 % ear drops 5 drp otic (ear) UD 03/30/23 04/23/23 (Ear Wax Removal Drops) carboxymethylcellulose sodium 1 % 1 drp OPB DIRECTED PRN Dry Eyes 03/30/23 04/23/23 eye drops (Artificial Tears (carboxymethylcellulose)) dextromethorphan-guaifenesin 10 10 ml PO Q4H PRN Cough 03/30/23 04/23/23 mg-100 mg/5 mL oral syrup furosemide 20 mg tablet (Lasix) 20 mg PO QAM 03/30/23 04/23/23 hydrocortisone 1 % topical cream 1 applic topical TID PRN Rash 03/30/23 04/23/23 levothyroxine 137 mcg tablet 137 mcg PO QAM 03/30/23 04/23/23 loperamide 2 mg capsule 2 mg PO UD PRN Diarrhea 03/30/23 04/23/23 magnesium hydroxide 400 mg/5 mL 10 ml PO Q6H PRN Constipation 03/30/23 04/23/23 oral suspension (Milk of Magnesia) menthol 2.7 mg lozenges (Cough 2.7 mg PO Q4H PRN Cough 03/30/23 04/23/23 Drops) neomycin-bacitracn Zn-polymyx 3.5 1 applic topical BID PRN SMALL 03/30/23 04/23/23 mg-400 unit-5,000 unit/gram top CUTS/ABRASIONS oint (Triple Antibiotic) nystatin 100,000 unit/gram topical 1 applic topical BID PRN dermatitis 03/30/23 04/23/23 powder phenylephrine HCl 10 mg tablet 10 mg PO Q4H PRN COLD/RUNNY NOSE 03/30/23 04/23/23 (Sudafed PE) quetiapine 100 mg tablet 100 mg PO BID 03/30/23 04/23/23 trazodone 50 mg tablet 50 mg PO HS 03/30/23 04/23/23 fluoride (sodium) 1.1 % dental 1 applic dental BID 04/23/23 04/23/23 cream (Denta 5000 Plus) Results & Data (ED) Vital Signs Vital Signs - 24 hr 04/24/23 14:35 04/24/23 14:57 04/24/23 15:49 Temperature 37.1 C Temperature Source Oral Pulse Rate 79 77 74 Pulse Rate [Apical] Pulse Rhythm Regular Pulse Rhythm [Apical] Pulse Strength [Apical] Respiratory Rate 18 19 Respiratory Effort / Characteristics Respiratory Depth Respiratory Pattern Blood Pressure 98/56 L Blood Pressure [Right Arm] Blood Pressure Mean 70 Blood Pressure Mean [Right Arm] Blood Pressure Position [Right Arm] Pulse Oximetry 88 L 95 Oxygen Delivery Method Room Air Nasal Cannula Oxygen Flow Rate 2 Sepsis Recent Fever Within 48 Hours Yes Sepsis New/Unexplained Change in Mental Status No Sepsis Action Taken by Nursing No Action Required 04/24/23 17:07 Temperature 36.9 C Temperature Source Oral Pulse Rate Pulse Rate [Apical] 71 Pulse Rhythm Pulse Rhythm [Apical] Regular Pulse Strength [Apical] Normal Respiratory Rate 19 Respiratory Effort / Characteristics Non-Labored Spontaneous Respiratory Depth Normal Respiratory Pattern Regular Blood Pressure Blood Pressure [Right Arm] 125/65 Blood Pressure Mean Blood Pressure Mean [Right Arm] 85 Blood Pressure Position [Right Arm] Semi-fowlers Pulse Oximetry 97 Oxygen Delivery Method Nasal Cannula Oxygen Flow Rate Sepsis Recent Fever Within 48 Hours Sepsis New/Unexplained Change in Mental Status Sepsis Action Taken by Nursing Laboratory Data 04/24/23 14:58 04/24/23 14:58 Lab Results 04/24/23 04/24/23 04/24/23 Range/Units 14:57 14:58 16:00 WBC 4.72 L (4.8-10.8) K/ul RBC 4.14 L (4.20-5.40) M/uL Hgb 12.9 (12.0-16.0) g/dl Hct 40.3 (37.0-47.0) % MCV 97.3 (80.0-100.0) fL MCH 31.2 (25.0-34.0) pg MCHC 32.0 (32.0-36.0) g/dL RDW Std Deviation 48.4 H (36.4-46.3) fL RDW Coeff of Matt 13.4 (11.5-14.5) % Plt Count 122 L (130-400) K/uL MPV 10.5 (9.4-12.4) fL Immature Gran % (Auto) 1.3 % Neut % (Auto) 42.6 % Lymph % (Auto) 36.4 % [place] % (Auto) 18.0 % Eos % (Auto) 1.1 % Baso % (Auto) 0.6 % Neut # (Auto) 2.01 (1.40-6.50) K/uL Lymph # (Auto) 1.72 (1.20-3.40) K/uL [place] # (Auto) 0.85 H (0.11-0.59) K/uL Eos # (Auto) 0.05 (0.00-0.50) K/uL Baso # (Auto) 0.03 (0.00-0.20) K/uL Immature Gran # (Auto) 0.06 (0.01-0.20) K/uL PT 11.1 (9.0-12.0) Seconds INR 1.0 (0.9-1.1) VBG pH 7.33 L (7.36-7.41) VBG pCO2 70 H (38-50) mmHg VBG pO2 34 mmHg VBG HCO3 37 mmol/L VBG O2 Saturation < 60.0 % VBG Base Excess 8.3 mEq/L Sodium 140 (136-145) mmol/L Potassium 4.1 (3.5-5.1) mmol/L Chloride 101 (98-107) mmol/L Carbon Dioxide 32 (21-32) mmol/L Anion Gap 7 (3-11) BUN 20 (6-23) mg/dl Creatinine 1.36 H (0.6-1.2) mg/dl Est Cr Clr Drug Dosing 55.9 ml/min Est GFR ( Amer) 51.0 ml/min Est GFR (Non-Af Amer) 44.0 ml/min BUN/Creatinine Ratio 14.7 (10-20) Glucose 88 (70-99(Fasting)) mg/dl Calcium 8.5 L (8.6-10.3) mg/dl Magnesium 1.7 (1.7-2.4) mg/dl Total Bilirubin 0.5 (0.2-1.0) mg/dl AST 18 (13-39) U/L ALT 10 (7-52) U/L Alkaline Phosphatase 69 (34-104) U/L Troponin I High Sens 11.1 (0-14) pg/ml B-Natriuretic Peptide 50 (0-100) pg/ml Total Protein 6.4 (6.0-8.3) gm/dl Albumin 3.6 (3.4-5.0) gm/dl Globulin 2.8 (2.5-4.0) gm/dl Albumin/Globulin Ratio 1.3 (0.9-2) Urine Color Yellow Urine Appearance Clear (Clear) Urine pH 5.0 (4.5-7.5) Ur Specific [place] 1.012 (1.000-1.030) Urine Protein Negative (Negative) Urine Glucose (UA) Negative (Negative) Urine Ketones Negative (Negative) Urine Blood Negative (Negative) Urine Nitrite Negative (Negative) Urine Bilirubin Negative (Negative) Urine Urobilinogen Negative (Negative) Ur Leukocyte Esterase Negative (Negative) Adenovirus (PCR) Not Detected (NotDetected) B. pertussis DNA (PCR) Not Detected (NotDetected) B.parapertussis DNA PCR Not Detected (NotDetected) C. pneumoniae DNA (PCR) Not Detected (NotDetected) Coronavirus OC43 (PCR) Not Detected (NotDetected) Coronavirus HKU1 (PCR) Not Detected (NotDetected) Coronavirus 229E (PCR) Not Detected (NotDetected) SARS-CoV-2 (PCR) Not Detected (NotDetected) Coronavirus NL63 (PCR) Not Detected (NotDetected) Human Metapneumovir PCR Not Detected (NotDetected) Influenza Type A (PCR) Not Detected (NotDetected) Influenza Type B (PCR) Not Detected (NotDetected) M. pneumoniae (PCR) Not Detected (NotDetected) Parainfluenza 1 (PCR) Not Detected (NotDetected) Parainfluenza 2 (PCR) Not Detected (NotDetected) Parainfluenza 3 (PCR) Not Detected (NotDetected) Parainfluenza 4 (PCR) Not Detected (NotDetected) RSV (PCR) DETECTED A* (NotDetected) Entero/Rhino (PCR) Not Detected (NotDetected) Administered Medications Discontinued Medications Dexamethasone Sodium Phosphate (DexamethasonePf 10 Mg/Ml Vial) 10 mg IV NOW ONE Stop: 04/24/23 16:12 Last Admin: 04/24/23 16:22 Dose: 10 mg Documented By: DAVIAN Imaging Data Radiologist's Impression: Chest X-Ray 04/24/23 14:41 XR chest 1V portable CLINICAL HISTORY: Dyspnea. COMPARISON STUDY: Chest radiograph and chest CT February 02, 2023. FINDINGS: Lung volumes are normal. Lungs are clear. There is no pneumothorax or pleural effusion. Cardiac size is normal. Mediastinal contours are normal. There is no evidence for pulmonary edema. IMPRESSION: No acute cardiopulmonary findings. No change in appearance of the chest. ACT 112: Negative or not required by law. Electronically signed by: Darryl Hays M.D. 04/24/2023 4:16 PM Discharge Plan Visit Data Chief Complaint: Cough Stated Complaint: RESP DISTRESS, COLD SX ED Provider: Ester Flynn Discharge Problem: RSV (respiratory syncytial virus infection), Hypoxia, Cough, Shortness of breath Forms Stand Alone Forms: [facility] Prescriptions Prescriptions: No Action calcium carbonate 600 mg calcium (1,500 mg) tablet 600 mg PO QAM donepezil 10 mg tablet 10 mg PO QPM Rx Instructions: 5pm cyclosporine [Restasis] 0.05 % dropperette 1 drp OPB Q12H budesonide-formoterol [Symbicort] 160-4.5 mcg/actuation HFA aerosol inhaler 2 inh INHALATION BID Rx Instructions: 2 puffs am and 2 at bedtime Desitin 40 % paste 1 applic TOPICAL BID Rx Instructions: APPLY TO [place] TWICE DAILY atorvastatin 40 mg tablet 40 mg PO QAM albuterol sulfate [Ventolin HFA] 90 mcg/actuation HFA aerosol inhaler 2 puff inhalation Q4H PRN (Reason: COUGH/SHORT OF BREATH) ciclopirox 0.77 % gel 1 applic topical DAILY PRN (Reason: NEEDED) Rx Instructions: APPLY TO WEB SPACES BID NEEDED. cholecalciferol (vitamin D3) [Vitamin D3] 25 mcg (1,000 unit) Capsule 25 mcg PO QAM famotidine 20 mg tablet 20 mg PO QAM furosemide 20 mg tablet 20 mg PO DAILY PRN (Reason: WT GAIN 3#/24 HRS OR 5#/48 HRS) fluoride (sodium) [Denta 5000 Plus] 1.1 % Cream 1 applic DENTAL BID levothyroxine 137 mcg tablet 137 mcg PO QAM Triple Antibiotic 3.5mg-400 unit- 5,000 unit/gram Ointment 1 applic TOPICAL BID PRN (Reason: SMALL CUTS/ABRASIONS) loperamide [Imodium] 2 mg Capsule 2 mg PO UD MDD 4 CAPS/24 HOURS PRN (Reason: Diarrhea) Rx Instructions: TAKE 2 CAPS AFTER 1ST LOOSE STOOL, THEN 1 CAP AFTER EACH LOOSE STOOL. MAX 4 CAPS/24 HOURS trazodone 50 mg tablet 50 mg PO HS dextromethorphan-guaifenesin [Robitussin-DM] 10-100 mg/5 mL Syrup 10 ml PO Q4H MDD 3 DOSES/24 HOURS PRN (Reason: Cough) quetiapine 100 mg tablet 100 mg PO BID acetaminophen [Tylenol Extra Strength] 500 mg Tablet 500 mg PO Q4H MDD 8 TABS/24 HOURS PRN (Reason: FEVER/SOTO/MENSTRUAL CRAMPS/PAIN) magnesium hydroxide [Milk of Magnesia] 400 mg/5 mL Suspension 10 ml PO Q6H PRN (Reason: Constipation) Rx Instructions: MIX WITH 8 OZ. WATER. hydrocortisone 1 % Cream 1 applic TOPICAL TID PRN (Reason: Rash) bismuth subsalicylate [Pepto-Bismol] 262 mg/15 mL Suspension 524 mg PO DIRECTED MDD 16 TBSP/24 HOURS PRN (Reason: NAUSEA/VOMITING) Rx Instructions: GIVE 2 TBSP EVERY 1/2 HR. NEEDED. Ear Wax Removal Drops 6.5 % Drops 5 drp OTIC (EAR) UD Rx Instructions: MONTHLY-INSTILL 5 DROPS BID BOTH EARS FOR 4 DAYS. LAY ON SIDE FOR 5 MIN AFTER PLACING DROPS. furosemide [Lasix] 20 mg Tablet 20 mg PO QAM alum-mag hydroxide-simeth [Mylanta] 200-200-20 mg/5 mL Suspension 10 ml PO TID PRN (Reason: Indigestion) nystatin 100,000 unit/gram Powder 1 applic TOPICAL BID PRN (Reason: dermatitis) Rx Instructions: UNDER BREASTS, ABD FOLDS bupropion HCl 200 mg tablet sustained-release 12 hr 200 mg PO QAM phenylephrine HCl [Sudafed PE] 10 mg Tablet 10 mg PO Q4H MDD 6 TABS/24 HOURS PRN (Reason: COLD/RUNNY NOSE) Cough Drops 2.7 mg Lozenge 2.7 mg PO Q4H PRN (Reason: Cough) Artificial Tears (cmc) 1 % Drops 1 drp OPB DIRECTED PRN (Reason: Dry Eyes) docusate sodium 100 mg Capsule 100 mg PO BID Referrals Referrals: Christine Dumont MD [Primary Care Provider] -
[2023-04-24 15:41] LABS: Base Excess VBG 8.3 mEq/L; HCO3 VBG 37 mmol/L; Oxygen Saturation VBG < 60.0 %; PCO2 VBG 70 mmHg (38-50); PO2 VBG 34 mmHg; pH VBG 7.33 (7.36-7.41)
[2023-04-24 15:48] LABS: Basophils # (auto) 0.03 K/uL (0.00-0.20); Basophils % (auto) 0.6 %; Eosinophils # (auto) 0.05 K/uL (0.00-0.50); Eosinophils % (auto) 1.1 %; Hematocrit (blood only) 40.3 % (37.0-47.0); Hemoglobin 12.9 g/dl (12.0-16.0); Immature Granulocytes # (auto) 0.06 K/uL (0.01-0.20); Immature Granulocytes % (auto) 1.3 %; Lymphocytes # (auto) 1.72 K/uL (1.20-3.40); Lymphocytes % (auto) 36.4 %; Mean Corpuscular Hemoglobin 31.2 pg (25.0-34.0); Mean Corpuscular Volume 97.3 fL (80.0-100.0); Mean Platelet Volume 10.5 fL (9.4-12.4); Monocytes # (auto) 0.85 K/uL (0.11-0.59); Neutrophils # (auto) 2.01 K/uL (1.40-6.50); Neutrophils % (auto) 42.6 %; Platelet Count 122 K/uL (130-400); RDW Coefficient of Variation 13.4 % (11.5-14.5); RDW Standard Deviation 48.4 fL (36.4-46.3); Red Blood Count 4.14 M/uL (4.20-5.40); White Blood Count 4.72 K/ul (4.8-10.8)
[2023-04-24 15:52] LABS: Prothrombin Time 11.1 Seconds (9.0-12.0)
[2023-04-24 15:57] LABS: Adenovirus PCR Not Detected (NotDetected); Bordetella parapertussis PCR Not Detected (NotDetected); Bordetella pertussis PCR Not Detected (NotDetected); Chlamydia pneumoniae PCR Not Detected (NotDetected); Coronavirus 229E PCR Not Detected (NotDetected); Coronavirus CoV-2 (COVID19)PCR Not Detected (NotDetected); Coronavirus HKU1 PCR Not Detected (NotDetected); Coronavirus NL63 PCR Not Detected (NotDetected); Coronavirus OC43PCR Not Detected (NotDetected); Human Metapneumovirus PCR Not Detected (NotDetected); Influenza A PCR Not Detected (NotDetected); Influenza B PCR Not Detected (NotDetected); Mycoplasma pneumoniae PCR Not Detected (NotDetected); Parainfluenza Virus 1 PCR Not Detected (NotDetected); Parainfluenza Virus 2 PCR Not Detected (NotDetected); Parainfluenza Virus 3 PCR Not Detected (NotDetected); Parainfluenza Virus 4 PCR Not Detected (NotDetected); Rhinovirus/Enterovirus PCR Not Detected (NotDetected)
[2023-04-24 16:04] LABS: Respiratory Syncytial VirusPCR DETECTED (NotDetected)
[2023-04-24 16:04] LABS: Albumin Globulin Ratio 1.3 (0.9-2); Albumin Level 3.6 gm/dl (3.4-5.0); BUN Creatinine Ratio 14.7 (10-20); Bilirubin,Total 0.5 mg/dl (0.2-1.0); Calcium 8.5 mg/dl (8.6-10.3); Creatinine Clr Calc Pharmacy 55.9 ml/min; Globulin 2.8 gm/dl (2.5-4.0); Magnesium 1.7 mg/dl (1.7-2.4); Potassium 4.1 mmol/L (3.5-5.1); Total Protein 6.4 gm/dl (6.0-8.3)
[2023-04-24 16:06] LABS: Appearance Urine Clear (Clear); Bilirubin Urine Negative (Negative); Blood Urine Negative (Negative); Color Urine Yellow; Glucose Urine UA Negative (Negative); Ketones Urine Negative (Negative); Leukocyte Esterase Urine Negative (Negative); Nitrite Urine Negative (Negative); Protein Urine Negative (Negative); Specific Gravity Urine 1.012 (1.000-1.030); Urobilinogen Urine Negative (Negative)
[2023-04-24 16:11] LABS: Troponin I High Sensitivity 11.1 pg/ml (0-14)
[2023-04-24] MEDS ORDERED: dexAMETHasone**PF** 10 MG/ML VIAL IV ONE (16:11)
--- NOTE | 2023-04-24 16:19 | XRay Report ---
XR chest 1V portable CLINICAL HISTORY: Dyspnea. COMPARISON STUDY: Chest radiograph and chest CT February 02, 2023. FINDINGS: Lung volumes are normal. Lungs are clear. There is no pneumothorax or pleural effusion. Car diac size is normal. Mediastinal contours are normal. There is no evidence for pulmonary edema. IMPRESSION: No acute cardiopulmonary findings. No change in appearance of the chest. ACT 112: Negative or not required by law. Electronically signed by: Darryl Hays M.D. 04/24/2023 4:16 PM
--- NOTE | 2023-04-24 17:57 | History & Physical Report ---
Date of Service April 24, 2023 Assessment & Plan (1) RSV (respiratory syncytial virus infection): (2) Acute respiratory failure with hypoxia and hypercarbia: (3) Reactive airway disease: (4) Obesity hypoventilation syndrome: Plan: Patient is a 52-year-old female with PMH Down's syndrome, CKD III, dyslipidemia, suspected MICHI, obesity hypoventilation syndrome, reactive airway disease, obesity, chronic diastolic dysfunction, depression, anxiety, hallucinations, presented to ER with complaint of rhinorrhea, cough x 3 days with SOB today and home pulse ox in 70s% on RA. Denies fever In ER Afebrile, P: 79, RR: 18, BP 98/56 up to 140/72, 88% on room air up to 95% on 2 L nasal cannula CXR: No acute cardiopulmonary findings + RSV on [employer] respiratory panel VBG: pH: 7.3, pCO2: 70, HCO3: 37 In ER given dexamethasone 10 mg IV Obtain ABG to further assess CO2 Currently doing well on nasal cannula Will start scheduled DuoNebs Supplemental oxygen as needed with goal 88-92%. Avoid over oxygenation Solu-Medrol every 8 hours Mucinex Continue home inhalers Attempt BiPAP at bedtime patient will tolerate If no improvement consider pulmonology consult Patient to have formal sleep study however has been unable to cooperate/tolerate in past CBC, BMP in a.m. (5) Chronic kidney disease, stage 3: Plan: Cr: 1.36. Baseline 1.4-1.5 per outpatient chart review Monitor renal functions, avoid nephrotoxic agents when possible (6) Diastolic dysfunction: Plan: Chronic diastolic dysfunction. Grade 2 diastolic dysfunction on echo 2021 Appears euvolemic Continue Lasix every 2 days (7) Down syndrome: Plan: [facility] Has nurse caregiver (8) Mood disorder: Plan: History of depression, anxiety, hallucinations Continue bupropion, quetiapine, trazodone (9) Dementia: Plan: Continue donezepil (10) Hypothyroidism: Plan: Continue levothyroxine DVT Prophylaxis Lovenox SQ Full Code as per POLST form Follows with Dr Dumont for routine care Pt was seen and care coordinated with Dr Moore. See addendum History of Present Illness Chief Complaint: cough Primary Care Provider: Christine Dumotn MD Patient is a 52-year-old female with PMH Down's syndrome, CKD III, dyslipidemia, suspected MICHI, obesity hypoventilation syndrome, obesity, chronic diastolic dysfunction, depression, anxiety, hallucinations, presented to ER with complaint of cough x 3 days. Limited history obtained from patient secondary to cognitive status. Most of history obtained from nurse caregiver and chart review. Reports 3 days ago started with rhinorrhea, mild cough. Did not have any fevers. Reports did home COVID-19 test yesterday and 2 days ago which were negative. States today cough worsened and is productive of clear phlegm. This afternoon had coughing episode and seemed SOB and checked pulse ox and was reported in 70's on room air. [facility] patient seems to be wheezing this afternoon. Decreased appetite today. Denies any known ill contacts in house. Caregiver reports patient has suspected MICHI however has not been able to complete sleep study. [facility] patient will ambulate with walker but has fear of falling so is reluctant to ambulate a lot. Denies fever/chills, diaphoresis, N/V/D/C, SOTO, syncope, CP, SOB, otalgia, abdominal pain, extremity weakness, increased extremity edema, rashes, urinary symptoms. Allergies Allergy/AdvReac Type Severity Reaction Status Date / Time No Known Allergies Allergy Verified 04/23/23 13:46 Home Medications Medication Instructions Recorded Confirmed Type calcium carbonate 600 mg calcium 600 mg PO QAM 01/18/19 04/24/23 History (1,500 mg) tablet donepezil 10 mg tablet 10 mg PO QPM 01/18/19 04/24/23 History docusate sodium 100 mg capsule 100 mg PO BID 01/22/22 04/24/23 History budesonide-formoterol HFA 160 2 inh inhalation BID 06/11/22 04/24/23 History mcg-4.5 mcg/actuation aerosol inhaler (Symbicort) cyclosporine 0.05 % eye drops in a 1 drp OPB Q12H 06/11/22 04/24/23 History dropperette (Restasis) zinc oxide-cod liver oil 40 % 1 applic topical BID 06/11/22 04/24/23 History topical paste (Desitin) albuterol sulfate 90 mcg/actuation 2 puff inhalation Q4H PRN 12/03/22 04/24/23 History aerosol inhaler (Ventolin HFA) COUGH/SHORT OF BREATH atorvastatin 40 mg tablet 40 mg PO QAM 12/03/22 04/24/23 History cholecalciferol (vitamin D3) 25 25 mcg PO QAM 12/03/22 04/24/23 History mcg (1,000 unit) capsule (Vitamin D3) ciclopirox 0.77 % topical gel 1 applic topical DAILY PRN 12/03/22 04/24/23 History NEEDED famotidine 20 mg tablet 20 mg PO QAM 12/03/22 04/24/23 History furosemide 20 mg tablet 20 mg PO DAILY PRN WT GAIN 3#/24 12/03/22 04/24/23 History HRS OR 5#/48 HRS acetaminophen 500 mg tablet 500 mg PO Q4H PRN 03/30/23 04/24/23 History (Tylenol Extra Strength) FEVER/SOTO/MENSTRUAL CRAMPS/PAIN aluminum-mag hydroxide-simethicone 10 ml PO TID PRN Indigestion 03/30/23 04/24/23 History 200 mg-200 mg-20 mg/5 mL oral susp bismuth subsalicylate 262 mg/15 mL 524 mg PO DIRECTED PRN 03/30/23 04/24/23 History oral suspension (Pepto-Bismol) NAUSEA/VOMITING bupropion HCl 200 mg tablet,12 hr 200 mg PO QAM 03/30/23 04/24/23 History sustained-release carbamide peroxide 6.5 % ear drops 5 drp otic (ear) UD 03/30/23 04/24/23 History (Ear Wax Removal Drops) carboxymethylcellulose sodium 1 % 1 drp OPB DIRECTED PRN Dry Eyes 03/30/23 04/24/23 History eye drops (Artificial Tears (carboxymethylcellulose)) dextromethorphan-guaifenesin 10 10 ml PO Q4H PRN Cough 03/30/23 04/24/23 History mg-100 mg/5 mL oral syrup furosemide 20 mg tablet (Lasix) 20 mg PO Q2D 03/30/23 04/24/23 History hydrocortisone 1 % topical cream 1 applic topical TID PRN Rash 03/30/23 04/24/23 History levothyroxine 137 mcg tablet 137 mcg PO QAM 03/30/23 04/24/23 History loperamide 2 mg capsule 2 mg PO UD PRN Diarrhea 03/30/23 04/24/23 History magnesium hydroxide 400 mg/5 mL 10 ml PO Q6H PRN Constipation 03/30/23 04/24/23 History oral suspension (Milk of Magnesia) menthol 2.7 mg lozenges (Cough 2.7 mg PO Q4H PRN Cough 03/30/23 04/24/23 History Drops) neomycin-bacitracn Zn-polymyx 3.5 1 applic topical BID PRN SMALL 03/30/23 04/24/23 History mg-400 unit-5,000 unit/gram top CUTS/ABRASIONS oint (Triple Antibiotic) nystatin 100,000 unit/gram topical 1 applic topical BID PRN dermatitis 03/30/23 04/24/23 History powder phenylephrine HCl 10 mg tablet 10 mg PO Q4H PRN COLD/RUNNY NOSE 03/30/23 04/24/23 History (Sudafed PE) quetiapine 100 mg tablet 100 mg PO BID 03/30/23 04/24/23 History trazodone 50 mg tablet 50 mg PO HS 03/30/23 04/24/23 History fluoride (sodium) 1.1 % dental 1 applic dental BID 04/23/23 04/24/23 History cream (Denta 5000 Plus) Past Med/Surg History Medical History (Updated 04/24/23 @ 19:21 by Abida Jansen PA-C) Diastolic dysfunction Hypothyroidism Post-menopausal Pharyngoesophageal dysphagia Osteoarthritis Obesity Mood disorder Memory loss Chronic kidney disease, stage 3 Hearing loss Hallucinations Hx of esophagitis Dry eyes Degenerative disc disease, lumbar Constipation Bursitis in one hip, unsure which side Asthma Arthritis GERD (gastroesophageal reflux disease) Cataracts, bilateral Sleep apnea no current device, getting tested again in 05/2023. 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 Required: No Beliefs That Will Affect Care: None Current Living Situation: Other Current Living Situation Comment: [facility] Feels Safe at Home: Yes Assistive Devices: Glasses Review of Systems Review of Systems: All systems reviewed & are unremarkable except as noted in HPI & below Physical Exam Physical Exam: General: no acute distress on 2L O2 via NC, obese Head: normocephalic, atraumatic Eyes: PERRL, EOM's intact, conjunctiva non-injected, anicteric ENT: normal inspection external ears, nose, mucous membranes moist Neck: supple, trachea midline Lungs: no respiratory distress on current 2L oxygen via NC, +cough, +wheezing, rhonchi scattered throughout CV: RRR, no murmur, trace pretibial edema Abd: protuberant, normal BS, soft, non-tender Ext: no cyanosis, no calf tenderness Neuro: Alert, oriented x 2, normal affect Skin: warm, dry Results & Data Results & Data Vital Signs (Past 12 Hours) Vital Signs Temp Pulse Pulse Resp BP BP Pulse Ox 04/24/23 17:07 36.9 C 71 19 125/65 97 04/24/23 15:49 74 04/24/23 14:57 77 19 95 04/24/23 14:35 37.1 C 79 18 98/56 L 88 L O2 Del Method O2 Flow Rate 04/24/23 17:07 Nasal Cannula 04/24/23 15:49 04/24/23 14:57 Nasal Cannula 2 04/24/23 14:35 Room Air Laboratory Results Short CBC 04/24/23 Range/Units 14:58 WBC 4.72 L (4.8-10.8) K/ul Hgb 12.9 (12.0-16.0) g/dl Hct 40.3 (37.0-47.0) % Plt Count 122 L (130-400) K/uL BMP 04/24/23 14:58 Sodium 140 Potassium 4.1 Chloride 101 Carbon Dioxide 32 BUN 20 Creatinine 1.36 H Glucose 88 Calcium 8.5 L Liver Function 04/24/23 Range/Units 14:58 Total Bilirubin 0.5 (0.2-1.0) mg/dl AST 18 (13-39) U/L ALT 10 (7-52) U/L Alkaline Phosphatase 69 (34-104) U/L Albumin 3.6 (3.4-5.0) gm/dl Urine 04/24/23 Range/Units 16:00 Urine Color Yellow Urine Appearance Clear (Clear) Urine pH 5.0 (4.5-7.5) Ur Specific Cherry 1.012 (1.000-1.030) Urine Protein Negative (Negative) Urine Glucose (UA) Negative (Negative) Diagnostic Findings Chest X-Ray 04/24/23 14:41 XR chest 1V portable CLINICAL HISTORY: Dyspnea. COMPARISON STUDY: Chest radiograph and chest CT February 02, 2023. FINDINGS: Lung volumes are normal. Lungs are clear. There is no pneumothorax or pleural effusion. Cardiac size is normal. Mediastinal contours are normal. There is no evidence for pulmonary edema. IMPRESSION: No acute cardiopulmonary findings. No change in appearance of the chest. ACT 112: Negative or not required by law. Electronically signed by: Darryl Hays M.D. 04/24/2023 4:16 PM Supervising Physician Co-Signing Physician Notes Pt seen and examined by myself, Elvia Moore MD on the day of service. Care was coordinated with Abida Jansen PA-C. 52yoF with PMHx significant for intellectual disability admitted with acute hypoxic respiratory failure in the setting of an RSV infection. Poosible dx of MICHI. Chest xray with no acute findings, no pneumonia. On exam, noted scattered wheezes with coarseness bilaterally. Supportive treatment, duonebs, mucinex, oxygen supplementation as needed. Bipap as tolerated. Otherwise as above. (3) Reactive airway disease Asthma complication type: with acute exacerbation Asthma persistence: unspecified Asthma severity: unspecified severity Qualified Code(s): J45.901 - Unspecified asthma with (acute) exacerbation
[2023-04-24] MEDS ORDERED: ALBUT/IPRATROP 3MG/0.5MG NEB 3 ML VIAL NEB STA (18:14)
[2023-04-24] MEDS ORDERED: MAGNESIUM HYDROXIDE SUSP 30 ML UDC PO PRN (19:47)
[2023-04-24] MEDS ORDERED: ONDANSETRON INJ 2 MG/ML 2 ML VIAL IV PRN (19:47)
[2023-04-24] MEDS ORDERED: POLYETHYLENE (MIRALAX) 17 GM PACK PO PRN (19:47)
[2023-04-24] MEDS ORDERED: ACETAMINOPHEN 325 MG TAB PO PRN (19:47)
[2023-04-24 20:04] LABS: Base Excess ABG 7.5 mEq/L (-9-1.8); HCO3 ABG 34 mmol/L (19-24); Oxygen Saturation ABG 95.3 % (90-95); PCO2 ABG 55 mmHg (35-46); PO2 ABG 70 mmHg (80-95)
[2023-04-24] MEDS ORDERED: ARTIFICIAL TEARS OP PRN (20:15)
[2023-04-24 20:43] LABS: Allen Test Pos (Pos)
[2023-04-24] MEDS: ALBUT/IPRATROP 3MG/0.5MG NEB 3 ML VIAL NEB SCH (20:57)
[2023-04-24] MEDS: FLUTICASONE/VILANTEROL 200/25MCG 14 PUFFS/INHALER INH SCH (22:15)
[2023-04-24] MEDS: guaiFENesin 600 MG TABCR PO SCH (22:16)
[2023-04-24] MEDS: QUEtiapine FUMARATE 100 MG TABLET PO SCH (22:17)
[2023-04-24] MEDS: DOCUSATE SODIUM 100 MG CAP PO SCH (22:18)
[2023-04-24] MEDS: traZODone HCL 50 MG TAB PO SCH (22:22)
[2023-04-24] MEDS: DONEPEZIL HCL 10 MG TAB PO SCH (22:22)
[2023-04-24] MEDS: ENOXAPARIN INJ 40 MG/0.4 ML SYR SQ SCH (22:40)
[2023-04-25 04:30] LABS: Basophils # (auto) 0.02 K/uL (0.00-0.20); Basophils % (auto) 0.4 %; Hematocrit (blood only) 39.8 % (37.0-47.0); Hemoglobin 12.7 g/dl (12.0-16.0); Immature Granulocytes # (auto) 0.16 K/uL (0.01-0.20); Immature Granulocytes % (auto) 3.6 %; Lymphocytes # (auto) 1.13 K/uL (1.20-3.40); Lymphocytes % (auto) 25.2 %; Mean Corpuscular Hemoglobin 31.1 pg (25.0-34.0); Mean Corpuscular Hgb Conc 31.9 g/dL (32.0-36.0); Mean Corpuscular Volume 97.3 fL (80.0-100.0); Mean Platelet Volume 10.4 fL (9.4-12.4); Monocytes # (auto) 0.11 K/uL (0.11-0.59); Monocytes % (auto) 2.5 %; Neutrophils # (auto) 3.06 K/uL (1.40-6.50); Neutrophils % (auto) 68.3 %; Platelet Count 124 K/uL (130-400); RDW Coefficient of Variation 13.2 % (11.5-14.5); RDW Standard Deviation 47.2 fL (36.4-46.3); Red Blood Count 4.09 M/uL (4.20-5.40); White Blood Count 4.48 K/ul (4.8-10.8)
[2023-04-25 04:39] LABS: BUN Creatinine Ratio 16.6 (10-20); Calcium 8.6 mg/dl (8.6-10.3); Creatinine Clr Calc Pharmacy 52.4 ml/min; Est GFR (African American) 47.2 ml/min; Est GFR (Non-African American) 40.7 ml/min; Potassium 4.7 mmol/L (3.5-5.1)
[2023-04-25] MEDS: LEVOTHYROXINE SODIUM 137 MCG TABLET PO SCH (06:45)
[2023-04-25] MEDS ORDERED: methylPREDNISolone 40 MG in SYRINGE 0 ML IV SCH (07:00)
[2023-04-25] MEDS: ALBUT/IPRATROP 3MG/0.5MG NEB 3 ML VIAL NEB SCH ×4 (07:30→20:11)
[2023-04-25] MEDS: DOCUSATE SODIUM 100 MG CAP PO SCH ×2 (12:30→20:42)
[2023-04-25] MEDS: ATORVASTATIN 40 MG TAB PO SCH (12:30)
[2023-04-25] MEDS: CHOLECALCIFEROL 1,000 UNITS 25 MCG TAB PO SCH (12:30)
[2023-04-25] MEDS: FAMOTIDINE 20 MG TAB PO SCH (12:30)
[2023-04-25] MEDS: CALCIUM CARBONATE 1250MG TAB PO SCH (12:31)
[2023-04-25] MEDS: FUROSEMIDE 20 MG TAB PO SCH (12:31)
[2023-04-25] MEDS: QUEtiapine FUMARATE 100 MG TABLET PO SCH ×2 (12:31→20:43)
[2023-04-25] MEDS: guaiFENesin 600 MG TABCR PO SCH ×2 (12:32→20:43)
[2023-04-25] MEDS: buPROPion SR 100 MG TABCR PO SCH (12:32)
[2023-04-25] MEDS: FLUTICASONE/VILANTEROL 200/25MCG 14 PUFFS/INHALER INH SCH (12:33)
--- NOTE | 2023-04-25 14:41 | Hospitalist Progress Note ---
Date of Service April 25, 2023 Assessment & Plan (1) RSV (respiratory syncytial virus infection): (2) Acute respiratory failure with hypoxia and hypercarbia: (3) Reactive airway disease: (4) Obesity hypoventilation syndrome: Plan: Patient is a 52-year-old female with PMH Down's syndrome, CKD III, dyslipidemia, suspected MIHCI, obesity hypoventilation syndrome, reactive airway disease, obesity, chronic diastolic dysfunction, depression, anxiety, hallucinations, presented to ER with complaint of rhinorrhea, cough x 3 days with SOB RSV infection Patient's presents from [facility] with rhinorrhea, cough for 3 days CXR: No acute cardiopulmonary findings + RSV on [employer] respiratory panel Continue on scheduled DuoNebs Supplemental oxygen as needed with goal 88-92%. Discussed with nurse to wean down oxygen as tolerated to keep SpO2 around 90 to 92% Supportive care for cough. (5) Chronic kidney disease, stage 3: Plan: Cr: 1.36. Baseline 1.4-1.5 per outpatient chart review Similar to her baseline. Avoid nephrotoxic agent. (6) Diastolic dysfunction: Plan: Chronic diastolic dysfunction. Grade 2 diastolic dysfunction on echo 2021 Appears euvolemic Continue Lasix every 2 days (7) Down syndrome: Plan: Resides at [facility] Has nurse caregiver (8) Mood disorder: Plan: History of depression, anxiety, hallucinations Continue bupropion, quetiapine, trazodone (9) Dementia: Plan: Continue donezepil (10) Hypothyroidism: Plan: Continue levothyroxine DVT Prophylaxis Lovenox SQ Full Code as per POLST form Follows with Dr Dumont for routine care Discussed with patient's caregiver Adilia over the phone. Answer questions/queries. Time spent evaluating patient, direct bedside care, chart review, placing orders, interpretation of diagnostic studies, discussion with consultants, patient, and family members, as well as other required patient management activities is 50 minutes. Please note the above document was generated using voice recognition software. It may contain grammatical, syntax or spelling errors. Any formal questions or concerns about the content, text or information contained within the body of this dictation should be directly addressed to the provider for clarification Admission and Anticipated Discharge Date Admission Date: April 24, 2023 Subjective Patient seen and examined at bedside. She is sitting up on the chair at the side of the bed; not in distress. She denies any increasing shortness of breath. Review of Systems Review of Systems: All systems reviewed & are unremarkable except as noted in Subjective Physical Exam Physical Exam: General: Comfortable; not in distress. Lungs: Bilateral clear breath sounds CV: RRR, no murmur, trace pretibial edema Abd: protuberant, normal BS, soft, non-tender Ext: no cyanosis, no calf tenderness Neuro: Alert, oriented x 2, normal affect Skin: warm, dry Results & Data Results & Data Vital Signs (Past 12 Hours) Vital Signs Pulse Pulse Resp BP Pulse Ox O2 Del Method O2 Flow Rate 04/25/23 10:48 68 18 96 Nasal Cannula 6 04/25/23 07:35 59 L 04/25/23 07:31 56 L 17 96 BiPAP 6 04/25/23 07:31 55 L 17 96 6 04/25/23 07:00 116/69 04/25/23 07:00 60 16 97 04/25/23 06:50 64 16 96 04/25/23 06:40 67 15 93 04/25/23 06:30 69 14 94 04/25/23 06:20 66 13 96 04/25/23 06:10 68 14 87 L 04/25/23 06:00 105/70 04/25/23 06:00 61 15 83 L 04/25/23 05:50 60 13 82 L 04/25/23 05:40 70 13 87 L 04/25/23 05:30 57 L 17 89 L 04/25/23 05:20 78 14 84 L 04/25/23 05:10 66 18 93 04/25/23 05:02 89/59 L 04/25/23 05:02 69 14 92 04/25/23 05:00 74 20 93 04/25/23 04:50 70 17 89 L 04/25/23 04:40 72 24 97 04/25/23 04:30 72 17 97 04/25/23 04:20 71 21 97 04/25/23 04:10 68 22 98 04/25/23 04:00 61 16 86 L 04/25/23 04:00 84/51 L 04/25/23 03:50 63 18 85 L 04/25/23 03:40 62 15 85 L 04/25/23 03:30 64 15 86 L 04/25/23 03:20 67 14 90 04/25/23 03:10 78 16 92 04/25/23 03:00 69 15 90 04/25/23 03:00 105/66 04/25/23 02:50 68 22 89 L 04/25/23 02:50 68 17 93 6 04/25/23 02:40 73 18 89 L (3) Reactive airway disease Asthma complication type: with acute exacerbation Asthma persistence: unspecified Asthma severity: unspecified severity Qualified Code(s): J45.901 - Unspecified asthma with (acute) exacerbation
[2023-04-25] MEDS: ENOXAPARIN INJ 40 MG/0.4 ML SYR SQ SCH (20:42)
[2023-04-25] MEDS: DONEPEZIL HCL 10 MG TAB PO SCH (20:42)
[2023-04-25] MEDS: traZODone HCL 50 MG TAB PO SCH (20:43)
--- NOTE | 2023-04-25 22:03 | Electrocardiogram Report ---
Test Reason : Blood Pressure : / mmHG Vent. Rate : 075 BPM Atrial Rate : 075 BPM P-R Int : 144 ms QRS Dur : 078 ms QT Int : 390 ms P-R-T Axes : 067 031 028 degrees QTc Int : 435 ms Normal sinus rhythm Normal ECG When compared with ECG of 30-MAR-2023 22:44, No significant change was found Confirmed by Saúl Mendez ([id number]) on 04/25/2023 10:03:21 PM Referred By: REFERRED SELF Confirmed By:Saúl Mendez
[2023-04-26] MEDS: LEVOTHYROXINE SODIUM 137 MCG TABLET PO SCH (05:52)
[2023-04-26] MEDS: ALBUT/IPRATROP 3MG/0.5MG NEB 3 ML VIAL NEB SCH ×4 (06:07→19:37)
[2023-04-26 07:52] LABS: Basophils # (auto) 0.03 K/uL (0.00-0.20); Basophils % (auto) 0.4 %; Hematocrit (blood only) 45.4 % (37.0-47.0); Hemoglobin 14.1 g/dl (12.0-16.0); Immature Granulocytes # (auto) 0.12 K/uL (0.01-0.20); Immature Granulocytes % (auto) 1.4 %; Lymphocytes # (auto) 1.24 K/uL (1.20-3.40); Lymphocytes % (auto) 14.8 %; Mean Corpuscular Hemoglobin 30.7 pg (25.0-34.0); Mean Corpuscular Hgb Conc 31.1 g/dL (32.0-36.0); Mean Corpuscular Volume 98.9 fL (80.0-100.0); Mean Platelet Volume 10.7 fL (9.4-12.4); Monocytes % (auto) 8.3 %; Neutrophils % (auto) 75.1 %; Platelet Count 107 K/uL (130-400); RDW Coefficient of Variation 13.4 % (11.5-14.5); RDW Standard Deviation 49.2 fL (36.4-46.3); Red Blood Count 4.59 M/uL (4.20-5.40); White Blood Count 8.39 K/ul (4.8-10.8)
[2023-04-26 07:59] LABS: Albumin Level 3.9 gm/dl (3.4-5.0); Bilirubin,Total 0.5 mg/dl (0.2-1.0); Calcium 8.7 mg/dl (8.6-10.3); Potassium 4.3 mmol/L (3.5-5.1)
[2023-04-26 08:05] LABS: Albumin Globulin Ratio 1.3 (0.9-2); BUN Creatinine Ratio 20.9 (10-20); Creatinine Clr Calc Pharmacy 51.1 ml/min; Est GFR (Non-African American) 39.7 ml/min; Globulin 3.1 gm/dl (2.5-4.0)
[2023-04-26] MEDS: FAMOTIDINE 20 MG TAB PO SCH (08:47)
[2023-04-26] MEDS: QUEtiapine FUMARATE 100 MG TABLET PO SCH ×2 (08:47→20:21)
[2023-04-26] MEDS: CALCIUM CARBONATE 1250MG TAB PO SCH (08:47)
[2023-04-26] MEDS: buPROPion SR 100 MG TABCR PO SCH (08:47)
[2023-04-26] MEDS: ATORVASTATIN 40 MG TAB PO SCH (08:47)
[2023-04-26] MEDS: DOCUSATE SODIUM 100 MG CAP PO SCH ×2 (08:47→20:23)
[2023-04-26] MEDS: CHOLECALCIFEROL 1,000 UNITS 25 MCG TAB PO SCH (08:47)
[2023-04-26] MEDS: guaiFENesin 600 MG TABCR PO SCH ×2 (08:47→20:20)
[2023-04-26] MEDS ORDERED: INFLUENZA VIRUS QUADRIVALENT VACCINE (IIV4) 0.5 ML SYR IM ONE (10:00)
[2023-04-26] MEDS ORDERED: PNEUMOCOCCAL VACCINE (PCV20) 20-VAL CONJ-DIP CRM/PF 0.5 ML SYR IM ONE (10:00)
[2023-04-26] MEDS: FLUTICASONE/VILANTEROL 200/25MCG 14 PUFFS/INHALER INH SCH (10:35)
[2023-04-26] MEDS: SODIUM CHLOR 7% 4 ML NEB NEB SCH (19:40)
[2023-04-26] MEDS: DONEPEZIL HCL 10 MG TAB PO SCH (20:20)
[2023-04-26] MEDS: ENOXAPARIN INJ 40 MG/0.4 ML SYR SQ SCH (20:20)
[2023-04-26] MEDS: traZODone HCL 50 MG TAB PO SCH (20:23)
--- NOTE | 2023-04-26 21:19 | Hospitalist Progress Note ---
Date of Service April 26, 2023 Assessment & Plan (1) RSV (respiratory syncytial virus infection): (2) Acute respiratory failure with hypoxia and hypercarbia: (3) Reactive airway disease: (4) Obesity hypoventilation syndrome: (5) Chronic kidney disease, stage 3: (6) Diastolic dysfunction: (7) Down syndrome: (8) Mood disorder: (9) Dementia: (10) Hypothyroidism: Plan Patient is a 52yoF with PMHx significant for Down's syndrome, CKD III, dyslipidemia, suspected MICHI, obesity hypoventilation syndrome, reactive airway disease, obesity, chronic diastolic dysfunction, depression, anxiety, hallucinations admitted with acute hypoxic respiratory failure in the setting of an RSV infection. presented to ER with complaint of rhinorrhea, cough x 3 days with SOB RSV (respiratory syncytial virus infection) Acute respiratory failure with hypoxia and hypercarbia Reactive airway disease Obesity hypoventilation syndrome Presented to the ER with complaints of rhinorrhea, cough x 3 days of SOB On admission, afebrile, P: 79, RR: 18, BP 98/56 up to 140/72, 88% on room air up to 95% on 2L nasal cannula Chest xray noted no acute cardiopulmonary findings RSv positive on [employer] respiratory panel VBG: pH: 7.3, pCO2: 70, HCO3: 37 Received IV dexamethasone 10 mg in the ED Continue with supportive measures -oxygen as needed, wean as tolerated -duonebs scheduled -daily Breo inhaler, prn albuterol inhaler -mucinex scheduled -cough syrup prn -hypertonic saline and chest vest percussive therapy for secretions -bipap qhs for MICHI/Obesity hypoventilation component If no improvement consider pulmonology consult Patient to have formal sleep study however has been unable to cooperate/tolerate in past Holding automatically ordered vaccines in setting of acute URI Chronic kidney disease, stage 3: Cr: 1.36. Baseline 1.4-1.5 per outpatient chart review Similar to her baseline Avoid nephrotoxic agents/contrast as able, continue home diuretic Monitor with AM labs Diastolic dysfunction Chronic diastolic dysfunction Grade 2 diastolic dysfunction on echo 2021 Appears euvolemic Continue Lasix every 2 days Down syndrome Dementia Resides at retirement Has nurse caregiver Continue donepezil Mood disorder History of depression, anxiety, hallucinations Continue bupropion, quetiapine, trazodone Hypothyroidism Continue levothyroxine HLD Continue statin CODE STATUS: Full code Diet: Low sodium DVT Prophylaxis: Lovenox SQ Dispo: From [facility], PT/OT ordered Admission and Anticipated Discharge Date Admission Date: April 24, 2023 Subjective Pt seen sitting in a chair near the bed. Not in any distress. Review of Systems Review of Systems: Unobtainable due to mental health condition Physical Exam Physical Exam: General: Alert. No acute distress Skin: No noted rashes or bruises Psych: could not be determined Neuro: No gross deficits while sitting in the chair HEENT: NC/AT, crusted nasal discharge noted CV: RRR Resp: Breath sounds coarse bilaterally, scattered wheezes, no increased effort of breathing. Abdomen: Soft Extremities: Trace edema in lower extremities bilaterally. Results & Data Results & Data Vital Signs (Past 12 Hours) Vital Signs Temp Pulse Pulse Resp BP BP Pulse Ox 04/26/23 11:29 36.7 C 99 H 18 115/69 92 04/26/23 10:09 88 18 91 04/26/23 08:00 98 04/26/23 08:00 04/26/23 07:44 99 04/26/23 07:41 37.2 C 100 H 18 125/69 99 04/26/23 07:00 103 H 04/26/23 06:07 100 H 22 91 04/26/23 03:04 37.1 C 82 18 102/63 92 04/26/23 02:55 88 21 93 O2 Del Method O2 Flow Rate 04/26/23 11:29 Nasal Cannula 5 04/26/23 10:09 Nasal Cannula 5 04/26/23 08:00 Nasal Cannula 5 04/26/23 08:00 Nasal Cannula 5 04/26/23 07:44 Nasal Cannula 6 04/26/23 07:41 Nasal Cannula 6 04/26/23 07:00 04/26/23 06:07 Nasal Cannula 6 04/26/23 03:04 BiPAP 04/26/23 02:55 6 (3) Reactive airway disease Asthma complication type: with acute exacerbation Asthma persistence: unspecified Asthma severity: unspecified severity Qualified Code(s): J45.901 - Unspecified asthma with (acute) exacerbation
[2023-04-26] MEDS ORDERED: guaiFENesin/DEXTROM SYRUP 100MG/10MG 5ML UDC PO PRN (21:31)
[2023-04-26] MEDS ORDERED: ALBUTEROL HFA 8 GM INHALER INH PRN (21:32)
[2023-04-27] MEDS: LEVOTHYROXINE SODIUM 137 MCG TABLET PO SCH (06:23)
[2023-04-27] MEDS: SODIUM CHLOR 7% 4 ML NEB NEB SCH ×2 (07:12→19:58)
[2023-04-27] MEDS: ALBUT/IPRATROP 3MG/0.5MG NEB 3 ML VIAL NEB SCH ×4 (07:12→19:58)
[2023-04-27 08:09] LABS: Basophils # (auto) 0.03 K/uL (0.00-0.20); Basophils % (auto) 0.6 %; Hematocrit (blood only) 41.6 % (37.0-47.0); Hemoglobin 13.2 g/dl (12.0-16.0); Immature Granulocytes # (auto) 0.11 K/uL (0.01-0.20); Immature Granulocytes % (auto) 2.1 %; Lymphocytes # (auto) 1.78 K/uL (1.20-3.40); Lymphocytes % (auto) 33.6 %; Mean Corpuscular Hemoglobin 31.6 pg (25.0-34.0); Mean Corpuscular Hgb Conc 31.7 g/dL (32.0-36.0); Mean Corpuscular Volume 99.5 fL (80.0-100.0); Mean Platelet Volume 10.8 fL (9.4-12.4); Monocytes # (auto) 0.83 K/uL (0.11-0.59); Monocytes % (auto) 15.7 %; Neutrophils # (auto) 2.55 K/uL (1.40-6.50); Platelet Count 119 K/uL (130-400); RDW Coefficient of Variation 13.8 % (11.5-14.5); RDW Standard Deviation 51.3 fL (36.4-46.3); Red Blood Count 4.18 M/uL (4.20-5.40)
[2023-04-27 08:28] LABS: BUN Creatinine Ratio 22.5 (10-20); Calcium 8.6 mg/dl (8.6-10.3); Creatinine Clr Calc Pharmacy 54.8 ml/min; Est GFR (African American) 50.1 ml/min; Est GFR (Non-African American) 43.2 ml/min; Magnesium 1.9 mg/dl (1.7-2.4); Phosphorus 3.3 mg/dl (2.5-4.9); Potassium 4.3 mmol/L (3.5-5.1)
[2023-04-27] MEDS: FLUTICASONE/VILANTEROL 200/25MCG 14 PUFFS/INHALER INH SCH (09:26)
[2023-04-27] MEDS: CHOLECALCIFEROL 1,000 UNITS 25 MCG TAB PO SCH (09:27)
[2023-04-27] MEDS: FAMOTIDINE 20 MG TAB PO SCH (09:27)
[2023-04-27] MEDS: CALCIUM CARBONATE 1250MG TAB PO SCH (09:27)
[2023-04-27] MEDS: ATORVASTATIN 40 MG TAB PO SCH (09:27)
[2023-04-27] MEDS: buPROPion SR 100 MG TABCR PO SCH (09:27)
[2023-04-27] MEDS: guaiFENesin 600 MG TABCR PO SCH ×2 (09:28→20:14)
[2023-04-27] MEDS: FUROSEMIDE 20 MG TAB PO SCH (09:28)
[2023-04-27] MEDS: QUEtiapine FUMARATE 100 MG TABLET PO SCH ×2 (09:28→20:14)
[2023-04-27] MEDS: DOCUSATE SODIUM 100 MG CAP PO SCH ×2 (09:33→20:13)
[2023-04-27] MEDS: AMOXICILLIN/CLAVULANATE 875 MG TAB PO SCH ×2 (11:45→16:15)
--- NOTE | 2023-04-27 12:24 | Hospitalist Progress Note ---
Date of Service April 27, 2023 Assessment & Plan (1) RSV (respiratory syncytial virus infection): (2) Acute respiratory failure with hypoxia and hypercarbia: (3) Reactive airway disease: (4) Obesity hypoventilation syndrome: (5) Chronic kidney disease, stage 3: (6) Diastolic dysfunction: (7) Down syndrome: (8) Mood disorder: (9) Dementia: (10) Hypothyroidism: Plan Patient is a 52yoF with PMHx significant for Down's syndrome, CKD III, dyslipidemia, suspected MICHI, obesity hypoventilation syndrome, reactive airway disease, obesity, chronic diastolic dysfunction, depression, anxiety, hallucinations admitted with acute hypoxic respiratory failure in the setting of an RSV infection. RSV (respiratory syncytial virus infection) Acute respiratory failure with hypoxia and hypercarbia Reactive airway disease Obesity hypoventilation syndrome Presented to the ER with complaints of rhinorrhea, cough x 3 days of SOB On admission, afebrile, P: 79, RR: 18, BP 98/56 up to 140/72, 88% on room air up to 95% on 2L nasal cannula Chest xray noted no acute cardiopulmonary findings RSv positive on [employer] respiratory panel VBG: pH: 7.3, pCO2: 70, HCO3: 37 Received IV dexamethasone 10 mg in the ED Continue with supportive measures -oxygen as needed, wean as tolerated -duonebs scheduled -daily Breo inhaler, prn albuterol inhaler -mucinex scheduled -cough syrup prn -hypertonic saline and chest vest percussive therapy for secretions -bipap qhs for MICHI/Obesity hypoventilation component If no improvement consider pulmonology consult Patient to have formal sleep study however has been unable to cooperate/tolerate in past Holding automatically ordered vaccines in setting of acute URI 04/27- Pt refusing percussive vest therapy, sounding more congested, coughing. On 6L, occasionally being weaned down to 4L. Augmentin added for complicated bronchitis picture. Continue other supportive measures as tolerated. Chronic kidney disease, stage 3: Cr: 1.36. Baseline 1.4-1.5 per outpatient chart review Similar to her baseline Avoid nephrotoxic agents/contrast as able, continue home diuretic Monitor with AM labs Diastolic dysfunction Chronic diastolic dysfunction Grade 2 diastolic dysfunction on echo 2021 Appears euvolemic Continue Lasix every 2 days Down syndrome Dementia Resides at [facility] Has nurse caregiver Continue donepezil Mood disorder History of depression, anxiety, hallucinations Continue bupropion, quetiapine, trazodone Hypothyroidism Continue levothyroxine HLD Continue statin CODE STATUS: Full code Diet: Low sodium DVT Prophylaxis: Lovenox SQ Dispo: From [facility], PT/OT ordered Admission and Anticipated Discharge Date Admission Date: April 24, 2023 Subjective Pt seen sitting in a chair near the bed. Had just finished PT, was coughing quite a bit. Per nursing, refusing percussive vest therapy. Not in any distress. Review of Systems Review of Systems: Unobtainable due to mental health condition Physical Exam Physical Exam: General: Alert. No acute distress Skin: No noted rashes or bruises Psych: could not be determined Neuro: No gross deficits while sitting in the chair HEENT: NC/AT, crusted nasal discharge noted CV: RRR Resp: Breath sounds coarse bilaterally, scattered wheezes, no increased effort of breathing. Abdomen: Soft Extremities: Trace edema in lower extremities bilaterally. Results & Data Results & Data Vital Signs (Past 12 Hours) Vital Signs Temp Pulse Pulse Resp BP Pulse Ox O2 Del Method 04/27/23 11:49 37.1 C 83 16 108/66 95 Nasal Cannula 04/27/23 10:27 95 Nasal Cannula 04/27/23 09:51 80 18 94 Nasal Cannula 04/27/23 08:00 Nasal Cannula 04/27/23 07:40 37.0 C 75 24 99/62 L 94 Nasal Cannula 04/27/23 07:12 80 18 94 Nasal Cannula 04/27/23 07:00 78 04/27/23 04:20 37.9 C H 76 20 107/68 96 BiPAP 04/27/23 03:37 84 20 98 O2 Flow Rate 04/27/23 11:49 4 04/27/23 10:27 6 04/27/23 09:51 6 04/27/23 08:00 4 04/27/23 07:40 6 04/27/23 07:12 6 04/27/23 07:00 04/27/23 04:20 04/27/23 03:37 6 (3) Reactive airway disease Asthma complication type: with acute exacerbation Asthma persistence: unspecified Asthma severity: unspecified severity Qualified Code(s): J45.901 - Unspecified asthma with (acute) exacerbation
[2023-04-27] MEDS: ENOXAPARIN INJ 40 MG/0.4 ML SYR SQ SCH (20:13)
[2023-04-27] MEDS: traZODone HCL 50 MG TAB PO SCH (20:13)
[2023-04-27] MEDS: DONEPEZIL HCL 10 MG TAB PO SCH (20:14)
[2023-04-28] MEDS: LEVOTHYROXINE SODIUM 137 MCG TABLET PO SCH (06:04)
[2023-04-28 07:36] LABS: Basophils # (auto) 0.07 K/uL (0.00-0.20); Basophils % (auto) 1.4 %; Eosinophils # (auto) 0.01 K/uL (0.00-0.50); Eosinophils % (auto) 0.2 %; Hematocrit (blood only) 39.8 % (37.0-47.0); Hemoglobin 12.3 g/dl (12.0-16.0); Immature Granulocytes # (auto) 0.25 K/uL (0.01-0.20); Immature Granulocytes % (auto) 4.9 %; Lymphocytes # (auto) 1.38 K/uL (1.20-3.40); Lymphocytes % (auto) 27.3 %; Mean Corpuscular Hemoglobin 30.6 pg (25.0-34.0); Mean Corpuscular Hgb Conc 30.9 g/dL (32.0-36.0); Mean Platelet Volume 10.4 fL (9.4-12.4); Monocytes # (auto) 0.78 K/uL (0.11-0.59); Monocytes % (auto) 15.4 %; Neutrophils # (auto) 2.57 K/uL (1.40-6.50); Neutrophils % (auto) 50.8 %; Platelet Count 101 K/uL (130-400); RDW Coefficient of Variation 13.5 % (11.5-14.5); RDW Standard Deviation 49.5 fL (36.4-46.3); Red Blood Count 4.02 M/uL (4.20-5.40); White Blood Count 5.06 K/ul (4.8-10.8)
[2023-04-28] MEDS: SODIUM CHLOR 7% 4 ML NEB NEB SCH ×2 (07:57→20:14)
[2023-04-28] MEDS: ALBUT/IPRATROP 3MG/0.5MG NEB 3 ML VIAL NEB SCH ×4 (07:57→20:13)
[2023-04-28 08:02] LABS: BUN Creatinine Ratio 20.7 (10-20); Calcium 8.4 mg/dl (8.6-10.3); Creatinine Clr Calc Pharmacy 55.1 ml/min; Est GFR (African American) 51.5 ml/min; Est GFR (Non-African American) 44.4 ml/min; Magnesium 1.9 mg/dl (1.7-2.4); Phosphorus 2.5 mg/dl (2.5-4.9); Potassium 4.2 mmol/L (3.5-5.1)
[2023-04-28] MEDS: AMOXICILLIN/CLAVULANATE 875 MG TAB PO SCH (08:30)
[2023-04-28] MEDS: FAMOTIDINE 20 MG TAB PO SCH (08:30)
[2023-04-28] MEDS: FLUTICASONE/VILANTEROL 200/25MCG 14 PUFFS/INHALER INH SCH (08:30)
[2023-04-28] MEDS: CALCIUM CARBONATE 1250MG TAB PO SCH (08:30)
[2023-04-28] MEDS: buPROPion SR 100 MG TABCR PO SCH (08:30)
[2023-04-28] MEDS: ATORVASTATIN 40 MG TAB PO SCH (08:30)
[2023-04-28] MEDS: QUEtiapine FUMARATE 100 MG TABLET PO SCH (08:30)
[2023-04-28] MEDS: DOCUSATE SODIUM 100 MG CAP PO SCH ×2 (08:30→22:10)
[2023-04-28] MEDS: guaiFENesin 600 MG TABCR PO SCH ×2 (08:30→21:38)
[2023-04-28] MEDS: CHOLECALCIFEROL 1,000 UNITS 25 MCG TAB PO SCH (08:30)
[2023-04-28 09:40] LABS: Base Excess VBG 10.3 mEq/L; HCO3 VBG 39 mmol/L; Oxygen Saturation VBG 92.3 %; PCO2 VBG 72 mmHg (38-50); PO2 VBG 58 mmHg; pH VBG 7.34 (7.36-7.41)
--- NOTE | 2023-04-28 10:17 | Hospitalist Progress Note ---
Date of Service April 28, 2023 Assessment & Plan (1) RSV (respiratory syncytial virus infection): (2) Acute respiratory failure with hypoxia and hypercarbia: (3) Reactive airway disease: (4) Obesity hypoventilation syndrome: (5) Chronic kidney disease, stage 3: (6) Diastolic dysfunction: (7) Down syndrome: (8) Mood disorder: (9) Dementia: (10) Hypothyroidism: Plan Patient is a 52yoF with PMHx significant for Down's syndrome, CKD III, dyslipidemia, suspected MICHI, obesity hypoventilation syndrome, reactive airway disease, obesity, chronic diastolic dysfunction, depression, anxiety, hallucinations admitted with acute hypoxic respiratory failure in the setting of an RSV infection. RSV (respiratory syncytial virus infection) Acute respiratory failure with hypoxia and hypercarbia Reactive airway disease Obesity hypoventilation syndrome Presented to the ER with complaints of rhinorrhea, cough x 3 days of SOB On admission, afebrile, P: 79, RR: 18, BP 98/56 up to 140/72, 88% on room air up to 95% on 2L nasal cannula Chest xray noted no acute cardiopulmonary findings RSv positive on [employer] respiratory panel VBG: pH: 7.3, pCO2: 70, HCO3: 37 Received IV dexamethasone 10 mg in the ED Continue with supportive measures -oxygen as needed, wean as tolerated -duonebs scheduled -daily Breo inhaler, prn albuterol inhaler -mucinex scheduled -cough syrup prn -hypertonic saline and chest vest percussive therapy for secretions -bipap qhs for MICHI/Obesity hypoventilation component If no improvement consider pulmonology consult Patient to have formal sleep study however has been unable to cooperate/tolerate in past Holding automatically ordered vaccines in setting of acute URI 04/27- Pt refusing percussive vest therapy, sounding more congested, coughing. On 6L, occasionally being weaned down to 4L. Augmentin added for complicated bronchitis picture. Continue other supportive measures as tolerated. 04/28- Pt lethargic on exam, more effort with breathing today. Per nursing, noticed the same. Stat VBG ordered and reviewed, appears to be retaining CO2 at 72 given Hx of possible MICHI/Obesity hypoventilation Syndrome. uncertain if she used ordered qhs cpap/bipap overnight. Urgent Chest CT ordered w/o contrast in setting of pt's CASSIA, noting multifocal pneumonia though previous chest XRAYs did not note one. Added po doxycycline to Augmentin started the day before for complicated bronchitis picture. MRSA nares ordered and pending. Pt refusing percussive vest, continue neb treatments as ordered. Continuous bipap order placed for further treatment at this time. Pulm consult placed for further recommendations, appreciated. Chronic kidney disease, stage 3: Cr: 1.36. Baseline 1.4-1.5 per outpatient chart review Similar to her baseline Avoid nephrotoxic agents/contrast as able, continue home diuretic Monitor with AM labs Diastolic dysfunction Chronic diastolic dysfunction Grade 2 diastolic dysfunction on echo 2021 Appears euvolemic Continue Lasix every 2 days Down syndrome Dementia Resides at care home Has nurse caregiver Continue donepezil Mood disorder History of depression, anxiety, hallucinations Continue bupropion, quetiapine, trazodone Hypothyroidism Continue levothyroxine HLD Continue statin CODE STATUS: Full code Diet: Low sodium DVT Prophylaxis: Lovenox SQ Dispo: From care home, PT/OT ordered Admission and Anticipated Discharge Date Admission Date: April 24, 2023 Subjective Pt seen this AM. Lethargic, having to be awakened frequently during the exam. Appeared to be using more effort to breathe. Per nursing, she is usually more verbal, just nodding today. Pt has Down's. Review of Systems Review of Systems: All systems reviewed & are unremarkable except as noted in Subjective Physical Exam Physical Exam: General: Drowsy and lethargic. No acute distress Skin: No noted rashes or bruises Psych: could not be determined Neuro: No gross deficits while sitting in the chair HEENT: NC/AT, crusted nasal discharge noted CV: RRR Resp: Breath sounds coarse bilaterally, scattered wheezes, some increased effort of breathing. Abdomen: Soft Extremities: Trace edema in lower extremities bilaterally. Results & Data Results & Data Vital Signs (Past 12 Hours) Vital Signs Temp Pulse Pulse Pulse Resp BP Pulse Ox 04/28/23 08:41 83 04/28/23 08:02 82 18 94 04/28/23 07:43 36.7 C 86 20 110/68 91 04/28/23 07:33 04/28/23 04:18 80 17 93 04/28/23 03:07 37.6 C H 84 18 116/73 93 04/28/23 01:27 89 21 98 04/28/23 00:42 90 04/27/23 23:51 04/27/23 22:18 37.2 C 87 20 108/68 92 O2 Del Method O2 Flow Rate 04/28/23 08:41 04/28/23 08:02 Nasal Cannula 6 04/28/23 07:43 Nasal Cannula 6 04/28/23 07:33 Nasal Cannula 4 04/28/23 04:18 6 04/28/23 03:07 BiPAP 04/28/23 01:27 6 04/28/23 00:42 04/27/23 23:51 Nasal Cannula 4 04/27/23 22:18 Nasal Cannula 5 (3) Reactive airway disease Asthma complication type: with acute exacerbation Asthma persistence: u nspecified Asthma severity: unspecified severity Qualified Code(s): J45.901 - Unspecified asthma with (acute) exacerbation
--- NOTE | 2023-04-28 10:53 | CT Scan Report ---
CT SCAN OF THE CHEST WITHOUT IV CONTRAST CLINICAL HISTORY: Hypoxia. COMPARISON STUDY: Chest x-ray dated 04/24/2023. Chest CT dated 12/03/2022. TECHNIQUE: CT scan of the thorax was performed from the thoracic inlet to the upper abdomen. Images are reviewed in the axial, sagittal, and coronal planes. IV contrast was not administered for this ex amination as per the referring clinician. A dose lowering technique was utilized adhering to the [facility] of [facility]. CT DOSE: 768.87 mGy.cm FINDINGS: Thyroid: Mildly atrophic and heterogeneous. Thoracic aorta: The thoracic aorta is normal in caliber and demonstrates standard 3-vessel arch anato my. Heart: The heart is normal in size and without pericardial effusion. Lungs and pleural spaces: Multifocal airspace consolidation is seen throughout both lungs, greatest a t the lung bases. There is trace left pleural effusion. The trachea and central airways are clear. Di ffuse peribronchial thickening is observed. Mediastinum: There are mildly enlarged mediastinal lymph nodes which measure up to 11 mm in short axi s. Jennifer: Not well assessed without IV contrast. Axillae: There is no axillary lymphadenopathy. Upper abdomen: Partially visualized upper abdominal viscera is within normal limits. Skeletal structures: No lytic or blastic bony lesions are seen. IMPRESSION: 1. There is multifocal bilateral airspace consolidation, greatest at the lung bases. Appearance is ty pical for pneumonia. Clinical correlation will be required and radiographic follow-up to resolution i s recommended. 2. Trace left pleural effusion. 3. Mildly enlarged mediastinal lymph nodes are nonspecific and likely reactive. 4. Additional findings as above. ACT 112: Negative or not required by law. Electronically signed by: Allan Hayes M.D. 04/28/2023 10:52 AM
[2023-04-28] MEDS ORDERED: DOXYCYCLINE HYCLATE 100 MG CAP PO SCH (11:30)
[2023-04-28] MEDS ORDERED: CEFEPIME 2,000 MG in SYRINGE 0 ML IV SCH (13:00)
[2023-04-28] MEDS: DOXYCYCLINE HYCLATE 100 MG in DEXTROSE 5% MINI-B 100 ML IV SCH ×2 (13:17→23:23)
--- NOTE | 2023-04-28 15:05 | Pulmonary Consultation ---
Date of Consultation April 28, 2023 Assessment & Plan (1) Obesity hypoventilation syndrome: (2) Acute and chronic respiratory failure with hypercapnia: (3) RSV (respiratory syncytial virus infection): Plan Impression: 52-year-old female with Down syndrome and morbid obesity and severe sleep disordered breathing (polysomnography performed 1 year ago showing an AHI of over 120 unresponsive to BiPAP up to 18/14). Now with RSV pneumonia and recurrent acute on chronic hypercarbic respiratory failure. Recommendations: 1. Acute on chronic hypercarbic respiratory failure: Patient is currently on BiPAP 14/8. Based on her prior sleep study, this is inadequate. Will increase her settings to 20/15. It is unclear if that will be adequate or not. Repeat venous blood gas in 1 to 2 hours. There are no other acceptable alternatives to the noninvasive positive pressure ventilation for this patient other than weight loss and consideration for tracheostomy, neither of which are likely going to be feasible. In light of this, would strongly recommend redefining goals of therapy as it is likely inappropriate for this patient with Down syndrome to remain full code if she refuses the only therapy for her obesity hypoventilation syndrome. 2. RSV infection: Continue supportive care. No indication for steroids or additional antivirals 3. Potential pneumonia: The patient has been placed on cefepime Augmentin and doxycycline. Will check procalcitonin. Cefepime can be discontinued as the patient does not have a prior history of structurally abnormal lungs or prior antimicrobial therapy which would put her at risk for gram-negative resistant rods. If procalcitonin is negative, antibiotics can likely be tapered or discontinued. 4. Patient is on ICS/LABA although it is unclear if she has asthma. I do not see PFTs in her chart and she likely has more of a restrictive process than obstruction. No evidence of wheezing however appears reasonable to continue for now. 5. Hypertonic saline and chest percussive therapy are unlikely to be beneficial in a patient with altered mental status and these will be discontinued for now. Patient's overall prognosis is guarded. If she can be compliant with noninvasive positive pressure ventilation, this may be treatable but if she wakes up and refuses therapy, outcomes may be less than desirable History of Present Illness Attending Physician: Elvia Moore MD History of Present Illness Asked by hospitalist to assist in evaluation management of this patient with hypoxemic and hypercarbic respiratory failure. History is obtained from review electronic medical record as well as discussion with the patient. Patient is a 52-year-old female with morbid obesity and Down syndrome. She had polysomnography performed in the outpatient setting April 2022 demonstrating severe sleep disordered breathing with an AHI of 128 and unresponsive to BiPAP . Dedicated titration study was recommended. She presented to the facility April 24, 2023 with cough x 3 days. She had rhinorrhea but no fevers. Home COVID testing was negative. She was found to be positive for RSV in the emergency room. She is placed on supplemental oxygen. VBG at that time demonstrated hypercarbic respiratory failure. The patient was given dexamethasone. Patient demonstrated a decreased level of consciousness today and blood gas confirmed acute on chronic hypercarbic respiratory failure. She was placed on BiPAP and pulmonary was consulted. The patient is somnolent on my arrival. She is not able to provide any history. No family is available in the room. She is on BiPAP sitting up in the chair. Allergies Allergy/AdvReac Type Severity Reaction Status Date / Time No Known Allergies Allergy Verified 04/23/23 13:46 Home Medications Medication Instructions Recorded Confirmed Type calcium carbonate 600 mg calcium 600 mg PO QAM 01/18/19 04/24/23 History (1,500 mg) tablet donepezil 10 mg tablet 10 mg PO QPM 01/18/19 04/24/23 History docusate sodium 100 mg capsule 100 mg PO BID 01/22/22 04/24/23 History budesonide-formoterol HFA 160 2 inh inhalation BID 06/11/22 04/24/23 History mcg-4.5 mcg/actuation aerosol inhaler (Symbicort) cyclosporine 0.05 % eye drops in a 1 drp OPB Q12H 06/11/22 04/24/23 History dropperette (Restasis) zinc oxide-cod liver oil 40 % 1 applic topical BID 06/11/22 04/24/23 History topical paste (Desitin) albuterol sulfate 90 mcg/actuation 2 puff inhalation Q4H PRN 12/03/22 04/24/23 History aerosol inhaler (Ventolin HFA) COUGH/SHORT OF BREATH atorvastatin 40 mg tablet 40 mg PO QAM 12/03/22 04/24/23 History cholecalciferol (vitamin D3) 25 25 mcg PO QAM 12/03/22 04/24/23 History mcg (1,000 unit) capsule (Vitamin D3) ciclopirox 0.77 % topical gel 1 applic topical DAILY PRN 12/03/22 04/24/23 History NEEDED famotidine 20 mg tablet 20 mg PO QAM 12/03/22 04/24/23 History furosemide 20 mg tablet 20 mg PO DAILY PRN WT GAIN 3#/24 12/03/22 04/24/23 History HRS OR 5#/48 HRS acetaminophen 500 mg tablet 500 mg PO Q4H PRN 03/30/23 04/24/23 History (Tylenol Extra Strength) FEVER/SOTO/MENSTRUAL CRAMPS/PAIN aluminum-mag hydroxide-simethicone 10 ml PO TID PRN Indigestion 03/30/23 04/24/23 History 200 mg-200 mg-20 mg/5 mL oral susp bismuth subsalicylate 262 mg/15 mL 524 mg PO DIRECTED PRN 03/30/23 04/24/23 History oral suspension (Pepto-Bismol) NAUSEA/VOMITING bupropion HCl 200 mg tablet,12 hr 200 mg PO QAM 03/30/23 04/24/23 History sustained-release carbamide peroxide 6.5 % ear drops 5 drp otic (ear) UD 03/30/23 04/24/23 History (Ear Wax Removal Drops) carboxymethylcellulose sodium 1 % 1 drp OPB DIRECTED PRN Dry Eyes 03/30/23 04/24/23 History eye drops (Artificial Tears (carboxymethylcellulose)) dextromethorphan-guaifenesin 10 10 ml PO Q4H PRN Cough 03/30/23 04/24/23 History mg-100 mg/5 mL oral syrup furosemide 20 mg tablet (Lasix) 20 mg PO Q2D 03/30/23 04/24/23 History hydrocortisone 1 % topical cream 1 applic topical TID PRN Rash 03/30/23 04/24/23 History levothyroxine 137 mcg tablet 137 mcg PO QAM 03/30/23 04/24/23 History loperamide 2 mg capsule 2 mg PO UD PRN Diarrhea 03/30/23 04/24/23 History magnesium hydroxide 400 mg/5 mL 10 ml PO Q6H PRN Constipation 03/30/23 04/24/23 History oral suspension (Milk of Magnesia) menthol 2.7 mg lozenges (Cough 2.7 mg PO Q4H PRN Cough 03/30/23 04/24/23 History Drops) neomycin-bacitracn Zn-polymyx 3.5 1 applic topical BID PRN SMALL 03/30/23 04/24/23 History mg-400 unit-5,000 unit/gram top CUTS/ABRASIONS oint (Triple Antibiotic) nystatin 100,000 unit/gram topical 1 applic topical BID PRN dermatitis 03/30/23 04/24/23 History powder phenylephrine HCl 10 mg tablet 10 mg PO Q4H PRN COLD/RUNNY NOSE 03/30/23 04/24/23 History (Sudafed PE) quetiapine 100 mg tablet 100 mg PO BID 03/30/23 04/24/23 History trazodone 50 mg tablet 50 mg PO HS 03/30/23 04/24/23 History fluoride (sodium) 1.1 % dental 1 applic dental BID 04/23/23 04/24/23 History cream (Denta 5000 Plus) Patient History Medical History (Updated 04/28/23 @ 15:14 by Chance Menendez MD) Pneumonia Hypothyroidism Post-menopausal Pharyngoesophageal dysphagia Osteoarthritis Obesity Mood disorder Chronic kidney disease, stage 3 Hearing loss Hallucinations Hx of esophagitis Dry eyes Degenerative disc disease, lumbar Constipation Bursitis unilateral hip, unsure which side Asthma Arthritis GERD (gastroesophageal reflux disease) Cataracts, bilateral Sleep apnea no current device, getting tested again in 05/2023 Dementia Primary hypothyroidism Down syndrome Hypertension Hypercholesteremia Depression Hx of breast lump Surgical History Surgical history unknown Family History Unknown History not obtained Per new pt paperwork family history is "unknown" Social History Smoking Status: Unknown if ever smoked Second Hand Exposure: No; Do You Dip or Chew Tobacco: No; Hx Alcohol Use: No Hx Substance Use: No Preferred Language: Belarusian Communication Ability: Effective Manager Ship Required: No Beliefs That Will Affect Care: None Current Living Situation: Other Current Living Situation Comment: assisted Feels Safe at Home: Yes Assistive Devices: Nebulizer and Walker Review of Systems Review of Systems: Please refer to admission H&P and hospitalist notes for details. No additions or deletions Physical Exam Constitutional: + morbidly obese and + lethargic Neck: trachea midline, no thyromegaly Respiratory: normal respiratory effort, lungs clear to auscultation Cardiovascular: RRR, no murmur, no edema Gastrointestinal (Abdomen): normal bowel sounds, soft, nontender, no hepatosplenomegaly Musculoskeletal: Extremities: extremities normal to inspection Skin: no rashes, warm and dry Lymphatic: no cervical lymphadenopathy Results & Data Results & Data Vital Signs (Past 12 Hours) Vital Signs Temp Pulse Pulse Pulse Resp BP Pulse Ox 04/28/23 13:58 68 20 98 04/28/23 13:58 68 20 97 04/28/23 11:58 37.1 C 67 18 97/64 L 94 04/28/23 11:18 37.1 C 73 20 115/79 97 04/28/23 10:46 73 22 90 04/28/23 10:46 73 22 90 04/28/23 08:41 83 04/28/23 08:02 82 18 94 04/28/23 07:43 36.7 C 86 20 110/68 91 04/28/23 07:33 04/28/23 04:18 80 17 93 04/28/23 03:07 37.6 C H 84 18 116/73 93 O2 Del Method O2 Flow Rate 04/28/23 13:58 CPAP 5 04/28/23 13:58 5 04/28/23 11:58 BiPAP 4 04/28/23 11:18 Nasal Cannula 4 04/28/23 10:46 5 04/28/23 10:46 BiPAP 5 04/28/23 08:41 04/28/23 08:02 Nasal Cannula 6 04/28/23 07:43 Nasal Cannula 6 04/28/23 07:33 Nasal Cannula 4 04/28/23 04:18 6 04/28/23 03:07 BiPAP Critical Care Results & Data Vital Signs (Past 12 Hours) Vital Signs Temp Pulse Pulse Pulse Resp BP Pulse Ox 04/28/23 13:58 68 20 98 04/28/23 13:58 68 20 97 04/28/23 11:58 37.1 C 67 18 97/64 L 94 04/28/23 11:18 37.1 C 73 20 115/79 97 04/28/23 10:46 73 22 90 04/28/23 10:46 73 22 90 04/28/23 08:41 83 04/28/23 08:02 82 18 94 04/28/23 07:43 36.7 C 86 20 110/68 91 04/28/23 07:33 04/28/23 04:18 80 17 93 O2 Del Method O2 Flow Rate 04/28/23 13:58 CPAP 5 04/28/23 13:58 5 04/28/23 11:58 BiPAP 4 04/28/23 11:18 Nasal Cannula 4 04/28/23 10:46 5 04/28/23 10:46 BiPAP 5 04/28/23 08:41 04/28/23 08:02 Nasal Cannula 6 04/28/23 07:43 Nasal Cannula 6 04/28/23 07:33 Nasal Cannula 4 04/28/23 04:18 6 Lab & Micro Results (Past 24 Hours) RBC 4.02 M/uL (4.20-5.40) L 04/28/23 WBC 5.06 K/ul (4.8-10.8) 04/28/23 Hgb 12.3 g/dl (12.0-16.0) 04/28/23 Hct 39.8 % (37.0-47.0) 04/28/23 MCV 99.0 fL (80.0-100.0) 04/28/23 MCH 30.6 pg (25.0-34.0) 04/28/23 MCHC 30.9 g/dL (32.0-36.0) L 04/28/23 RDW Standard Deviation 49.5 fL (36.4-46.3) H 04/28/23 RDW Coefficient of Variation 13.5 % (11.5-14.5) 04/28/23 Plt Count 101 K/uL (130-400) L 04/28/23 MPV 10.4 fL (9.4-12.4) 04/28/23 Neutrophils (%) (Auto) 50.8 % 04/28/23 Lymphocytes (%) (Auto) 27.3 % 04/28/23 Monocytes # (Auto) 0.78 K/uL (0.11-0.59) H 04/28/23 Eosinophils # (Auto) 0.01 K/uL (0.00-0.50) 04/28/23 Immature Granulocyte % (Auto) 4.9 % 04/28/23 Neutrophils # (Auto) 2.57 K/uL (1.40-6.50) 04/28/23 Lymphocytes # (Auto) 1.38 K/uL (1.20-3.40) 04/28/23 Monocytes # (Auto) 0.78 K/uL (0.11-0.59) H 04/28/23 Eosinophils # (Auto) 0.01 K/uL (0.00-0.50) 04/28/23 Basophils # (Auto) 0.07 K/uL (0.00-0.20) 04/28/23 Immature Granulocyte # (Auto) 0.25 K/uL (0.01-0.20) H 04/28 Na 142 mmol/L (136-145) 04/28/23 K 4.2 mmol/L (3.5-5.1) 04/28/23 Cl 102 mmol/L (98-107) 04/28/23 CO2 36 mmol/L (21-32) H 04/28/23 Anion Gap 4 (3-11) 04/28/23 BUN 28 mg/dl (6-23) H 04/28/23 Creatinine 1.35 mg/dl (0.6-1.2) H 04/28/23 Estimated GFR ( Amer) 51.5 ml/min 04/28/23 Estimated GFR (Non-Af Amer) 44.4 ml/min 04/28/23 BUN/Creatinine Ratio 20.7 (10-20) H 04/28/23 Glu 106 mg/dl (70-99(Fasting)) H 04/28/23 Ca 8.4 mg/dl (8.6-10.3) L 04/28/23 Phosphorus Level 2.5 mg/dl (2.5-4.9) 04/28/23 Mg 1.9 mg/dl (1.7-2.4) 04/28/23 07:01 Calcium Level 8.4 mg/dl (8.6-10.3) L 04/28/23 07:01 Venous Blood pH 7.34 (7.36-7.41) L 04/28/23 09:31 Venous Blood Partial Pressure CO2 72 mmHg (38-50) H 04/28/23 09 :31 Venous Blood Partial Pressure O2 58 mmHg 04/28/23 09:31 Venous Blood HCO3 39 mmol/L 04/28/23 09:31 Venous Blood Base Excess 10.3 mEq/L 04/28/23 09:31 Venous Blood Oxygen Saturation 92.3 % 04/28/23 09:31 Diagnostic Findings (Past 24 Hours) Chest CT 04/28/23 09:15 CT SCAN OF THE CHEST WITHOUT IV CONTRAST CLINICAL HISTORY: Hypoxia. COMPARISON STUDY: Chest x-ray dated 04/24/2023. Chest CT dated 12/03/2022. TECHNIQUE: CT scan of the thorax was performed from the thoracic inlet to the upper abdomen. Images are reviewed in the axial, sagittal, and coronal planes. IV contrast was not administered for this examination as per the referring clinician. A dose lowering technique was utilized adhering to the principles of ALARA. CT DOSE: 768.87 mGy.cm FINDINGS: Thyroid: Mildly atrophic and heterogeneous. Thoracic aorta: The thoracic aorta is normal in caliber and demonstrates standard 3-vessel arch anatomy. Heart: The heart is normal in size and without pericardial effusion. Lungs and pleural spaces: Multifocal airspace consolidation is seen throughout both lungs, greatest at the lung bases. There is trace left pleural effusion. The trachea and central airways are clear. Diffuse peribronchial thickening is observed. Mediastinum: There are mildly enlarged mediastinal lymph nodes which measure up to 11 mm in short axis. Jennifer: Not well assessed without IV contrast. Axillae: There is no axillary lymphadenopathy. Upper abdomen: Partially visualized upper abdominal viscera is within normal limits. Skeletal structures: No lytic or blastic bony lesions are seen. IMPRESSION: 1. There is multifocal bilateral airspace consolidation, greatest at the lung bases. Appearance is typical for pneumonia. Clinical correlation will be required and radiographic follow-up to resolution is recommended. 2. Trace left pleural effusion. 3. Mildly enlarged mediastinal lymph nodes are nonspecific and likely reactive. 4. Additional findings as above. ACT 112: Negative or not required by law. Electronically signed by: Allan Hayes M.D. 04/28/2023 10:52 AM I & O Totals 24 Hours 04/27/23 04/28/23 04/29/23 06:59 06:59 06:59 Intake Total 240 / 240 180 / 180 100 / 100 Output Total / 0 / 0 Balance 239 / 239 180 / 180 100 / 100 Cumulative 04/24/23 14:04 thru 04/28/23 13:06 Intake Total 960 Output Total 1 Balance 959 RT Ventilator Mngmt (Last Documented) Ventilator Ordered Settings Respiratory Rate 20 04/28/23 13:58 Ventilator - PT Measurements Respiratory Rate 20 PG Care Time/CCT Total # of Minutes Spent Total Time Spent with Patient: Total time spent is greater than 50% in coordination of care (as documented) at patient's floor/unit and/or counseling patient: Coding Level of Care Code 04737 IN/OBS CONSULT LVL 4,60M Diagnoses Obesity hypoventilation syndrome E66.2 Acute and chronic respiratory failure with hypercapnia J96.22 RSV (respiratory syncytial virus infection) B33.8
[2023-04-28] MEDS ORDERED: cefTRIAXone SODIUM 2,000 MG in DEXTROSE 5 % MINI-B 50 ML IV SCH (15:30)
[2023-04-28 16:48] LABS: HCO3 VBG 38 mmol/L; Oxygen Saturation VBG 63.8 %; PCO2 VBG 74 mmHg (38-50); PO2 VBG 35 mmHg; pH VBG 7.32 (7.36-7.41)
[2023-04-28] MEDS ORDERED: MAGNESIUM SULFATE / D5W 1 GM/100 ML BAG IV ONE (19:29)
--- NOTE | 2023-04-28 19:31 | Communication Note ---
Date of Service: April 28, 2023 Made aware of respiratory acidosis and intermittent lethargy. Continue BiPAP Hold neuropsychotropic medications while patient lethargic.
[2023-04-28 20:13] LABS: Base Excess VBG 10.5 mEq/L; HCO3 VBG 39 mmol/L; Oxygen Saturation VBG < 60.0 %; PCO2 VBG 73 mmHg (38-50); PO2 VBG 34 mmHg; pH VBG 7.34 (7.36-7.41)
[2023-04-28] MEDS: ENOXAPARIN INJ 40 MG/0.4 ML SYR SQ SCH (21:38)
[2023-04-28] MEDS: DONEPEZIL HCL 10 MG TAB PO SCH (21:38)
[2023-04-29] MEDS: LEVOTHYROXINE SODIUM 137 MCG TABLET PO SCH (06:10)
[2023-04-29 06:54] LABS: BUN Creatinine Ratio 22.4 (10-20); Calcium 8.9 mg/dl (8.6-10.3); Creatinine Clr Calc Pharmacy 59.7 ml/min; Est GFR (African American) 56.5 ml/min; Est GFR (Non-African American) 48.7 ml/min; Magnesium 2.2 mg/dl (1.7-2.4); Phosphorus 2.6 mg/dl (2.5-4.9); Potassium 4.3 mmol/L (3.5-5.1)
[2023-04-29] MEDS: ALBUT/IPRATROP 3MG/0.5MG NEB 3 ML VIAL NEB SCH ×4 (07:24→20:27)
[2023-04-29] MEDS: SODIUM CHLOR 7% 4 ML NEB NEB SCH ×2 (07:24→20:27)
[2023-04-29] MEDS: ATORVASTATIN 40 MG TAB PO SCH (08:07)
[2023-04-29] MEDS: FLUTICASONE/VILANTEROL 200/25MCG 14 PUFFS/INHALER INH SCH (08:07)
[2023-04-29] MEDS: FUROSEMIDE 20 MG TAB PO SCH (08:07)
[2023-04-29] MEDS: CALCIUM CARBONATE 1250MG TAB PO SCH (08:07)
[2023-04-29] MEDS: guaiFENesin 600 MG TABCR PO SCH ×2 (08:07→21:29)
[2023-04-29] MEDS: CHOLECALCIFEROL 1,000 UNITS 25 MCG TAB PO SCH (08:07)
[2023-04-29] MEDS: FAMOTIDINE 20 MG TAB PO SCH (08:07)
[2023-04-29] MEDS: DOCUSATE SODIUM 100 MG CAP PO SCH ×2 (08:18→21:31)
[2023-04-29 08:22] LABS: Basophils # (auto) 0.09 K/uL (0.00-0.20); Basophils % (auto) 1.5 %; Eosinophils # (auto) 0.07 K/uL (0.00-0.50); Eosinophils % (auto) 1.1 %; Hematocrit (blood only) 42.6 % (37.0-47.0); Hemoglobin 13.6 g/dl (12.0-16.0); Immature Granulocytes % (auto) 4.9 %; Lymphocytes # (auto) 1.82 K/uL (1.20-3.40); Lymphocytes % (auto) 29.8 %; Mean Corpuscular Hemoglobin 31.1 pg (25.0-34.0); Mean Corpuscular Hgb Conc 31.9 g/dL (32.0-36.0); Mean Corpuscular Volume 97.5 fL (80.0-100.0); Mean Platelet Volume 10.8 fL (9.4-12.4); Monocytes # (auto) 0.69 K/uL (0.11-0.59); Monocytes % (auto) 11.3 %; Neutrophils # (auto) 3.14 K/uL (1.40-6.50); Neutrophils % (auto) 51.4 %; Platelet Count 137 K/uL (130-400); RDW Coefficient of Variation 13.1 % (11.5-14.5); RDW Standard Deviation 47.5 fL (36.4-46.3); Red Blood Count 4.37 M/uL (4.20-5.40); White Blood Count 6.11 K/ul (4.8-10.8)
[2023-04-29 09:03] LABS: Base Excess VBG 10.5 mEq/L; HCO3 VBG 39 mmol/L; Oxygen Saturation VBG 62.9 %; PCO2 VBG 73 mmHg (38-50); PO2 VBG 36 mmHg; pH VBG 7.34 (7.36-7.41)
--- NOTE | 2023-04-29 10:59 | Hospitalist Progress Note ---
Date of Service April 29, 2023 Assessment & Plan (1) RSV (respiratory syncytial virus infection): (2) Acute respiratory failure with hypoxia and hypercarbia: (3) Reactive airway disease: (4) Obesity hypoventilation syndrome: (5) Chronic kidney disease, stage 3: (6) Diastolic dysfunction: (7) Down syndrome: (8) Mood disorder: (9) Dementia: (10) Hypothyroidism: Plan Patient is a 52yoF with PMHx significant for Down's syndrome, CKD III, dyslipidemia, suspected MICHI, obesity hypoventilation syndrome, reactive airway disease, obesity, chronic diastolic dysfunction, depression, anxiety, hallucinations admitted with acute hypoxic respiratory failure in the setting of an RSV infection. RSV (respiratory syncytial virus infection) Acute respiratory failure with hypoxia and hypercarbia Reactive airway disease Obesity hypoventilation syndrome Presented to the ER with complaints of rhinorrhea, cough x 3 days of SOB On admission, afebrile, P: 79, RR: 18, BP 98/56 up to 140/72, 88% on room air up to 95% on 2L nasal cannula Chest xray noted no acute cardiopulmonary findings RSv positive on [employer] respiratory panel VBG: pH: 7.3, pCO2: 70, HCO3: 37 Received IV dexamethasone 10 mg in the ED Continue with supportive measures -oxygen as needed, wean as tolerated -duonebs scheduled -daily Breo inhaler, prn albuterol inhaler -mucinex scheduled -cough syrup prn -hypertonic saline and chest vest percussive therapy for secretions -bipap qhs for MICHI/Obesity hypoventilation component If no improvement consider pulmonology consult Patient to have formal sleep study however has been unable to cooperate/tolerate in past Holding automatically ordered vaccines in setting of acute URI 04/27- Pt refusing percussive vest therapy, sounding more congested, coughing. On 6L, occasionally being weaned down to 4L. Augmentin added for complicated bronchitis picture. Continue other supportive measures as tolerated. 04/28- Pt lethargic on exam, more effort with breathing today. Per nursing, noticed the same. Stat VBG ordered and reviewed, appears to be retaining CO2 at 72 given Hx of possible MICHI/Obesity hypoventilation Syndrome. uncertain if she used ordered qhs cpap/bipap overnight. Urgent Chest CT ordered w/o contrast in setting of pt's CKD, noting multifocal pneumonia though previous chest XRAYs did not note one. Added po doxycycline to Augmentin started the day before for complicated bronchitis picture. MRSA nares ordered and pending. Pt refusing percussive vest, continue neb treatments as ordered. Continuous bipap order placed for further treatment at this time. Pulm consult placed for further recommendations, appreciated. 04/29- symptoms improved, vbg not changing much, antibiotics discontinued per pulm recs as procal wnl Chronic kidney disease, stage 3: Cr: 1.36. Baseline 1.4-1.5 per outpatient chart review Similar to her baseline Avoid nephrotoxic agents/contrast as able, continue home diuretic Monitor with AM labs Diastolic dysfunction Chronic diastolic dysfunction Grade 2 diastolic dysfunction on echo 2021 Appears euvolemic Continue Lasix every 2 days Down syndrome Dementia Resides at retirement Has nurse caregiver Continue donepezil Mood disorder History of depression, anxiety, hallucinations Holding home bupropion, quetiapine, trazodone Hypothyroidism Continue levothyroxine HLD Continue statin CODE STATUS: Full code Diet: Low sodium DVT Prophylaxis: Lovenox SQ Dispo: From retirement, PT/OT ordered Admission and Anticipated Discharge Date Admission Date: April 24, 2023 Subjective Pt seen in the early AM. Reportedly had bipap removed overnight and in the AM. Review of Systems Review of Systems: Unobtainable due to mental health condition Physical Exam Physical Exam: General: No acute distress Skin: No noted rashes or bruises Psych: could not be determined Neuro: No gross deficits while sitting in the chair HEENT: NC/AT CV: RRR Resp: Breath sounds coarse bilaterally, scattered wheezes, some increased effort of breathing. Abdomen: Soft Extremities: Trace edema in lower extremities bilaterally. Results & Data Results & Data Vital Signs (Past 12 Hours) Vital Signs Temp Pulse Pulse Resp BP Pulse Ox O2 Del Method 04/29/23 10:15 71 04/29/23 07:49 36.9 C 75 16 107/73 94 Nasal Cannula 04/29/23 07:31 Nasal Cannula 04/29/23 07:24 72 20 94 Nasal Cannula 04/29/23 02:48 36.1 C L 88 18 117/74 89 L Nasal Cannula 04/28/23 23:17 74 O2 Flow Rate 04/29/23 10:15 04/29/23 07:49 6 04/29/23 07:31 6 04/29/23 07:24 6 04/29/23 02:48 6 04/28/23 23:17 (3) Reactive airway disease Asthma complication type: with acute exacerbation Asthma persistence: unspecified Asthma severity: unspecified severity Qualified Code(s): J45.901 - Unspecified asthma with (acute) exacerbation
--- NOTE | 2023-04-29 13:16 | Pulmonology Progress Note ---
Date of Service April 29, 2023 Assessment & Plan (1) Obesity hypoventilation syndrome: (2) Acute and chronic respiratory failure with hypercapnia: (3) RSV (respiratory syncytial virus infection): Plan Impression: 52-year-old female with Down syndrome and morbid obesity and severe sleep disordered breathing (polysomnography performed 1 year ago showing an AHI of over 120 unresponsive to BiPAP up to 18/14). Now with RSV pneumonia and recurrent acute on chronic hypercarbic respiratory failure. Recommendations: 1. Acute on chronic hypercarbic respiratory failure: Patient was able to tolerate BiPAP at 20/15 for period of time yesterday. It is possible that the settings may not be adequate for the patient however she did tolerate them in the hospital. Her blood gas demonstrated stability but clinically the patient was much improved with regards to her level of obtundation. She does not need to be on BiPAP 24/7, if she is compliant with it at night and uses it as needed during the day should she develop altered mental status associated with hypercarbia, this would be adequate. 2. RSV infection: Continue supportive care. No indication for steroids or additional antivirals 3. Potential pneumonia: Procalcitonin normal at 0.26. Would recommend discontinuation of antibiotics. 4. Patient is on ICS/LABA although it is unclear if she has asthma. I do not see PFTs in her chart and she likely has more of a restrictive process than obstruction. No evidence of wheezing however appears reasonable to continue for now. 5. Avoid any medications known to depress respiratory drive. This would include narcotics, sedatives, or hypnotics. Would avoid over titrating oxygen. Oxygen should be applied to maintain oxygen saturations around 88 to 90% given her concomitant hypercarbia. 6. Weight loss recommended. Nutritional counseling and nutritional consult may be of benefit. Patient could be a candidate for outpatient bariatric medicine. Recommend the patient follow-up with the [facility] pulmonary sleep clinic with whom she is established at discharge. Patient appears significantly clinically improved currently. Feel free to contact us should her respiratory status worsen. Remain available to see if needed. Admission and Anticipated Discharge Date Admission Date: April 24, 2023 Subjective Patient seen and examined. EMR reviewed. Discussed with respiratory therapy. The patient was successful in using BiPAP overnight. This resulted in significant improvement in the patient's mental status although her blood gas settings remained about the same. There was some confusion about need for continuous BiPAP if the patient's mental status was improving but respiratory therapy appropriately withheld reapplication of noninvasive positive pressure ventilation as the patient was awake alert eating and participating in her coloring books. On my exam, the patient is not really forthcoming with any answers to questions. She states she is not having any issues and when I asked her about using BiPAP going forward, she nods her head in agreement. Review of Systems 2 Review of Systems: Unobtainable due to cognitive status Physical Exam 2 Constitutional: + morbidly obese; not lethargic Neck: trachea midline, no thyromegaly Respiratory: normal respiratory effort, lungs clear to auscultation Cardiovascular: RRR, no murmur, no edema Gastrointestinal (Abdomen): normal bowel sounds, soft, nontender, no hepatosplenomegaly Musculoskeletal: Extremities: extremities normal to inspection Skin: no rashes, warm and dry Lymphatic: no cervical lymphadenopathy Results & Data Results & Data Vital Signs (Past 12 Hours) Vital Signs Temp Pulse Pulse Resp BP Pulse Ox O2 Del Method 04/29/23 11:28 36.8 C 71 20 95/60 L 91 Nasal Cannula 04/29/23 11:26 66 19 91 Nasal Cannula 04/29/23 10:15 71 04/29/23 07:49 36.9 C 75 16 107/73 94 Nasal Cannula 04/29/23 07:31 Nasal Cannula 04/29/23 07:24 72 20 94 Nasal Cannula 04/29/23 02:48 36.1 C L 88 18 117/74 89 L Nasal Cannula O2 Flow Rate 04/29/23 11:28 6 04/29/23 11:26 6 04/29/23 10:15 04/29/23 07:49 6 04/29/23 07:31 6 04/29/23 07:24 6 04/29/23 02:48 6 Laboratory Results 04/24/23 04/24/23 04/28/23 14:58 19:37 09:31 ABG pH 7.40 ABG pCO2 55 H ABG pO2 70 L ABG HCO3 34 H ABG O2 Saturation 95.3 H ABG Base Excess 7.5 H VBG pH 7.33 L 7.34 L VBG pCO2 70 H 72 H VBG pO2 34 58 VBG HCO3 37 39 VBG O2 Saturation < 60.0 92.3 VBG Base Excess 8.3 10.3 04/28/23 04/28/23 04/29/23 16:34 19:51 08:35 ABG pH ABG pCO2 ABG pO2 ABG HCO3 ABG O2 Saturation ABG Base Excess VBG pH 7.32 L 7.34 L 7.34 L VBG pCO2 74 H 73 H 73 H VBG pO2 35 34 36 VBG HCO3 38 39 39 VBG O2 Saturation 63.8 < 60.0 62.9 VBG Base Excess 9.0 10.5 10.5 04/29/23 07:36 04/29/23 05:53 PG Care Time/CCT Total # of Minutes Spent Total Time Spent with Patient: Total time spent is greater than 50% in coordination of care (as documented) at patient's floor/unit and/or counseling patient: Coding Level of Care Code 36849 SUB INP/OBS CARE 2/35MIN Diagnoses Obesity hypoventilation syndrome E66.2 Acute and chronic respiratory failure with hypercapnia J96.22 RSV (respiratory syncytial virus infection) B33.8
[2023-04-29] MEDS: DONEPEZIL HCL 10 MG TAB PO SCH (21:29)
[2023-04-29] MEDS: ENOXAPARIN INJ 40 MG/0.4 ML SYR SQ SCH (21:30)
[2023-04-30] MEDS: LEVOTHYROXINE SODIUM 137 MCG TABLET PO SCH (06:03)
[2023-04-30 06:34] LABS: Hematocrit (blood only) 38.3 % (37.0-47.0); Hemoglobin 12.2 g/dl (12.0-16.0); Mean Corpuscular Hemoglobin 30.7 pg (25.0-34.0); Mean Corpuscular Hgb Conc 31.9 g/dL (32.0-36.0); Mean Corpuscular Volume 96.2 fL (80.0-100.0); Mean Platelet Volume 10.5 fL (9.4-12.4); Platelet Count 111 K/uL (130-400); RDW Standard Deviation 46.3 fL (36.4-46.3); Red Blood Count 3.98 M/uL (4.20-5.40); White Blood Count 4.16 K/ul (4.8-10.8)
[2023-04-30] MEDS: ALBUT/IPRATROP 3MG/0.5MG NEB 3 ML VIAL NEB SCH ×4 (07:11→20:27)
[2023-04-30] MEDS: SODIUM CHLOR 7% 4 ML NEB NEB SCH ×2 (07:11→20:28)
[2023-04-30 07:18] LABS: Calcium 8.5 mg/dl (8.6-10.3); Potassium 3.9 mmol/L (3.5-5.1)
[2023-04-30 07:24] LABS: Creatinine Clr Calc Pharmacy 64.2 ml/min; Est GFR (African American) 61.8 ml/min; Est GFR (Non-African American) 53.3 ml/min
[2023-04-30] MEDS: CALCIUM CARBONATE 1250MG TAB PO SCH (08:25)
[2023-04-30] MEDS: FLUTICASONE/VILANTEROL 200/25MCG 14 PUFFS/INHALER INH SCH (08:25)
[2023-04-30] MEDS: guaiFENesin 600 MG TABCR PO SCH ×2 (08:25→20:22)
[2023-04-30] MEDS: FAMOTIDINE 20 MG TAB PO SCH (08:25)
[2023-04-30] MEDS: CHOLECALCIFEROL 1,000 UNITS 25 MCG TAB PO SCH (08:25)
[2023-04-30] MEDS: ATORVASTATIN 40 MG TAB PO SCH (08:25)
[2023-04-30] MEDS: DOCUSATE SODIUM 100 MG CAP PO SCH ×2 (08:26→20:22)
--- NOTE | 2023-04-30 19:14 | Hospitalist Progress Note ---
Date of Service April 30, 2023 Assessment & Plan (1) RSV (respiratory syncytial virus infection): (2) Acute respiratory failure with hypoxia and hypercarbia: (3) Reactive airway disease: (4) Obesity hypoventilation syndrome: (5) Chronic kidney disease, stage 3: (6) Diastolic dysfunction: (7) Down syndrome: (8) Mood disorder: (9) Dementia: (10) Hypothyroidism: Plan Patient is a 52yoF with PMHx significant for Down's syndrome, CKD III, dyslipidemia, suspected MICHI, obesity hypoventilation syndrome, reactive airway disease, obesity, chronic diastolic dysfunction, depression, anxiety, hallucinations admitted with acute hypoxic respiratory failure in the setting of an RSV infection. RSV (respiratory syncytial virus infection) Acute respiratory failure with hypoxia and hypercarbia Reactive airway disease Obesity hypoventilation syndrome Presented to the ER with complaints of rhinorrhea, cough x 3 days of SOB On admission, afebrile, P: 79, RR: 18, BP 98/56 up to 140/72, 88% on room air up to 95% on 2L nasal cannula Chest xray noted no acute cardiopulmonary findings RSv positive on [employer] respiratory panel VBG: pH: 7.3, pCO2: 70, HCO3: 37 Received IV dexamethasone 10 mg in the ED Continue with supportive measures -oxygen as needed, wean as tolerated -duonebs scheduled -daily Breo inhaler, prn albuterol inhaler -mucinex scheduled -cough syrup prn -hypertonic saline and chest vest percussive therapy for secretions -bipap qhs for MICHI/Obesity hypoventilation component Patient to have formal sleep study however has been unable to cooperate/tolerate in past Holding automatically ordered vaccines in setting of acute URI 04/27- Pt refusing percussive vest therapy, sounding more congested, coughing. On 6L, occasionally being weaned down to 4L. Augmentin added for complicated bronchitis picture. Continue other supportive measures as tolerated. 04/28- Pt lethargic on exam, more effort with breathing today. Per nursing, noticed the same. Stat VBG ordered and reviewed, appears to be retaining CO2 at 72 given Hx of possible MICHI/Obesity hypoventilation Syndrome. uncertain if she used ordered qhs cpap/bipap overnight. Urgent Chest CT ordered w/o contrast in setting of pt's CKD, noting multifocal pneumonia though previous chest XRAYs did not note one. Added po doxycycline to Augmentin started the day before for complicated bronchitis picture. MRSA nares ordered and pending. Pt refusing percussive vest, continue neb treatments as ordered. Continuous bipap order placed for further treatment at this time. Pulm consult placed for further recommendations, appreciated. 04/29- symptoms improved, vbg not changing much, antibiotics discontinued per pulm recs as procal wnl 04/30-stable, Extensive discussion with the [facility] about pt's code status and need for bipap moving forward in order to facilitate her correction needs at the facility. Chronic kidney disease, stage 3: Cr: 1.36. Baseline 1.4-1.5 per outpatient chart review Similar to her baseline Avoid nephrotoxic agents/contrast as able, continue home diuretic Monitor with AM labs Diastolic dysfunction Chronic diastolic dysfunction Grade 2 diastolic dysfunction on echo 2021 Appears euvolemic Continue Lasix every 2 days Down syndrome Dementia Resides at [facility] Has nurse caregiver Continue donepezil Mood disorder History of depression, anxiety, hallucinations Holding home bupropion, quetiapine, trazodone Will need to taper off on discharge to avoid side effects from abrupt discontinuation as pt on high doses Hypothyroidism Continue levothyroxine HLD Continue statin CODE STATUS: Full code Diet: Low sodium DVT Prophylaxis: Lovenox SQ Dispo: From [facility], PT/OT ordered Admission and Anticipated Discharge Date Admission Date: April 24, 2023 Subjective Pt seen sitting in chair at bedside. Alert and responsive. Extensive discussion with the [facility] about pt's code status and need for bipap moving forward in order to facilitate her correction needs at the facility. Review of Systems Review of Systems: Unobtainable due to mental health condition Physical Exam Physical Exam: General: No acute distress Skin: No noted rashes or bruises Psych: could not be determined Neuro: No gross deficits while sitting in the chair HEENT: NC/AT CV: RRR Resp: Breath sounds coarse bilaterally, scattered wheezes Abdomen: Soft Extremities: Trace edema in lower extremities bilaterally. Results & Data Results & Data Vital Signs (Past 12 Hours) Vital Signs Temp Pulse Pulse Resp BP BP Pulse Ox 04/30/23 15:33 36.7 C 65 17 117/77 97 04/30/23 12:08 36.2 C L 68 16 128/72 92 04/30/23 11:38 67 20 84 L 04/30/23 08:40 59 L 01/12/24 08:08 37.0 C 78 16 116/61 92 04/30/23 07:26 04/30/23 07:16 64 20 93 04/30/23 03:41 36.5 C 66 18 117/63 95 O2 Del Method O2 Flow Rate 04/30/23 15:33 Nasal Cannula 3 04/30/23 12:08 Nasal Cannula 2 04/30/23 11:38 Room Air 04/30/23 08:40 04/30/23 08:08 Nasal Cannula 3 04/30/23 07:26 BiPAP 4 04/30/23 07:16 Nasal Cannula 4 04/30/23 03:41 Nasal Cannula 4 (3) Reactive airway disease Asthma complication type: with acute exacerbation Asthma persistence: unspecified Asthma severity: unspecified severity Qualified Code(s): J45.901 - Unspecified asthma with (acute) exacerbation
[2023-04-30] MEDS: DONEPEZIL HCL 10 MG TAB PO SCH (20:21)
[2023-04-30] MEDS: ENOXAPARIN INJ 40 MG/0.4 ML SYR SQ SCH (20:22)
[2023-05-01 05:16] LABS: Hematocrit (blood only) 39.6 % (37.0-47.0); Hemoglobin 12.6 g/dl (12.0-16.0); Mean Corpuscular Hemoglobin 30.4 pg (25.0-34.0); Mean Corpuscular Hgb Conc 31.8 g/dL (32.0-36.0); Mean Corpuscular Volume 95.4 fL (80.0-100.0); Mean Platelet Volume 10.9 fL (9.4-12.4); Platelet Count 160 K/uL (130-400); RDW Coefficient of Variation 12.9 % (11.5-14.5); RDW Standard Deviation 45.5 fL (36.4-46.3); Red Blood Count 4.15 M/uL (4.20-5.40); White Blood Count 5.57 K/ul (4.8-10.8)
[2023-05-01 05:31] LABS: BUN Creatinine Ratio 19.1 (10-20); Calcium 8.7 mg/dl (8.6-10.3); Creatinine Clr Calc Pharmacy 64.8 ml/min; Est GFR (African American) 62.5 ml/min; Est GFR (Non-African American) 53.9 ml/min; Potassium 3.8 mmol/L (3.5-5.1)
[2023-05-01] MEDS: LEVOTHYROXINE SODIUM 137 MCG TABLET PO SCH (06:17)
[2023-05-01] MEDS: ALBUT/IPRATROP 3MG/0.5MG NEB 3 ML VIAL NEB SCH ×3 (07:13→15:41)
[2023-05-01] MEDS: SODIUM CHLOR 7% 4 ML NEB NEB SCH (07:13)
[2023-05-01] MEDS: guaiFENesin 600 MG TABCR PO SCH (08:02)
[2023-05-01] MEDS: CALCIUM CARBONATE 1250MG TAB PO SCH (08:03)
[2023-05-01] MEDS: ATORVASTATIN 40 MG TAB PO SCH (08:03)
[2023-05-01] MEDS: FAMOTIDINE 20 MG TAB PO SCH (08:03)
[2023-05-01] MEDS: CHOLECALCIFEROL 1,000 UNITS 25 MCG TAB PO SCH (08:03)
[2023-05-01] MEDS: FUROSEMIDE 20 MG TAB PO SCH (08:03)
[2023-05-01] MEDS: FLUTICASONE/VILANTEROL 200/25MCG 14 PUFFS/INHALER INH SCH (08:04)
[2023-05-01] MEDS: DOCUSATE SODIUM 100 MG CAP PO SCH (08:08)
--- NOTE | 2023-05-01 15:36 | Discharge Summary ---
Discharge Summary Date of Service May 01, 2023 Notes For Next Care Provider Medication Changes From Visit Wellbutrin dose decreased to 100mg daily in anticipation of complete wean Seroquel dose decreased to 100mg qhs Trazodone dose decreased to 25mg qhs Please ensure bipap use at nighttime. Admission HPI Per Admitting Provider Patient is a 52-year-old female with PMH Down's syndrome, CKD III, dyslipidemia, suspected MICHI, obesity hypoventilation syndrome, obesity, chronic diastolic dysfunction, depression, anxiety, hallucinations, presented to ER with complaint of cough x 3 days. Limited history obtained from patient secondary to cognitive status. Most of history obtained from nurse caregiver and chart review. Reports 3 days ago started with rhinorrhea, mild cough. Did not have any fevers. Reports did home COVID-19 test yesterday and 2 days ago which were negative. States today cough worsened and is productive of clear phlegm. This afternoon had coughing episode and seemed SOB and checked pulse ox and was reported in 70's on room air. States patient seems to be wheezing this afternoon. Decreased appetite today. Denies any known ill contacts in house. Caregiver reports patient has suspected MICHI however has not been able to complete sleep study. States patient will ambulate with walker but has fear of falling so is reluctant to ambulate a lot. Denies fever/chills, diaphoresis, N/V/D/C, SOTO, syncope, CP, SOB, otalgia, abdominal pain, extremity weakness, increased extremity edema, rashes, urinary symptoms. Principal Dx & Hospital Course #1 = Principal Diagnosis Updated Medication List Medication Instructions Recorded Confirmed Type calcium carbonate 600 mg calcium 600 mg PO QAM 01/18/19 04/24/23 History (1,500 mg) tablet donepezil 10 mg tablet 10 mg PO QPM 01/18/19 04/24/23 History docusate sodium 100 mg capsule 100 mg PO BID 01/22/22 04/24/23 History budesonide-formoterol HFA 160 2 inh inhalation BID 06/11/22 04/24/23 History mcg-4.5 mcg/actuation aerosol inhaler (Symbicort) cyclosporine 0.05 % eye drops in a 1 drp OPB Q12H 06/11/22 04/24/23 History dropperette (Restasis) zinc oxide-cod liver oil 40 % 1 applic topical BID 06/11/22 04/24/23 History topical paste (Desitin) albuterol sulfate 90 mcg/actuation 2 puff inhalation Q4H PRN 12/03/22 04/24/23 History aerosol inhaler (Ventolin HFA) COUGH/SHORT OF BREATH atorvastatin 40 mg tablet 40 mg PO QAM 12/03/22 04/24/23 History cholecalciferol (vitamin D3) 25 25 mcg PO QAM 12/03/22 04/24/23 History mcg (1,000 unit) capsule (Vitamin D3) ciclopirox 0.77 % topical gel 1 applic topical DAILY PRN 12/03/22 04/24/23 History NEEDED famotidine 20 mg tablet 20 mg PO QAM 12/03/22 04/24/23 History furosemide 20 mg tablet 20 mg PO DAILY PRN WT GAIN 3#/24 12/03/22 04/24/23 History HRS OR 5#/48 HRS acetaminophen 500 mg tablet 500 mg PO Q4H PRN 03/30/23 04/24/23 History (Tylenol Extra Strength) FEVER/SOTO/MENSTRUAL CRAMPS/PAIN aluminum-mag hydroxide-simethicone 10 ml PO TID PRN Indigestion 03/30/23 04/24/23 History 200 mg-200 mg-20 mg/5 mL oral susp bismuth subsalicylate 262 mg/15 mL 524 mg PO DIRECTED PRN 03/30/23 04/24/23 History oral suspension (Pepto-Bismol) NAUSEA/VOMITING bupropion HCl 200 mg tablet,12 hr 200 mg PO QAM 03/30/23 04/24/23 History sustained-release carbamide peroxide 6.5 % ear drops 5 drp otic (ear) UD 03/30/23 04/24/23 History (Ear Wax Removal Drops) carboxymethylcellulose sodium 1 % 1 drp OPB DIRECTED PRN Dry Eyes 03/30/23 04/24/23 History eye drops (Artificial Tears (carboxymethylcellulose)) dextromethorphan-guaifenesin 10 10 ml PO Q4H PRN Cough 03/30/23 04/24/23 History mg-100 mg/5 mL oral syrup furosemide 20 mg tablet (Lasix) 20 mg PO Q2D 03/30/23 04/24/23 History hydrocortisone 1 % topical cream 1 applic topical TID PRN Rash 03/30/23 04/24/23 History levothyroxine 137 mcg tablet 137 mcg PO QAM 03/30/23 04/24/23 History loperamide 2 mg capsule 2 mg PO UD PRN Diarrhea 03/30/23 04/24/23 History magnesium hydroxide 400 mg/5 mL 10 ml PO Q6H PRN Constipation 03/30/23 04/24/23 History oral suspension (Milk of Magnesia) menthol 2.7 mg lozenges (Cough 2.7 mg PO Q4H PRN Cough 03/30/23 04/24/23 History Drops) neomycin-bacitracn Zn-polymyx 3.5 1 applic topical BID PRN SMALL 03/30/23 04/24/23 History mg-400 unit-5,000 unit/gram top CUTS/ABRASIONS oint (Triple Antibiotic) nystatin 100,000 unit/gram topical 1 applic topical BID PRN dermatitis 03/30/23 04/24/23 History powder phenylephrine HCl 10 mg tablet 10 mg PO Q4H PRN COLD/RUNNY NOSE 03/30/23 04/24/23 History (Sudafed PE) quetiapine 100 mg tablet 100 mg PO BID 03/30/23 04/24/23 History trazodone 50 mg tablet 50 mg PO HS 03/30/23 04/24/23 History fluoride (sodium) 1.1 % dental 1 applic dental BID 04/23/23 04/24/23 History cream (Denta 5000 Plus) bupropion HCl 100 mg tablet,12 hr 100 mg PO DAILY #30 ea 05/01/23 Rx sustained-release (Wellbutrin SR) quetiapine 100 mg tablet (Seroquel) 100 mg PO HS #30 tabs 05/01/23 Rx trazodone 50 mg tablet 25 mg (1/2 x 50 mg) PO HS #30 tabs 05/01/23 Rx Hospital Stay Data Consultations 04/24/23 17:45 ED Decision to Admit Stat 04/28/23 11:25 Consult Pulmonology Routine Diagnostic Imagining Performed 04/28/23 09:15 CT chest diagnostic wo con Urgent Discharge Instructions Given to Patient (Per Discharging Provider) Stacey, We admitted you with a severe RSV infection and made some changes to your medications. You have Obesity hypoventilation syndrome and require use of a CPAP/biPAP m achine at night. To help with not making you as drowsy during the day, the utilization engineer also recommended that you avoid or stop any medications that can make you sleepy or drowsy or affect your brain. As such you will eventually need to stop your home seroquel, trazodone and Wellbutrin. We held those medications while you were here, but since you cannot just stop taking it without side effects, we are decreasing your dose on discharge with the goal to eventually wean you off of it completely. Please ensure follow up with your primary care provider and/or psychiatry for this after discharge. Please also keep close follow up with your utilization engineer after discharge as well. Please ensure that you use your bipap at night every night to avoid lethargy and you not being able to breathe. Pulmonology is also recommending weight loss if you can to help with your breathing. It was a pleasure taking care of you while you were here.
== END 2023-05-01 15:56 | DRG 193 ==
LOC: ED 14:23 → EDINP 17:55 → SUATTDRO 17:55 → EDINP 19:47 → 2W 04-25 16:52